=== PATIENT | male | born 1990 | race Caucasian/White ===

== ENCOUNTER → 2017-07-14 12:34 | Outpatient (CLI) | payer SELFPAY ==
[2017-07-14 16:12] LABS: Amphetamine Urine VISTA NEGATIVE (<1000 ng/mL); Barbiturate Urine VISTA NEGATIVE (< 200 ng/mL); Benzodiazepine Urine VISTA NEGATIVE (< 200 ng/mL); Cocaine Urine VISTA NEGATIVE (< 300 ng/mL); Ecstacy Urine VISTA NEGATIVE (< 500 ng/mL); Methadone Urine VISTA NEGATIVE (< 300 ng/mL); PCP Urine VISTA NEGATIVE (< 25 ng/mL); THC Urine VISTA POSITIVE (< 50 ng/mL); Vista UDS pH Range 6
== END ==
PROVIDERS: Family Provider Family Medicine; PCP Family Medicine; Visit Provider Family Medicine
DX: Z02.1 Encounter for pre-employment examination (principal)
CPT/HCPCS: 80307

== ENCOUNTER → 2017-07-25 10:55 | Outpatient (CLI) | payer SELFPAY ==
[2017-07-25 12:39] LABS: Amphetamine Urine VISTA NEGATIVE (<1000 ng/mL); Barbiturate Urine VISTA NEGATIVE (< 200 ng/mL); Benzodiazepine Urine VISTA NEGATIVE (< 200 ng/mL); Cocaine Urine VISTA NEGATIVE (< 300 ng/mL); Ecstacy Urine VISTA NEGATIVE (< 500 ng/mL); Methadone Urine VISTA NEGATIVE (< 300 ng/mL); PCP Urine VISTA NEGATIVE (< 25 ng/mL); THC Urine VISTA NEGATIVE (< 50 ng/mL); Vista UDS pH Range 6
== END ==
PROVIDERS: Family Provider Family Medicine; PCP Family Medicine; Visit Provider Family Medicine
DX: Z02.1 Encounter for pre-employment examination (principal)
CPT/HCPCS: 80307

== ENCOUNTER 2017-12-16 23:03 | Emergency (ER) | payer SELFPAY ==
[2017-12-16 23:03] VITALS: BP 129/83; PULSE 51; RESP 16; TEMP 36.3; O2SAT 99; BMI 21.4
[2017-12-16 23:26] LABS: Absolute Lymphocyte Count 2.47 X10^3/ul (0.83-4.51); Absolute Neutrophil Count 3.7 X10^3/uL (2.0-7.7); Basophil# 0.02 X10^3/uL; Basophil% 0.3 % (0-1); Eosinophil# 0.11 X10^3/uL; Eosinophils% 1.6 % (0-5); Hemoglobin 14.4 g/dl (13.0-16.5); Lymphocyte # 2.47 X10^3/ul (4.0); Lymphocyte % 35.8 % (19-41); Mean Corp Hgb Conc 35.1 g/gl (32-36); Mean Corpuscular Hgb 29.9 pg (27.0-32.0); Mean Corpuscular Volume 85.1 fL (80-94); Monocyte# 0.58 X10^3/uL; Monocyte% 8.4 % (0-10); Neutrophil # 3.71 X10^3/uL (2.7-7.7); Neutrophil % 53.8 % (47-70); POSITIVE COUNT NO; POSITIVE DIFFERENTIAL NO; POSITIVE MORPHOLOGY NO; Platelet Count 205 K/mm3 (150-450); RBC Distribution Width CV 12.2 % (11.6-14.6); RBC Distribution Width SD 37.4 fl (35.1-43.9); Red Blood Count 4.82 M/mm3 (4.6-6.2); White Blood Count 6.9 K/mm3 (4.4-11.0)
[2017-12-16 23:39] LABS: Anion Gap 7 (5-15); BUN 14 mg/dL (7-18); Calcium,Total 9.4 mg/dL (8.5-10.1); Chloride 106 mmol/L (98-107); Creatinine, Serum 1.17 mg/dL (0.70-1.30); EST Glomerular Filtration Rate 78 mL/min (>60); Est Glom Filt Rate - Afr Amer 94 mL/min (>60); Estimated Creatinine Clearance 116.55 ml/min; Glucose 93 mg/dL (74-106); Potassium 3.8 mmol/L (3.5-5.1); Sodium Level 142 mmol/L (136-145)
--- NOTE | 2017-12-16 23:40 | ED.DCSUM_ITS ---
- ER Visit Summary Date of Service: 12/16/17 Chief Complaint: Suicidal ideation History of Present Illness: The patient is a 27 M who presents with suicidal ideation by police. The patient has a 2-year-old son with his ex-girlfriend. He broke up with his ex-girlfriend, and she will not let him see his son. This has been going on for almost 2 years. He reports increasing thoughts of suicide. He has a depressed mood. He thought that he would cut his wrists. He shared this on social media, and a friend called police. Police did identify the knife that the patient plan to use. Patient denies any history of a psychiatric diagnosis or hospitalization. Denies suicide attempts in the past. Denies any medical complaints or medical problems. Physical Examination: Afebrile vital signs unremarkable except for heart rate of 51. He is nontoxic and in no acute distress. Depressed mood and flat affect. Head is atraumatic. Cranial nerves grossly intact. Heart regular. Lungs clear. Moves all extremities. Skin appears normal. Test Results: Laboratory studies, tox screen, alcohol level pending. Emergency Department Course and Treatment: Patient had suicide precautions. Medical clearance was ordered. Results are pending. Dr. Roberson will check results. He has been pink slipped by police. He will need evaluation by crisis and hospitalization. Treatment Plan: As above Disposition: Transfer for psychiatric care pending crisis evaluation Impression: 1. Suicidal ideation. This note was generated with [employer] dictation software. It may contain incorrect words, spelling, and punctuation that were not noted in review of the chart prior to signing ED Disposition - Plan for ED Patient: Chief Complaint: Suicidal Referrals: Armando Ro DO [Primary Care Provider] -
[2017-12-16 23:43] LABS: Alcohol, Blood (Medical)-Serum < 3.0 mg/dL
[2017-12-17] VITALS (13 sets, daily range): BP systolic 112–130; BP diastolic 62–79; PULSE 60–64; RESP 14–18; O2SAT 98–100
[2017-12-17 01:44] LABS: Amphetamine Urine VISTA NEGATIVE (<1000 ng/mL); Barbiturate Urine VISTA NEGATIVE (< 200 ng/mL); Benzodiazepine Urine VISTA NEGATIVE (< 200 ng/mL); Cocaine Urine VISTA NEGATIVE (< 300 ng/mL); Ecstacy Urine VISTA NEGATIVE (< 500 ng/mL); Methadone Urine VISTA NEGATIVE (< 300 ng/mL); PCP Urine VISTA NEGATIVE (< 25 ng/mL); THC Urine VISTA POSITIVE (< 50 ng/mL); Vista UDS pH Range 6
--- NOTE | 2017-12-17 05:09 | EKG12_ITS ---
Test Reason : Blood Pressure : / mmHG Vent. Rate : 050 BPM Atrial Rate : 050 BPM P-R Int : 160 ms QRS Dur : 094 ms QT Int : 444 ms P-R-T Axes : -26 088 059 degrees QTc Int : 404 ms Sinus bradycardia with sinus arrhythmia Otherwise normal ECG Confirmed by LEANN DE ANDA, LILIA ([id number]), movie editor KAVITHA JOEL ([id number]) on 12/19/2017 3:13:21 PM Referred By: BRE Confirmed By:LILIA NORIEGA MD
[2017-12-17 05:40] LABS: AST(SGOT) 22 U/L (15-37); Alanine Aminotransfer ALT/SGPT 24 U/L (16-61); Albumin, Serum 4.6 g/dL (3.2-5.0); Alkaline Phosphatase 48 U/L (45-117); Bilirubin, Direct 0.24 mg/dL (0.00-0.30); Globulin 3.5 g/dL (2.2-4.2); Protein, Total 8.1 g/dL (6.4-8.2)
--- NOTE | 2017-12-17 06:47 | ED.RN ---
PER ANDRE; NILSON; PT IS TO BE TRANSPORTED BY [facility] WHEN ACCEPTED TO [facility]
--- NOTE | 2017-12-17 11:21 | ED.RN ---
DARCY WITH CRISIS IS TOUCHING BASE WITH [facility] AND WILL CALL US BACK
--- NOTE | 2017-12-17 11:29 | ED.RN ---
PER DARCY WITH CRISIS; PT HAS BEEN ACCEPTED BY [facility], THERE IS ONE PERSON AHEAD OF HIM FOR A BED; THEY SHOULD HAVE ONE AVAILABLE FOR HIM THIS AFTERNOON
== END 2017-12-17 20:59 ==
LOC: ED 12-17 00:13
PROVIDERS: Emergency Provider Emergency Medicine
DX: R45.851 Suicidal ideations (principal); Z72.0 Tobacco use
CPT/HCPCS: 80048; 80076; 80307; 80320; 85025; 93005; 99282; G0480

== ENCOUNTER 2018-05-23 09:50 | Inpatient (IN) | payer SELFPAY ==
[2018-05-23 09:53] VITALS: BP 134/76; PULSE 16; RESP 68; TEMP 36.8; O2SAT 99; BMI 19.6
--- NOTE | 2018-05-23 10:07 | CT_ITS ---
STUDY: CT ABDOMEN AND PELVIS WITH CONTRAST REASON FOR EXAM: Male, 28 years old. Lower abdominal pain and constipation for 2 days. History of prior bowel obstruction. RADIATION DOSAGE (If Supplied By Facility): CTDIvol = ( 12.82 ) mGy, DLP = ( 670.98 ) mGycm TECHNIQUE: Transaxial images were obtained from the dome of the diaphragm to the symphysis pubis with oral contrast. 100CC ml of Isovue 300 contrast was administered. Sagittal and coronal images were reconstructed. Individualized dose optimization techniques were used for this CT. COMPARISON: Comparison is made with prior study dated November 29, 2016. FINDINGS: The visualized lung bases are unremarkable. The visualized portions of the heart are within normal limits. Normal liver. Normal gallbladder and extrahepatic biliary system. Normal spleen. Normal pancreas. Normal bilateral adrenal glands. Normal right kidney. Normal left kidney. Normal visualized stomach. There are dilated loops of the small intestine with a non-distended colon consistent with a small bowel obstruction. The transition point is in the distal ileum. There is thickening of the terminal ileum. The colon is not well distended with oral contrast. The appendix is visualized and appears normal. Normal abdominal aorta. Normal inferior vena cava. Normal retroperitoneum. Normal urinary bladder. Minimal amount of free fluid is seen in the cul-de-sac. Normal abdominal wall. Normal osseous structures. CT/Abdomen/Pelvis WITH Contrast IMPRESSION: There is evidence of small bowel obstruction with the transition point in the distal ileum. There appears to be thickening of the distal and terminal ileum. Clinical correlation is recommended. Electronically Signed: Javier Clifford MD at 12:52 EST Tel [phone], Service support ,
--- NOTE | 2018-05-23 10:09 | ED.VISSUMM ---
- ER Visit Summary Date of Service: 05/23/18 Chief Complaint: Abdominal pain History of Present Illness: The patient is a 28 M with a history of small bowel obstruction after eating a large amount of peanuts. The patient presents today with lower midline abdominal pain after eating peanuts again yesterday. He has no nausea or vomiting. No diarrhea. His last bowel movement was 2 days ago and it was normal. He says he is not passing gas. Denies any abdominal surgical history. Denies fevers. Denies urinary symptoms. Physical Examination: Afebrile and vital signs unremarkable. Alert and oriented. No acute distress. Lower abdomen is diffusely tender to palpation. No guarding or rebound. No distention. Hypoactive bowel sounds noted. Skin appears normal. Test Results: Laboratory studies, urinalysis, and CT pending. Emergency Department Course and Treatment: Patient treated with fluids, morphine, and Zofran while awaiting results. Labs are all fairly unremarkable. He required a second dose of morphine. CT showed evidence of a small bowel obstruction with a transition point at the distal ileum. Patient was discussed with the hospitalist and will be admitted. Treatment Plan: As above Disposition: Admission Impression: 1. Small bowel obstruction This note was generated with [employer] dictation software. It may contain incorrect words, spelling, and punctuation that were not noted in review of the chart prior to signing ED Disposition - Plan for ED Patient: Chief Complaint: Abd Pain Referrals: Care Physician,No Primary [Primary Care Provider] -
[2018-05-23 10:28] LABS: Absolute Lymphocyte Count 1.55 X10^3/ul (0.83-4.51); Basophil# 0.01 X10^3/uL; Basophil% 0.2 % (0-1); Eosinophil# 0.11 X10^3/uL; Eosinophils% 1.8 % (0-5); Hematocrit 45.4 % (40-54); Hemoglobin 15.3 g/dl (13.0-16.5); Lymphocyte # 1.55 X10^3/ul (4.0); Lymphocyte % 25.5 % (19-41); Mean Corp Hgb Conc 33.7 g/gl (32-36); Mean Corpuscular Hgb 29.3 pg (27.0-32.0); Mean Platelet Vol. 10.1 fl (6.2-12.0); Monocyte# 0.43 X10^3/uL; Monocyte% 7.1 % (0-10); Neutrophil # 3.98 X10^3/uL (2.7-7.7); Neutrophil % 65.2 % (47-70); Platelet Count 212 K/mm3 (150-450); RBC Distribution Width CV 12.4 % (11.6-14.6); RBC Distribution Width SD 39.8 fl (35.1-43.9); Red Blood Count 5.22 M/mm3 (4.6-6.2); White Blood Count 6.1 K/mm3 (4.4-11.0)
[2018-05-23 10:29] LABS: POSITIVE COUNT NO; POSITIVE DIFFERENTIAL NO; POSITIVE MORPHOLOGY NO
[2018-05-23] MEDS: Morphine 4 MG/ML Syringe IV ×3 (10:35→13:19)
[2018-05-23] MEDS: Ondansetron 4 MG/2 ML Vial IV (10:35)
[2018-05-23] MEDS: 0.9% Normal Saline 1,000 ML 1000 ML IV (10:35)
[2018-05-23 10:42] LABS: ALB/GLOB Ratio 1.1 RATIO (0.9-2.4); AST(SGOT) 15 U/L (15-37); Alanine Aminotransfer ALT/SGPT 22 U/L (16-61); Albumin, Serum 4.2 g/dL (3.2-5.0); Alkaline Phosphatase 50 U/L (45-117); Anion Gap 5 (5-15); BUN 20 mg/dL (7-18); BUN/Creat Ratio 17.7 RATIO (10-20); Calcium,Total 9.3 mg/dL (8.5-10.1); Chloride 107 mmol/L (98-107); Creatinine, Serum 1.13 mg/dL (0.70-1.30); EST Glomerular Filtration Rate 81 mL/min (>60); Est Glom Filt Rate - Afr Amer 98 mL/min (>60); Estimated Creatinine Clearance 109.77 ml/min; Globulin 3.8 g/dL (2.2-4.2); Glucose 104 mg/dL (74-106); Lipase 104 U/L (73-393); Potassium 4.3 mmol/L (3.5-5.1); Sodium Level 142 mmol/L (136-145)
[2018-05-23 12:24] VITALS: BP 127/84; PULSE 78; RESP 16; O2SAT 100
[2018-05-23 12:29] LABS: Bacteria 0 SEEN /hpf (None Seen); Mucous, Urine 0 SEEN /hpf (<or=2+); Red Blood Cells-Urine 0 SEEN /hpf (0-5); Squamous Epithelial Cells - UA 0 SEEN /hpf (0-5); White Blood Cells 0 SEEN /hpf (0-5)
[2018-05-23 12:31] LABS: Color, Urine Yellow (Yellow); Glucose, Dipstick Normal (Normal); Ketone-Dipstick Negative (Negative); Leukocyte Esterase-Dipstick Negative /ul (Negative); Nitrite-Dipstick Negative (Negative); Occult Blood-Urine Negative /ul (Negative); Protein-Dipstick Negative (Negative); Specific Gravity, Urine 1.005 (1.002-1.030); Urine Bilirubin Dipstick Negative (Negative); Urine Clarity Clear (Clear); Urine Urobilinogen Normal (Normal)
[2018-05-23 13:21] VITALS: BP 128/78; PULSE 61; RESP 16; O2SAT 97
--- NOTE | 2018-05-23 13:25 | NURSING ---
MED SURG SBO SEMENTI
--- NOTE | 2018-05-23 13:39 | HP.PCM_ITS ---
Problem List (1) SBO (small bowel obstruction) Status: Acute (2) Allergic angioedema Status: Suspected History of Present Illness Date of Admission: 05/23/18 Chief Complaint: abdominal pain The patient is a 28 year old M with no significant past medical history who presented to the emergency department at [facility] on 05/23/2018 complaining of severe abdominal pain that began after eating peanuts the previous day. He had a similar episode in the past after eating peanuts. He denies any rash or pruritus. He does not know of anyone in his family who has a peanut allergy. He has had no swelling of his tongue, lips or face. He denies nausea or vomiting. His last bowel movement was 2 days ago. Vital signs of presentation to the emergency room were temperature 98.2, pulse rate 16, blo od pressure 134/76, respiratory rate 16 and he was 99% saturated on room air. CBC was within normal limits and the electrolytes were within normal limits. BUN is increased to 20 with a creatinine of 1.13. LFTs are unremarkable. UA was negative. A CT scan of the abdomen and pelvis showed evidence of small bowel obstruction the transition point in the distal ileum. There appeared to be thickening of the distal and terminal ileum. He is being admitted for SBO and I suspect he may have angioedema of the bowel.....possibly due to a peanut allergy. Past Medical History Allergies Fish Containing Products Allergy (Verified 05/23/18 09:56) Itching Home Medications: Ambulatory Orders Medication Instructions Recorded No Known/Unobtainable [No Known 11/29/16 Home Medications] Surgical History: no surgical history Psychiatric History: No pertinent psych hx Lives: Alone Smoking Status: Never smoker Alcohol: None Drugs: None - *Family History Maternal History Items: Cancer - Breast cancer Review of Systems Constitutional: Denies: Chills, Fever, Weight Change HEENT: Denies: Head Aches, Sinus Congestion, Sinus Drainage Cardiovascular: Denies: Chest Pain, Palpitations Respiratory: Denies: Cough, Shortness of breath at rest, Sputum production Gastrointestinal: Reports: Abdominal Pain. Denies: Diarrhea, Nausea, Vomiting Genitourinary: Denies: Dysuria Musculoskeletal: Denies: Joint Pain, Joint Tenderness Skin: Denies: Rash, Wounds Neurological: Denies: Numbness, Tingling, Focal weakness Psychiatric: Denies: Anxiety, Depression, Homicidal Ideations, Suicidal Ideations Hematologic/ Lymphatic: Denies: Easy Bruising, Easy Bleeding VTE Information - Inpt Only VTE Present on Admission: No VTE Mechan Device Prophylaxis: None VTE Pharm Prophylaxis ordered?: No Reason prophylaxis not ordered:: Treatment Not Indicated - he is ambulatory and is at very low risk Patient Problems: Active and Suspected Problems SBO (small bowel obstruction) (Acute) Allergic angioedema (Suspected) - Physical Exam General: Alert, Oriented x3, Cooperative, Well developed, Well nourished HEENT: Atraumatic, PERRLA, EOMI Oral: Dry Mucosa Neck: Supple, No JVD, Negative Carotid Bruits, No Nodes, No Nuchal Rigidity, Trachea Midline Lungs: Clear to auscultation, Normal air movement Cardiovascular: Regular rate, Normal S1, Normal S2, No murmurs, No rub noted, No Gallop Abdomen: No Hepato-splenomegaly, Hypoactive Bowel Sounds, Distended - and tympanic, Tender - diffusely tender to palpation in the lower abd no guarding and no rebound tenderness. Extremities: No edema, Capillary Refill Less than 3 Seconds Skin: No rashes, No breakdown Musculoskeletal: No Tenderness to Palpation of Joints or Extremities Neurological: Cranial nerves II-XII grossly intact, Neuro grossly intact Psych/Mental Status: Normal Affect, Appropriate Vital Signs Temp Pulse Resp BP Pulse Ox 98.2 F 61 16 128/78 H 97 05/23/18 09:53 05/23/18 13:21 05/23/18 13:21 05/23/18 13:21 05/23/18 13:21 Oxygen Delivery Method Room Air Weight: 179 lb Body Mass Index (BMI) 19.6 Laboratory Tests Past 24 Hrs 05/23/18 05/23/18 05/23/18 10:18 10:18 12:19 WBC 6.1 RBC 5.22 Hgb 15.3 Hct 45.4 MCV 87.0 MCH 29.3 MCHC 33.7 RDW 12.4 RDW Differential 39.8 Plt Count 212 MPV 10.1 Immature Gran % (Auto) 0.200 Neut % (Auto) 65.2 Lymph % (Auto) 25.5 [place] % (Auto) 7.1 Eos % (Auto) 1.8 Baso % (Auto) 0.2 Absolute Neuts (auto) 4.0 Absolute Lymphs (auto) 1.55 Total Counted Not Reportable Sodium 142 Potassium 4.3 Chloride 107 Carbon Dioxide 30.0 Anion Gap 5 BUN 20 H Creatinine 1.13 Estim Creat Clear Calc 109.77 Est GFR (MDRD) Af Amer 98 Est GFR (MDRD) Non-Af 81 BUN/Creatinine Ratio 17.7 Glucose 104 Calcium 9.3 Total Bilirubin 0.40 AST 15 ALT 22 Alkaline Phosphatase 50 Total Protein 8.0 Albumin 4.2 Globulin 3.8 Albumin/Globulin Ratio 1.1 Lipase 104 Urine Color Yellow Urine Clarity Clear Urine pH 7.0 Ur Specific [place] 1.005 Urine Protein Negative Urine Glucose (UA) Normal Urine Ketones Negative Urine Occult Blood Negative Urine Nitrite Negative Urine Bilirubin Negative Urine Urobilinogen Normal Ur Leukocyte Esterase Negative Urine RBC 0 SEEN Urine WBC 0 SEEN Ur Squamous Epith Cells 0 SEEN Urine Bacteria 0 SEEN Urine Mucus 0 SEEN Assessment/Plan All Active Problems SBO (small bowel obstruction) (Acute) Colitis (Acute) Cellulitis (Resolved) Hip bursitis, left (Resolved) Tinea pedis of both feet (Resolved) Impressions 1. Small bowel obstruction suspected to be secondary to angioedema of the bowel possibly due to a peanut allergy 2. Mild dehydration [facility] because he has no nausea, no vomiting and CT does not show distention of the stomach Consult Dr. Ingrid Wolff for small bowel obstruction Start Benadryl, Pepcid and Solu-Medrol for suspected angioedema Send a food allergy panel C1q quantitative and functional Hydrate Encourage the patient to ambulate Code Visit Inpatient E&M: 49410 Init Hosp L2
[2018-05-23 14:32] VITALS: BP 118/69; PULSE 61; RESP 18; TEMP 37.2; O2SAT 99
[2018-05-23 14:33] VITALS: BMI 19.6
[2018-05-23 14:37] VITALS: BMI 19.6
[2018-05-23] MEDS: Lactated Ringers 1,000 ML 150 ML IV ×2 (14:46→20:41)
[2018-05-23] MEDS: Famotidine 20 MG Tablet 40 MG PO ×2 (14:47→21:39)
[2018-05-23] MEDS: DiphenhydrAMINE 50 MG/ML Syringe 25 MG IV ×2 (14:47→20:37)
[2018-05-23 14:57] VITALS: PULSE 60
[2018-05-23 15:21] LABS: Erythrocyte Sedimentation Rate < 1 mm/hr (0-15)
[2018-05-23 15:40] LABS: CRP < 2.90 mg/L (0.0-3.0)
[2018-05-23] MEDS: 0.9% NaCl Peripheral Flush Adult/Peds IV ×2 (17:30→17:33)
[2018-05-23 20:32] VITALS: BP 120/81; PULSE 52; RESP 16; TEMP 36.7; O2SAT 99
[2018-05-23] MEDS: morphine 10 MG/ML Syringe 6 MG IV (20:38)
--- NOTE | 2018-05-23 20:47 | PCM.CONS.B ---
- Consult Date of Consult: 05/23/18 - Reason for Consult Chief Complaint: abdominal pain, bowel obstruction History of Present Illness: 28 y/o WM presents with partial bowel obstruction. Had similar symptoms earlier this year, but patient states that this time, he came to the hospital earlier. Unknown family history for inflammatory bowel disease. Denies nausea/emesis. Denies fevers. Was to be scheduled for GI evaluation, but patient never obtained this. Past Medical History: denies major medical illnesses Past Surgical History: denies Past Injuries: denies head injuries, history of right foot fracture Medications: denies taking chronic medications Allergies: Has no known drug allergies Social history: TOB use denies Review of Systems: General - denies fevers, has weight loss 15-30# in past few days - patient states Cardiovascular denies chest pain, denies history of heart attack Pulmonary denies shortness of breath, denies coughing up blood Gastrointestinal as per HPI, denies blood in stools, denies diarrhea Neurological denies numbness/weakness of extremities, denies seizures Genitourinary denies burning with urination, denies blood in urine Hematological denies spontaneous/prolonged bleeding Skin denies open nonhealing wounds Musculoskeletal had right foot fracture in past, has some knee pains Endocrine denies diabetes Psychological denies suicidal ideation, denies hallucinations Physical examination: Vital signs Temp 97.7F HR 54 RR 16 BP 113/68 General WD/WN WM in no apparent distress, alert and oriented, not septic appearing HEENT Normocephalic. EOM intact with sclera clear and no icterus noted. Neck is supple with no jugular venous distention noted. Trachea is midline. Lungs normal breath sounds. No rales/rhonchi/wheezing noted. No labored breathing noted, such as retractions. No cough heard. Heart regular Abdomen soft and benign, generalized tenderness to deep palpation but no peritoneal signs, decreased bowel sounds, no distention of tympany noted Extremities no calf tenderness noted. No pitting edema noted. . Genitourinary/Rectal deferred Skin normal skin integrity. Neurological cranial nerves II-XII intact. Normal motor strength in arms and legs. No localized numbness detected. Psychological normal affect, patient is calm and appropriate Impression: terminal ileitis partial SBO Discussion/Plan: I have discussed the above with the patient. I have offered colonoscopy (with attempt to intubated ileocecal valve and evaluate terminal ileum), possible biopsies for evaluation of terminal ileitis. I have explained the procedure to the patient. I have counseled the patient as to the risks of the procedure, including but not limited to: infection, bleeding, injury to any intraabdominal organs such as liver/spleen, perforation of the GI tract, inability to complete the procedure, complications of anesthesia, etc. - he understands. He wishes to proceed. Will await resolution of bowel obstruction, suspect that this should happen in next 24 - 48 hours, and plan for colonoscopy, probably on Tuesday. I have answered all questions to the patient?s satisfaction and the patient has no further questions.
[2018-05-24] MEDS: morphine 10 MG/ML Syringe 6 MG IV (00:02)
[2018-05-24 02:30] VITALS: BP 113/69; PULSE 52; RESP 16; TEMP 36.4; O2SAT 99
[2018-05-24] MEDS: DiphenhydrAMINE 50 MG/ML Syringe 25 MG IV ×3 (02:34→13:56)
[2018-05-24] MEDS: Lactated Ringers 1,000 ML 150 ML IV ×2 (02:36→09:22)
[2018-05-24 07:51] VITALS: BP 120/69; PULSE 56; RESP 18; TEMP 36.7; O2SAT 99
[2018-05-24] MEDS: Famotidine 20 MG Tablet 40 MG PO (07:57)
--- NOTE | 2018-05-24 09:45 | CASEMGMT ---
CAMELIA NOGUERA Face to Face with patient for initial transition planning/care coordination assessment. RN CM introduced self and role at [facility]. Patient lying in bed, alert and oriented. Patient willing to participate in assessment and is able to answer all questions appropriately. Care providers, pharmacy, and demographics verified. Patient wishes to discharge home, denies needs. List of [facility] PCPs provided. Patient states he has no further needs or concerns at this time. CM to follow for discharge planning needs that may arise. Disposition Plan: Patient to discharge home with family support and follow-up plans in place. Elba ARCEO, RN, CM
--- NOTE | 2018-05-24 10:03 | CASEMGMT ---
Social Work Note Pt is listed as self-pay. Per PFS notes, pt was provided HCAP application and doesn't qualify for Medicaid. AUG[place]A met with pt. SW introduced self and role at [facility]. Pt is alert and orientated x4. Pt confirms that PFS spoke with him and he completed HCAP application. Pt states that he applied for Medicaid last year and denied filling out Medicaid application again. Pt states that he starts a new job on Tuesday and he will get insurance through his job. AUGUSTA provided pt with financial resources including [employer], [employer] [facility], [facility], and prescription assistance resources. Pt denied additional needs or concerns at this time. 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
--- NOTE | 2018-05-24 11:57 | PCM.PN.HOSP ---
Patient Problems: Active and Suspected Problems SBO (small bowel obstruction) (Acute) Allergic angioedema (Suspected) Subjective: Was seen and examined. He moved his bowels this morning. He described bowel movements as valladares in color. Denies any nausea or fever or chills or abdominal pain Vitals/I&O's: Vital Signs Temp Pulse Resp BP Pulse Ox 98.0 F 56 L 18 120/69 99 05/24/18 07:51 05/24/18 07:51 05/24/18 07:51 05/24/18 07:51 05/24/18 07:51 Oxygen Delivery Method Room Air Weight: 81 kg Body Mass Index (BMI) 19.6 Intake and Output for Last 24 Hours 05/22/18 05/23/18 05/24/18 23:59 23:59 23:59 Intake Total 462 / 462 3144 / 3144 Output Total 0 / 0 600 / 600 Balance 462 / 462 2544 / 2544 General: Alert, Oriented x3, Cooperative, No apparent distress HEENT: Atraumatic, PERRLA, EOMI, Normocephalic Oral: Moist Mucosa Neck: Supple, No JVD, Negative Carotid Bruits Lungs: Clear to auscultation, Normal air movement Cardiovascular: Regular rate, Regular Rhythm, Normal S1, Normal S2, No murmurs Abdomen: Bowel Sounds Present, Soft, Non Tender, Non-Distended, No Hepato-splenomegaly Extremities: No edema Skin: No rashes, No breakdown Musculoskeletal: No Tenderness to Palpation of Joints or Extremities Lymphatic: No Cervical, Supraclavicular, or Inguinal Adenopathy Neurological: Cranial nerves II-XII grossly intact Psych/Mental Status: Normal Affect, Appropriate Laboratory Results 05/23/18 10:18: Clam Allergen Pending, Codfish Allergen Pending, [place] Allergen Pending, Cow's Milk Allergen Pending, Egg White Allergen Pending, Peanut Allergen Pending, Scallop Allergen Pending, Sesame Seed IgE Ab Pending, Shrimp Allergen Pending, Soybean Allergen Pending, [place] Allergen Pending, Wheat Allergen Pending 05/23/18 10:18: C-React Prot Ext Range < 2.90 05/23/18 10:18: ESR < 1 05/23/18 12:19: Urine Color Yellow, Urine Clarity Clear, Urine pH 7.0, Ur Specific [place] 1.005, Urine Protein Negative, Urine Glucose (UA) Normal, Urine Ketones Negative, Urine Occult Blood Negative, Urine Nitrite Negative, Urine Bilirubin Negative, Urine Urobilinogen Normal, Ur Leukocyte Esterase Negative, Urine RBC 0 SEEN, Urine WBC 0 SEEN, Ur Squamous Epith Cells 0 SEEN, Urine Bacteria 0 SEEN, Urine Mucus 0 SEEN 05/23/18 14:55: C1 Esterase Inhibitor Pending, Func C1 Esterase Inhib Pending 05/23/18 14:55: Complement C4 Pending Current Medications Diphenhydramine HCl (Benadryl) 25 mg IV Q6H [facility] Last Admin: 05/24/18 07:53 Dose: 25 mg Famotidine (Pepcid) 40 mg PO BID [facility] Last Admin: 05/24/18 07:57 Dose: 40 mg Lactated Ringer's () 1,000 mls @ 150 mls/hr IV .Q6H40M [facility] Last Admin: 05/24/18 09:22 Dose: 150 mls/hr Methylprednisolone (Solu-Medrol) 40 mg IV Q6 [facility] Last Admin: 05/24/18 11:25 Dose: 40 mg Morphine Sulfate () 6 mg IV Q3H PRN PRN PRN Reason: SEVERE PAIN (6-10/10) Last Admin: 05/24/18 00:02 Dose: 6 mg Ondansetron HCl (Zofran) 4 mg IV Q6H PRN PRN PRN Reason: NAUSEA Sodium Chloride () 5 - 15 ml IV UD PRN PRN Reason: SALINE FLUSH Last Admin: 05/23/18 17:33 Dose: 10 ml Medical Necessity - Tobacco Use Smoking Status: Never smoker Assessment/Plan All Active Problems SBO (small bowel obstruction) (Acute) Colitis (Acute) Cellulitis (Resolved) Hip bursitis, left (Resolved) Tinea pedis of both feet (Resolved) 28 y/o male with history of colitis who presents with abdominal pain and found to have evidence of small bowel obstruction with transition point in the distal ileum with thickening of the distal and terminal ileum on CT abdomen/pelvis. 1. Abdominal pain secondary to possible small bowel obstruction, possible colitis suspected to be Crohn's Pain is resolved, patient has moved his bowels, vitals are stable, workup for possible food allergy is pending General surgery consulted, recommends colonoscopy Would start patient on a clear liquid diet 2. DVT PPx- early ambulation Code Visit Inpatient E&M: 79845 Subs Hosp L2
--- NOTE | 2018-05-24 12:08 | PN_ITS ---
Patient Problems: Active and Suspected Problems SBO (small bowel obstruction) (Acute) Allergic angioedema (Suspected) Subjective: Was seen and examined. He moved his bowels this morning. He described bowel movements as valladares in color. Denies any nausea or fever or chills or abdominal pain Vitals/I&O's: Vital Signs Temp Pulse Resp BP Pulse Ox 98.0 F 56 L 18 120/69 99 05/24/18 07:51 05/24/18 07:51 05/24/18 07:51 05/24/18 07:51 05/24/18 07:51 Oxygen Delivery Method Room Air Weight: 81 kg Body Mass Index (BMI) 19.6 Intake and Output for Last 24 Hours 05/22/18 05/23/18 05/24/18 23:59 23:59 23:59 Intake Total 462 / 462 3144 / 3144 Output Total 0 / 0 600 / 600 Balance 462 / 462 2544 / 2544 General: Alert, Oriented x3, Cooperative, No apparent distress HEENT: Atraumatic, PERRLA, EOMI, Normocephalic Oral: Moist Mucosa Neck: Supple, No JVD, Negative Carotid Bruits Lungs: Clear to auscultation, Normal air movement Cardiovascular: Regular rate, Regular Rhythm, Normal S1, Normal S2, No murmurs Abdomen: Bowel Sounds Present, Soft, Non Tender, Non-Distended, No Hepato- splenomegaly Extremities: No edema Skin: No rashes, No breakdown Musculoskeletal: No Tenderness to Palpation of Joints or Extremities Lymphatic: No Cervical, Supraclavicular, or Inguinal Adenopathy Neurological: Cranial nerves II-XII grossly intact Psych/Mental Status: Normal Affect, Appropriate Laboratory Results 05/23/18 10:18: Clam Allergen Pending, Codfish Allergen Pending, Crescent Allergen Pending, Cow's Milk Allergen Pending, Egg White Allergen Pending, Peanut Allergen Pending, Scallop Allergen Pending, Sesame Seed IgE Ab Pending, Shrimp Allergen Pending, Soybean Allergen Pending, [place] Allergen Pending, Wheat Allergen Pending 05/23/18 10:18: C-React Prot Ext Range < 2.90 05/23/18 10:18: ESR < 1 05/23/18 12:19: Urine Color Yellow, Urine Clarity Clear, Urine pH 7.0, Ur Spe cific [place] 1.005, Urine Protein Negative, Urine Glucose (UA) Normal, Urine Ketones Negative, Urine Occult Blood Negative, Urine Nitrite Negative, Urine Bilirubin Negative, Urine Urobilinogen Normal, Ur Leukocyte Esterase Negative, Urine RBC 0 SEEN, Urine WBC 0 SEEN, Ur Squamous Epith Cells 0 SEEN, Urine Bacteria 0 SEEN, Urine Mucus 0 SEEN 05/23/18 14:55: C1 Esterase Inhibitor Pending, Func C1 Esterase Inhib Pending 05/23/18 14:55: Complement C4 Pending Current Medications Diphenhydramine HCl (Benadryl) 25 mg IV Q6H [facility] Last Admin: 05/24/18 07:53 Dose: 25 mg Famotidine (Pepcid) 40 mg PO BID [facility] Last Admin: 05/24/18 07:57 Dose: 40 mg Lactated Ringer's () 1,000 mls @ 150 mls/hr IV .Q6H40M [facility] Last Admin: 05/24/18 09:22 Dose: 150 mls/hr Methylprednisolone (Solu-Medrol) 40 mg IV Q6 [facility] Last Admin: 05/24/18 11:25 Dose: 40 mg Morphine Sulfate () 6 mg IV Q3H PRN PRN PRN Reason: SEVERE PAIN (6-10/10) Last Admin: 05/24/18 00:02 Dose: 6 mg Ondansetron HCl (Zofran) 4 mg IV Q6H PRN PRN PRN Reason: NAUSEA Sodium Chloride () 5 - 15 ml IV UD PRN PRN Reason: SALINE FLUSH Last Admin: 05/23/18 17:33 Dose: 10 ml Medical Necessity - Tobacco Use Smoking Status: Never smoker Assessment/Plan All Active Problems SBO (small bowel obstruction) (Acute) Colitis (Acute) Cellulitis (Resolved) Hip bursitis, left (Resolved) Tinea pedis of both feet (Resolved) 28 y/o male with history of colitis who presents with abdominal pain and found to have evidence of small bowel obstruction with transition point in the distal ileum with thickening of the distal and terminal ileum on CT abdomen/pelvis. 1. Abdominal pain secondary to possible small bowel obstruction, possible colitis suspected to be Crohn's Pain is resolved, patient has moved his bowels, vitals are stable, workup for possible food allergy is pending General surgery consulted, recommends colonoscopy Would start patient on a clear liquid diet 2. DVT PPx- early ambulation Code Visit Inpatient E&M: 65006 Subs Hosp L2
[2018-05-24 13:50] VITALS: BP 113/66; PULSE 54; RESP 18; TEMP 36.5; O2SAT 98
--- NOTE | 2018-05-24 15:00 | PCM.DC.GS ---
Discharge Diet: - - clear liquid diet, NPO after midnight Discharge Activity: Return to Normal Activity, [address] Additional Instructions: Colonoscopy schedule at [place] [address] [facility], [place] [facility] at 8:40 am Clear liquid diet for the rest of the day Nothing to eat or drink after MDNT tonight Must have otr tanker truck driver with you Drink Golylely over 2-3 hours, can start around 6pm. Allergies/Adverse Reactions: Allergies Fish Containing Products Allergy (Verified 05/23/18 09:56) Itching Medications to take at Discharge No Known/Unobtainable [No Known Home Medications] 11/29/16 Primary Care Physician: Care Physician,No Primary [Primary Care Provider] - Test Results: Test results from this visit will be discussed in further detail at your follow-up appointment, if applicable. Please Follow Up With: Ingrid Wolff MD When: May 25, 2018 at [facility] [place]
--- NOTE | 2018-05-24 15:02 | PCM.DC ---
- Discharge Diagnoses Current Active Problems: Current Active and Chronic Problems SBO (small bowel obstruction) (Acute) Reason(s) for Visit for Discharge Instructions: Abdominal pain You will use the following diet at home:: Clear liquid Your liquids should be the consistency of: Regular/Thin Discharge Activity: Return to Normal Activity Additional Instructions: You will be discharged home with a bowel preparation to take. You should come back to the outpatient for colonoscopy with Dr. Wolff. Follow other directions per Dr. Wolff. Follow-up with your primary doctor for results of your allergy testing Allergies/Adverse Reactions: Allergies Fish Containing Products Allergy (Verified 05/23/18 09:56) Itching Medications to take at Discharge No Known/Unobtainable [No Known Home Medications] 11/29/16 Primary Care Physician: Care Physician,No Primary [Primary Care Provider] - Please follow up with your Primary Care Physician in: within 2 weeks of discharge Test Results: Test results from this visit will be discussed in further detail at your follow-up appointment, if applicable. Please Follow Up With: Ingrid Wolff MD When: tomorrow for colonoscopy Proposed Discharge Date: 05/24/18
--- NOTE | 2018-05-24 15:03 | DCINST_ITS ---
Discharge Diet: - - clear liquid diet, NPO after midnight Discharge Activity: Return to Normal Activity, [address] Additional Instructions: Colonoscopy schedule at [place] [address] [facility], [place] [facility] at 8:40 am Clear liquid diet for the rest of the day Nothing to eat or drink after MDNT tonight Must have electric train driver with you Drink Golylely over 2-3 hours, can start around 6pm. Allergies/Adverse Reactions: Allergies Fish Containing Products Allergy (Verified 05/23/18 09:56) Itching Medications to take at Discharge No Known/Unobtainable [No Known Home Medications] 11/29/16 Primary Care Physician: Care Physician,No Primary [Primary Care Provider] - Test Results: Test results from this visit will be discussed in further detail at your follow- up appointment, if applicable. Please Follow Up With: Ingrid Wolff MD When: May 25, 2018 at [facility] [place]
--- NOTE | 2018-05-24 15:03 | PCM.PN.SRG ---
Patient Problems: Active and Suspected Problems SBO (small bowel obstruction) (Acute) Allergic angioedema (Suspected) Subjective: patient feels greatly improved, passing flatus, had bowel movements - Physical Exam General: Alert, Oriented x3 Neck: Supple Abdomen: Bowel Sounds Present, Soft Vital Signs Temp Pulse Resp BP Pulse Ox 97.7 F L 54 L 18 113/66 98 05/24/18 13:50 05/24/18 13:50 05/24/18 13:50 05/24/18 13:50 05/24/18 13:50 Oxygen Delivery Method Room Air Weight: 81 kg Body Mass Index (BMI) 19.6 Intake and Output for Last 24 Hours 05/22/18 05/23/18 05/24/18 23:59 23:59 23:59 Intake Total 462 / 462 3144 / 3144 Output Total 0 / 0 600 / 600 Balance 462 / 462 2544 / 2544 Laboratory Tests Past 24 Hrs 05/23/18 05/23/18 05/23/18 10:18 10:18 14:55 ESR < 1 C-React Prot Ext Range < 2.90 C1 Esterase Inhibitor Pending Func C1 Esterase Inhib Pending Complement C4 05/23/18 14:55 ESR C-React Prot Ext Range C1 Esterase Inhibitor Func C1 Esterase Inhib Complement C4 Pending Medical Necessity - Tobacco Use Smoking Status: Never smoker Assessment/Plan All Active Problems SBO (small bowel obstruction) (Acute) Colitis (Acute) Cellulitis (Resolved) Hip bursitis, left (Resolved) Tinea pedis of both feet (Resolved) Impression: terminal ileitis?, abnormal CT scan, partial SBO - resolved Plan: discharge to home scheduled for colonoscopy tomorrow am 9:00, patient to present at 8:40
--- NOTE | 2018-05-24 15:05 | DCINST_ITS ---
- Discharge Diagnoses Current Active Problems: Current Active and Chronic Problems SBO (small bowel obstruction) (Acute) Reason(s) for Visit for Discharge Instructions: Abdominal pain You will use the following diet at home:: Clear liquid Your liquids should be the consistency of: Regular/Thin Discharge Activity: Return to Normal Activity Additional Instructions: You will be discharged home with a bowel preparation to take. You should come back to the outpatient for colonoscopy with Dr. Wolff. Follow other directions per Dr. Wolff. Follow-up with your primary doctor for results of your allergy testing Allergies/Adverse Reactions: Allergies Fish Containing Products Allergy (Verified 05/23/18 09:56) Itching Medications to take at Discharge No Known/Unobtainable [No Known Home Medications] 11/29/16 Primary Care Physician: Care Physician,No Primary [Primary Care Provider] - Please follow up with your Primary Care Physician in: within 2 weeks of discharge Test Results: Test results from this visit will be discussed in further detail at your follow- up appointment, if applicable. Please Follow Up With: Ingrid Wolff MD When: tomorrow for colonoscopy Proposed Discharge Date: 05/24/18
--- NOTE | 2018-05-24 15:05 | PCM.DC.SUM ---
Discharge Date and Diagnosis - Problem List Patient Problems: Active and Suspected Problems SBO (small bowel obstruction) (Acute) Allergic angioedema (Suspected) Date of Admission: 05/23/18 Date of Discharge: 05/24/18 - Primary Discharge Diagnosis Active and Suspected Problems SBO (small bowel obstruction) (Acute) Allergic angioedema (Suspected) Possible crohn's disease Hospital Course and Treatment Imaging Results: Clinical Impression(s) from Imaging Studies Abdomen/Pelvis CT 05/23/18 10:07 IMPRESSION: There is evidence of small bowel obstruction with the transition point in the distal ileum. There appears to be thickening of the distal and terminal ileum. Clinical correlation is recommended. Electronically Signed: Javier Clifford MD at 12:52 EST Tel [phone], Service support , General surgery - Dr. Wolff Operations: None Procedures: None Summary of Care Provided: 28 y/o male with history of colitis who was admitted with abdominal pain which he says happened after he ate a bag of peanuts. He denied any SOB. No signs of angioedema were found on exam. There was evidence of small bowel obstruction with transition point in the distal ileum with thickening of the distal and terminal ileum on CT abdomen/pelvis. He was managed conservatively on IV fluids, kept NPO. He moved his bowels and tolerated a liquid diet. He was seen by general surgery and plan is for outpatient colonoscopy. He will follow-up with his primary care doctor for results of the allergy testing. Patient Problems: Active and Suspected Problems SBO (small bowel obstruction) (Acute) Allergic angioedema (Suspected) Subjective: See progress note for day of discharge Objective: See progress note for day of discharge - Physical Exam Vital Signs Temp Pulse Resp BP Pulse Ox 97.7 F L 54 L 18 113/66 98 05/24/18 13:50 05/24/18 13:50 05/24/18 13:50 05/24/18 13:50 05/24/18 13:50 Oxygen Delivery Method Room Air Weight: 81 kg Body Mass Index (BMI) 19.6 Intake and Output for Last 24 Hours 05/22/18 05/23/18 05/24/18 23:59 23:59 23:59 Intake Total 462 / 462 3144 / 3144 Output Total 0 / 0 600 / 600 Balance 462 / 462 2544 / 2544 Laboratory Tests Past 24 Hrs 05/23/18 05/23/18 10:18 10:18 ESR < 1 C-React Prot Ext Range < 2.90 Discharge Diet: - - clear liquid diet, NPO after midnight Discharge Activity: Return to Normal Activity Home Medications: Medications to take at Discharge No Known/Unobtainable [No Known Home Medications] 11/29/16 Primary Care Physician: Care Physician,No Primary [Primary Care Provider] - Please follow up with your Primary Care Physician in: within 2 weeks of discharge Please Follow Up With: Ingrid Wolff MD When: tomorrow for colonoscopy Additional Instructions: Colonoscopy schedule at [address], [place] Be at the [facility] at 8:40 am Clear liquid diet for the rest of the day Nothing to eat or drink after MDNT tonight Must have hazmat tanker driver with you Drink Golylely over 2-3 hours, can start around 6pm. Disposition: Home Minutes spent on discharge:: 40 Medical Necessity - Tobacco Use Smoking Status: Never smoker Tobacco Use: Non-smoker Meaningful Use Info Meaningful Use Diagnoses (Choose all that apply): None applicable Code Visit OBSV E&M: 79249 Observation care discharge
--- NOTE | 2018-05-24 15:09 | DS.PCM_ITS ---
Discharge Date and Diagnosis - Problem List Patient Problems: Active and Suspected Problems SBO (small bowel obstruction) (Acute) Allergic angioedema (Suspected) Date of Admission: 05/23/18 Date of Discharge: 05/24/18 - Primary Discharge Diagnosis Active and Suspected Problems SBO (small bowel obstruction) (Acute) Allergic angioedema (Suspected) Possible crohn's disease Hospital Course and Treatment Imaging Results: Clinical Impression(s) from Imaging Studies Abdomen/Pelvis CT 05/23/18 10:07 IMPRESSION: There is evidence of small bowel obstruction with the transition point in the distal ileum. There appears to be thickening of the distal and terminal ileum. Clinical correlation is recommended. Electronically Signed: Javier Clifford MD at 12:52 EST Tel [phone], Service support , General surgery - Dr. Wolff Operations: None Procedures: None Summary of Care Provided: 28 y/o male with history of colitis who was admitted with abdominal pain which he says happened after he ate a bag of peanuts. He denied any SOB. No signs of angioedema were found on exam. There was evidence of small bowel obstruction with transition point in the distal ileum with thickening of the distal and terminal ileum on CT abdomen/pelvis. He was managed conservatively on IV fluids, kept NPO. He moved his bowels and tolerated a liquid diet. He was seen by general surgery and plan is for outpatient colonoscopy. He will follow-up with his primary care doctor for results of the allergy testing. Patient Problems: Active and Suspected Problems SBO (small bowel obstruction) (Acute) Allergic angioedema (Suspected) Subjective: See progress note for day of discharge Objective: See progress note for day of discharge - Physical Exam Vital Signs Temp Pulse Resp BP Pulse Ox 97.7 F L 54 L 18 113/66 98 05/24/18 13:50 05/24/18 13:50 05/24/18 13:50 05/24/18 13:50 05/24/18 13:50 Oxygen Delivery Method Room Air Weight: 81 kg Body Mass Index (BMI) 19.6 Intake and Output for Last 24 Hours 05/22/18 05/23/18 05/24/18 23:59 23:59 23:59 Intake Total 462 / 462 3144 / 3144 Output Total 0 / 0 600 / 600 Balance 462 / 462 2544 / 2544 Laboratory Tests Past 24 Hrs 05/23/18 05/23/18 10:18 10:18 ESR < 1 C-React Prot Ext Range < 2.90 Discharge Diet: - - clear liquid diet, NPO after midnight Discharge Activity: Return to Normal Activity Home Medications: Medications to take at Discharge No Known/Unobtainable [No Known Home Medications] 11/29/16 Primary Care Physician: Care Physician,No Primary [Primary Care Provider] - Please follow up with your Primary Care Physician in: within 2 weeks of discharge Please Follow Up With: Ingrid Wolff MD When: tomorrow for colonoscopy Additional Instructions: Colonoscopy schedule at [address], [place] Be at the [facility] at 8:40 am Clear liquid diet for the rest of the day Nothing to eat or drink after MDNT tonight Must have van cdl driver with you Drink Golylely over 2-3 hours, can start around 6pm. Disposition: Home Minutes spent on discharge:: 40 Medical Necessity - Tobacco Use Smoking Status: Never smoker Tobacco Use: Non-smoker Meaningful Use Info Meaningful Use Diagnoses (Choose all that apply): None applicable Code Visit OBSV E&M: 60350 Observation care discharge
[2018-05-24 15:30] VITALS: BP 115/68; PULSE 79; RESP 18; TEMP 36.8; O2SAT 99
[2018-05-24] MEDS: Electrolyte Solution/Peg's 4000 ML PO (15:40)
[2018-05-26 06:08] LABS: Clam <0.10 kU/L (Class 0); Codfish <0.10 kU/L (Class 0); Corn <0.10 kU/L (Class 0); Egg, White <0.10 kU/L (Class 0); Milk (Cow) <0.10 kU/L (Class 0); Peanut <0.10 kU/L (Class 0); SCALLOP <0.10 kU/L (Class 0); Shrimp <0.10 kU/L (Class 0); Soybean <0.10 kU/L (Class 0); Walnut, (Food) <0.10 kU/L (Class 0); Wheat <0.10 kU/L (Class 0)
[2018-05-26 12:35] LABS: SESAME SEED <0.10 kU/L (Class 0)
[2018-05-29 11:40] LABS: C1 EST Inhibitor, Functional 83 (.); C1 Esterase Inhibitor, Quant 22 mg/dL (21-39)
--- OUTSIDE RECORDS SUMMARY | 2018-07-09 10:25 | XMS RPT_ITS ---
:1990 Author Organization OHIP Care Team Providers Name Role Phone INGRID WOLFF Admitting Unavailable INGRID WOLFF Attending Unavailable INGRID WOLFF Referring Unavailable Primay Care Physicia, No Primary Care Unavailable Semenkeyonna, María Admitting Unavailable Ingrid Wolff Consulting Unavailable Paintsil, [place] Attending Unavailable SemenHe newbye Admitting Unavailable SemenMaría newby Attending Unavailable Primay Care Physicia, No Primary Care Unavailable Ingrid Wolff Consulting Unavailable SemenMaría newby Consulting Unavailable Armando Ro Attending Unavailable Jia, Armando Primary Care Unavailable Armando Ro Attending Unavailable Jia, Armando Primary Care Unavailable Criss Roberson Attending Unavailable Primay Care Physicia, No Primary Care Unavailable DmitriyMaría newby Admitting Unavailable Paintsil, [place] Attending Unavailable Primay Care Physicia, No Primary Care Unavailable Wolff Ingrid Consulting Unavailable Paintsil, [place] Consulting Unavailable PROBLEMS PROBLEMS DATE TYPE CONDITION / CODE ATTENDING STATUS SOURCE 05/25/2018 Active Unspecified INGRID WOLFF Active [facility] abdominal pain / [facility] R10.9(ICD-10) Repository 05/25/2018 Active Abnormal findings INGRID WOLFF Active [facility] on diagnostic [facility] imaging of other Repository specified body structures / R93.89(ICD-10) 05/24/2018 Unknown T78.3XXA - Paintsil, [place] Active [facility] edema, initial Hospital encounter / Repository T78.3XXA(ICD-10) 07/25/2017 Unknown Z02.1 - Encounter Jia, Armando Active [facility] for pre-employment Community examination / Hospital Z02.1(ICD-10) Repository PROCEDURES PROCEDURES No Procedure Records FoundRESULTS RESULTS PT ED Observed: 05/25/2018 Status: COMPLETED Source: [place] 11:54 AM [facility] REPOSITORY HNO ID: [id number] Author: Tracy Alonzo) CAMELIA Landry Service: (none) Author Type: Registered Nurse Type: Patient Education Filed: 05/25/2018 11:55 AM Note Text: POST OP LEARNING RESPONSE INSTRUCTION PROVIDED TO: Patient METHOD OF INSTRUCTION: Individual instruction Written instruction - handouts Verbal instruction PATIENT / FAMILY RESPONSE: Information received as demonstrated by interest and questions FOLLOW-UP PLAN: Follow up phone call. Contact information given. SUPPLEMENTAL MATERIAL: Procedure discharge instructions REFERRAL (RECOMMENDATION): None Electronically Signed By: Tracy Landry RN In Department: AMBULATORY SURGERY NURSING PROG Observed: 05/25/2018 Status: COMPLETED Source: [place] 11:54 AM [facility] REPOSITORY HNO ID: [id number] Author: Tracy Alonzo) CAMELIA Landry Service: (none) Author Type: Registered Nurse Type: Nursing Progress Note Filed: 05/25/2018 11:55 AM Note Text: Patient did not experience a fall prior to discharge. Patient did not experience a burn prior to discharge. Tracy Landry RN NURSING PROG Observed: 05/25/2018 Status: COMPLETED Source: [place] 10:42 AM [facility] REPOSITORY HNO ID: [id number] Author: Tracy Landry RN Service: (none) Author Type: Registered Nurse Type: Nursing Progress Note Filed: 05/25/2018 10:46 AM Note Text: Arrived in phase II via cart. Left lateral position. Sedated, but responds to verbal stimuli. Color normal; skin warm and dry. Respirations wnl and unlabored. Abdomen soft and with + bowel sounds in quads X 4. Tracy Landry RN NURSING PROG Observed: 05/25/2018 Status: COMPLETED Source: [place] 10:41 AM [facility] REPOSITORY HNO ID: [id number] Author: Michelle Gould RN Service: Nursing Author Type: Registered Nurse Type: Nursing Progress Note Filed: 05/25/2018 10:42 AM Note Text: Patient did not experience a fall within the Intraoperative area. Patient did not experience a burn within the Intraoperative area. Michelle Gould RN NURSING PROG Observed: 05/25/2018 Status: COMPLETED Source: [place] 10:10 AM [facility] REPOSITORY HNO ID: [id number] Author: Gege Kelly RN Service: (none) Author Type: Registered Nurse Type: Nursing Progress Note Filed: 05/25/2018 10:40 AM Note Text: [facility] PRE-OP NURSING HAND OFF NOTE SBAR Hand off given to Michelle Gould RN. Hand off was communicated verbally and at the patient's bedside and all questions were answered. FALLS/PLAZA Patient did not experience a fall within the Preoperative area. Patient did not experience a burn within the Preoperative area. Gege Kelly RN PT ED Observed: 05/25/2018 Status: COMPLETED Source: [place] 9:44 AM [facility] REPOSITORY HNO ID: [id number] Author: Gege Kelly RN Service: (none) Author Type: Registered Nurse Type: Patient Education Filed: 05/25/2018 9:44 AM Note Text: PRE OP LEARNING ASSESSMENT PROCEDURE/SURGERY: GI PROCEDURES: Colonoscopy READINESS TO LEARN COGNITIVE ABILITY: Alert and oriented MOTIVATION TO LEARN: Eager FAMILY SUPPORT: High - Very involved in pt care PATIENT LEARNS BEST BY: Multiple Methods FACTORS AFFECTING LEARNING: None PHYSICAL LIMITATIONS AFFECTING LEARNING: None Electronically Signed By: Gege Kelly RN In Department: AMBULATORY SURGERY CONSULTATION Observed: 05/25/2018 Status: F Source: [place] 7:[address] [facility] REPOSITORY [facility] Medical Records Department [address] [place] [address] Consultation 05/23/182046 MR#: [id number] Acct: [id number] Name: DIMAS DE LUNA Rep #: [id number] : 1990 28 From: Ingrid Wolff MD PCP: Care Physician, No Primary Status: DIS IN Y Location: MS3 [id number] - Consult Date of Consult: 05/23/18 - Reason for Consult Chief Complaint: abdominal pain, bowel obstruction History of Present Illness: 28 y/o WM presents with partial bowel obstruction. Had similar symptoms earlier this year, but patient states that this time, he came to the hospital earlier. Unknown family history for inflammatory bowel disease. Denies nausea/emesis. Denies fevers. Was to be scheduled for GI evaluation, but patient never obtained this. Past Medical History: denies major medical illnesses Past Surgical History: denies Past Injuries: denies head injuries, history of right foot fracture Medications: denies taking chronic medications Allergies: Has no known drug allergies Social history: TOB use denies Review of Systems: General - denies fevers, has weight loss 15-30# in past few days - patient states Cardiovascular denies chest pain, denies history of heart attack Pulmonary denies shortness of breath, denies coughing up blood Gastrointestinal as per HPI, denies blood in stools, denies diarrhea Neurological denies numbness/weakness of extremities, denies seizures Genitourinary denies burning with urination, denies blood in urine Hematological denies spontaneous/prolonged bleeding Skin denies open nonhealing wounds Musculoskeletal had right foot fracture in past, has some knee pains Endocrine denies diabetes Psychological denies suicidal ideation, denies hallucinations Physical examination: Vital signs Temp 97.7F HR 54 RR 16 BP 113/68 General WD/WN WM in no apparent distress, alert and oriented, not septic appearing HEENT Normocephalic. EOM intact with sclera clear and no icterus noted. Neck is supple with no jugular venous distention noted. Trachea is midline. Lungs normal breath sounds. No rales/rhonchi/wheezing noted. No labored breathing noted, such as retractions. No cough heard. Heart regular Abdomen soft and benign, generalized tenderness to deep palpation but no peritoneal signs, decreased bowel sounds, no distention of tympany noted Extremities no calf tenderness noted. No pitting edema noted. . Genitourinary/Rectal deferred Skin normal skin integrity. Neurological cranial nerves II-XII intact. Normal motor strength in arms and legs. No localized numbness detected. Psychological normal affect, patient is calm and appropriate Impression: terminal ileitis partial SBO Discussion/Plan: I have discussed the above with the patient. I have offered colonoscopy (with attempt to intubated ileocecal valve and evaluate terminal ileum), possible biopsies for evaluation of terminal ileitis. I have explained the procedure to the patient. I have counseled the patient as to the risks of the procedure, including but not limited to: infection, bleeding, injury to any intraabdominal organs such as liver/spleen, perforation of the GI tract, inability to complete the procedure, complications of anesthesia, etc. - he understands. He wishes to proceed. Will await resolution of bowel obstruction, suspect that this should happen in next 24 - 48 hours, and plan for colonoscopy, probably on Tuesday. I have answered all questions to the patient s satisfaction and the patient has no further questions. 05/25/18 0734 <Electronically signed by Ingrid Wolff MD> Date Ingrid Wolff MD Cosigner Signature (if applicable): Date CC: No Primary Care Physician; Ingrid Wolff MD Signed HISTORY PHYSICAL Observed: 05/25/2018 Status: COMPLETED Source: [place] 7:30 AM [facility] REPOSIT[facility] HNO ID: [id number] Author: Ingrid Wolff Service: (none) Author Type: Physician Type: HANDP Filed: 05/25/2018 7:34 AM Note Text: Chief Complaint: abdominal pain, bowel obstruction History of Present Illness: 28 y/o WM presents with partial bowel obstruction. Had similar symptoms earlier this year, but patient states that this time, he came to the hospital earlier. Unknown family history for inflammatory bowel disease. Denies nausea/emesis. Denies fevers. Was to be scheduled for GI evaluation, but patient never obtained this. Past Medical History: denies major medical illnesses Past Surgical History: denies Past Injuries: denies head injuries, history of right foot fracture Medications: denies taking chronic medications Allergies: Has no known drug allergies Social history: TOB use denies Review of Systems: General - denies fevers, has weight loss 15-30# in past few days - patient states Cardiovascular denies chest pain, denies history of heart attack Pulmonary denies shortness of breath, denies coughing up blood Gastrointestinal as per HPI, denies blood in stools, denies diarrhea Neurological denies numbness/weakness of extremities, denies seizures Genitourinary denies burning with urination, denies blood in urine Hematological denies spontaneous/prolonged bleeding Skin denies open nonhealing wounds Musculoskeletal had right foot fracture in past, has some knee pains Endocrine denies diabetes Psychological denies suicidal ideation, denies hallucinations Physical examination: Vital signs Temp 97.7F HR 54 RR 16 BP 113/68 General WD/WN WM in no apparent distress, alert and oriented, not septic appearing HEENT Normocephalic. EOM intact with sclera clear and no icterus noted. Neck is supple with no jugular venous distention noted. Trachea is midline. Lungs normal breath sounds. No rales/rhonchi/wheezing noted. No labored breathing noted, such as retractions. No cough heard. Heart regular Abdomen soft and benign, generalized tenderness to deep palpation but no peritoneal signs, decreased bowel sounds, no distention of tympany noted Extremities no calf tenderness noted. No pitting edema noted. . Genitourinary/Rectal deferred Skin normal skin integrity. Neurological cranial nerves II-XII intact. Normal motor strength in arms and legs. No localized numbness detected. Psychological normal affect, patient is calm and appropriate Impression: terminal ileitis partial SBO Discussion/Plan: I have discussed the above with the patient. I have offered colonoscopy for evaluation of abnormal findings of terminal ileum on CT scan. I have counseled patient as to the procedure and the potential risks, including but not restricted to: infection, bleeding, perforation of the GI tract, inability to complete the procedure, injury to any internal organ such as the liver/spleen, complications of anesthesia, etc. - he understands. He wishes to proceed. I have answered all questions to the patient?s satisfaction and the patient has no further questions. SURGICAL PATHOLOGY Observed: 05/25/2018 Status: F Source: [place] 12:00 AM [facility] REPOSITORY Specimen originated from [facility] Specimen #: [id number] Submitting Physician: INGRID WOLFF MD FINAL DIAGNOSIS Terminal ileum, biopsy - Small bowel mucosa with no diagnostic alteration. - No significant acute inflammation, granulomas or pyloric gland metaplasia. KL/lbk 05/26/2018 Deric Canales M.D. (Electronic Signature) SPECIMEN SUBMITTED A: TERMINAL ILEUM, BIOPSY CLINICAL DATA R10.9, R93.89 GROSS DESCRIPTION A. Received in formalin are four pieces of mancera, soft tissue aggregating to 1.2 x 0.2 x 0.1 cm. Totally submitted in one cassette. Gross examination performed at [facility], [address] [place] [address] 05/26/2018 1:46:51 AM Date of Report: 05/26/2018 Date of Procedure: 05/25/2018 Date of Receipt: 05/25/2018 Submitted by: INGRID WOLFF [facility] Diagnostic interpretation performed at [place] [address]. DISCHARGE SUMMARY Observed: 05/24/2018 Status: F Source: [place] 3:13 [facility] REPOSITORY [facility] Medical Records Department [address] [place] [address] Discharge Summary 05/24/18 1505 MR#: [id number] Acct: [id number] Name: DIMAS DE LUNA Rep #: [id number] : 1990 28 From: Yana Nieto MD PCP: Care Physician, No Primary Status: ADM IN Y Location: MS3 [id number] Discharge Date and Diagnosis - Problem List Patient Problems: Active and Suspected Problems SBO (small bowel obstruction) (Acute) Allergic angioedema (Suspected) Date of Admission: 05/23/18 Date of Discharge: 05/24/18 - Primary Discharge Diagnosis Active and Suspected Problems SBO (small bowel obstruction) (Acute) Allergic angioedema (Suspected) Possible crohn's disease Hospital Course and Treatment Imaging Results: Clinical Impression(s) from Imaging Studies Abdomen/Pelvis CT 05/23/18 10:07 IMPRESSION: There is evidence of small bowel obstruction with the transition point in the distal ileum. There appears to be thickening of the distal and terminal ileum. Clinical correlation is recommended. Electronically Signed: Javier Clifford MD at 12:52 EST Tel [phone], Service support , General surgery - Dr. Wolff Operations: None Procedures: None Summary of Care Provided: 28 y/o male with history of colitis who was admitted with abdominal pain which he says happened after he ate a bag of peanuts. He denied any SOB. No signs of angioedema were found on exam. There was evidence of small bowel obstruction with transition point in the distal ileum with thickening of the distal and terminal ileum on CT abdomen/pelvis. He was managed conservatively on IV fluids, kept NPO. He moved his bowels and tolerated a liquid diet. He was seen by general surgery and plan is for outpatient colonoscopy. He will follow- up with his primary care doctor for results of the allergy testing. Patient Problems: Active and Suspected Problems SBO (small bowel obstruction) (Acute) Allergic angioedema (Suspected) Subjective: See progress note for day of discharge Objective: See progress note for day of discharge - Physical Exam Vital Signs Temp Pulse Resp BP Pulse Ox 97.7 F L 54 L 18 113/66 98 05/24/18 13:50 05/24/18 13:50 05/24/18 13:50 05/24/18 13:50 05/24/18 13:50 Oxygen Delivery Method Room Air Weight: 81 kg Body Mass Index (BMI) 19.6 Intake and Output for Last 24 Hours Intake Total 462 / 462 3144 / 3144 Output Total 0 / 0 600 / 600 Balance 462 / 462 2544 / 2544 Laboratory Tests Past 24 Hrs ESR < 1 C-React Prot Ext Range < 2.90 Discharge Diet: - - clear liquid diet, NPO after midnight Discharge Activity: Return to Normal Activity Home Medications: Medications to take at Discharge No Known/Unobtainable [No Known Home Medications] 11/29/16 Primary Care Physician: Care Physician,No Primary [Primary Care Provider] - Please follow up with your Primary Care Physician in: within 2 weeks of discharge Please Follow Up With: Ingrid Wolff MD When: tomorrow for colonoscopy Additional Instructions: Colonoscopy schedule at [address], [place] [facility] at the [facility] at 8:40 am Clear liquid diet for the rest of the day Nothing to eat or drink after MDNT tonight Must have delivery route driver with you Drink Golylely over 2-3 hours, can start around 6pm. Disposition: Home Minutes spent on discharge:: 40 Medical Necessity - Tobacco Use Smoking Status: Never smoker Tobacco Use: Non-smoker Meaningful Use Info Meaningful Use Diagnoses (Choose all that apply): None applicable Code Visit OBSV E AND M: 50364 Observation care discharge 05/24/18 1513 <Electronically signed by Yana Nieto MD> Date Yana Nieto MD Cosigner Signature (if applicable): Date CC: No Primary Care Physician; Yana Nieto MD Signed DISCHARGE INSTRUCTION Observed: 05/24/2018 Status: F [facility] [place] [facility] Medical Records Department [address] [place] [address] Instructions for Home/Discharge Instructions 05/24/18 1502 MR#: [id number] Acct: [id number] Name: DIMAS DE LUNA Rep #: [id number] : 1990 28 From: Yana Nieto MD PCP: Care Physician, No Primary Status: ADM IN - Discharge Diagnoses Current Active Problems: Current Active and Chronic Problems SBO (small bowel obstruction) (Acute) Reason(s) for Visit for Discharge Instructions: Abdominal pain You will use the following diet at home:: Clear liquid Your liquids should be the consistency of: Regular/Thin Discharge Activity: Return to Normal Activity Additional Instructions: You will be discharged home with a bowel preparation to take. You should come back to the outpatient for colonoscopy with Dr. Wolff. Follow other directions per Dr. Wolff. Follow-up with your primary doctor for results of your allergy testing Allergies/Adverse Reactions: Allergies Fish Containing Products Allergy (Verified 05/23/18 09:56) Itching Medications to take at Discharge No Known/Unobtainable [No Known Home Medications] 11/29/16 Primary Care Physician: Care Physician,No Primary [Primary Care Provider] - Please follow up with your Primary Care Physician in: within 2 weeks of discharge Test Results: Test results from this visit will be discussed in further detail at your follow-up appointment, if applicable. Please Follow Up With: Ingrid Wolff MD When: tomorrow for colonoscopy Proposed Discharge Date: 05/24/18 05/24/18 1505 <Electronically signed by Yana Nieto MD> Date Yana Nieto MD CC: No Primary Care Physician; Ingrid Wolff MD DISCHARGE INSTRUCTION Observed: 05/24/2018 Status: F Source: [place] 3:[address] [facility] REPOSITORY [facility] Medical Records Department [address] [place] [address] Instructions for Home/Discharge Instructions 05/24/18 1500 MR#: [id number] Acct: [id number] Name: DIMAS DE LUNA Rep #: [id number] : 1990 28 From: Ingrid Wolff MD PCP: Care Physician, No Primary Status: ADM IN Discharge Diet: - - clear liquid diet, NPO after midnight Discharge Activity: Return to Normal Activity, May Drive Additional Instructions: Colonoscopy schedule at [address], [place] [facility] at [facility] at 8:40 am Clear liquid diet for the rest of the day Nothing to eat or drink after MDNT tonight Must have delivery route driver with you Drink Golylely over 2-3 hours, can start around 6pm. Allergies/Adverse Reactions: Allergies Fish Containing Products Allergy (Verified 05/23/18 09:56) Itching Medications to take at Discharge No Known/Unobtainable [No Known Home Medications] 11/29/16 Primary Care Physician: Care Physician,No Primary [Primary Care Provider] - Test Results: Test results from this visit will be discussed in further detail at your follow-up appointment, if applicable. Please Follow Up With: Ingrid Wolff MD When: May 25, 2018 at [facility] [place] 05/24/18 1503 <Electronically signed by Ingrid Wolff MD> Date Ingrid Wolff MD CC: No Primary Care Physician; Ingrid Wolff MD HOSP Observed: 05/24/2018 Status: COMPLETED Source: [place] 12:00 AM [facility] RE[facility] Patient:Dimas De Luna MRN: <[id number]> Height:6' 5(1.956 m) Weight:No patient weight recorded within the last 30 days. Outpatient Medications as of 05/25/18: Patient has no current outpatient medications. Admission/Clinic Administered Medications as of 05/25/18: lactated ringers infusion Problem List: Unspecified asthma(493.90) [J45.909] Attention deficit disorder with hyperactivity(314.01) [F90.9] Allergies: Poison Marj Date Verified: 05/25/18 Lab Values No results within the last 30 days for the following basenames: K,HCT Progress Notes ([facility]): Jordon Joel 05/24/2018 3:03 PM Signed Health Information For Patients and the Community How to Prepare for Your Colonoscopy Using Golytely, Nulytely, Trilyte or Colyte Preparations IMPORTANT - Please Read These Instructions at Least 2 Weeks Before Your Colonoscopy Soares Instructions: ?Your bowel must be empty so that your doctor can clearly view your colon. Follow all of the instructions in this handout EXACTLY as they are written. If you do NOT follow the directions for when to start drinking the bowel preparation (see next page), your colonoscopy WILL be cancelled. ?Do NOT eat any solid food the ENTIRE day before your colonoscopy. ?Buy your bowel preparation at least 5 days before your colonoscopy. ?Do NOT mix the solution until the day before your colonoscopy. Designated Traffic Workforce Representative on the Day of Your Exam A responsible family member or friend MUST come with you to your colonoscopy and REMAIN in the endoscopy area until you are discharged! You are NOT ALLOWED to drive, take a taxi or bus, or leave the Endoscopy Center ALONE. If you do not have a responsible delivery route driver (family member or friend) with you to take you home, your exam cannot be done with sedation and will be cancelled. Medications Some of the medicines you take may need to be stopped or adjusted before your colonoscopy. You MUST call the doctor who ordered any of the following medicines at least 2 weeks before your colonoscopy. ?Blood thinners -- such as Coumadin? (warfarin), Plavix? (clopidogrel), Ticlid? (ticlopidine hydrochloride), Agrylin? (anagrelide), Xarelto? (Rivaroxaban), Pradaxa? (Dabigatran), Eliquis? (Apixaban), and Effient? (Prasugrel). ?Insulin or diabetes pills. Please call the doctor that monitors your glucose levels. Your insulin dosage may need to be adjusted due to the diet restrictions required with this bowel preparation. (Please bring your diabetes medicines with you on the day of your procedure.) If you take aspirin, take it and ALL other medications prescribed by your doctor. On the day of your colonoscopy, take your medications with a sip of water. Revised 07/2016 1 Five (5) Days Before Your Colonoscopy ?Do NOT take medicines that stop diarrhea -- such as Imodium?, Kaopectate?, or Pepto Bismol?. ?Do NOT take fiber supplements -- such as Metamucil?, Citrucel?, or Perdiem?. ?Do NOT take products that contain iron -- such as multi-vitamins -- (the label lists what is in the products). ?Do NOT take vitamin E. Buy the prescription bowel preparation solution at your local pharmacy or drugstore pharmacy. Three (3) Days Before Your Colonoscopy Do NOT eat high-fiber foods -- such as popcorn, beans, seeds (flax, sunflower, quinoa), multigrain bread, nuts, salad/vegetables, or fresh and dried fruit. One (1) Day Before Your Colonoscopy Only drink clear liquids the ENTIRE DAY before your colonoscopy. Do NOT eat any solid foods. Drink at least 8 ounces of clear liquids every hour after waking up. The clear liquids you can drink include: ?water, apple, or white grape juice; broth; coffee or tea (without milk or creamer); clear carbonated beverages such as jeffery dakota or lemon-[place] soda; Gatorade? or other sports drinks (not red); Ned-Aid? or other flavored drinks (not red). You may eat plain jello or other gelatins (not red) or popsicles (not red). Do NOT drink alcohol on the day before or the day of the procedure. 2 Revised 07/2016 When to Mix and Drink Your Bowel Prep Follow the instructions on the label. After mixing, place the solution in the refrigerator for a couple of hours before drinking. You may add the flavor packet that came with the bowel preparation. DO NOT add ice, sugar or any flavorings to the solution. Evening Before Your Colonoscopy ?Start drinking the bowel preparation at 6 PM the evening before your colonoscopy. Drink an 8-oz glass of bowel preparation every 10 minutes. You must finish drinking the solution by 9 PM the night before your scheduled procedure. ?You may continue to drink clear liquids only until midnight. Do NOT eat or drink ANYTHING after midnight the night before your procedure or your procedure may be cancelled. This is for your safety and will reduce the risk of having any food or liquid in your stomach move into your lungs (aspiration) during a procedure. If you take aspirin, take it and ALL other prescribed medicines with a sip of water on the day of your colonoscopy. Contact Information: If you are unable to keep your appointment or have any questions about the instructions, please call the facility where the procedure is being performed. Call between the hours of 8:00 AM and 5:00 PM. If you are calling after 5:00 PM, please call Nurse data integration analyst at [phone]. [facility] [address] [place] [id number] Index # [id number] Revised 07/2016 3 Colonoscopy Procedure Overview Please Read Prior to the Procedure What is a Colonoscopy A colonoscopy is an outpatient procedure in which the inside of the large intestine (colon and rectum) is examined. A colonoscopy is commonly used to evaluate gastrointestinal symptoms, such as rectal and intestinal bleeding, abdominal pain, or changes in bowel habits. Colonoscopies are also performed in individuals without symptoms to check for colorectal polyps or cancer. A screening colonoscopy is recommended for anyone 50 years of age and older, and for anyone with parents, siblings or children with a history of colorectal cancer or polyps. What Happens Before a Colonoscopy To have a successful colonoscopy, your bowel must be empty so that your physician can clearly view the colon. To do this, it is very important to read and follow all of the instructions given to you at least 2 weeks BEFORE your exam. If your bowel is not empty, your colonoscopy will not be successful and may have to be repeated. If you feel nauseated or vomit while taking the bowel preparation, wait 30 minutes before drinking more fluid and start with small sips of solution. Some activity (such as walking) or a few soda crackers may help decrease the nausea you are feeling. If the nausea persists, please contact nurse surgical nurse practitioner at [phone]. You may experience skin irritation around the anus due to the passage of liquid stools. To prevent and treat skin irritation, you should: ?Apply Vaseline? or Desitin? ointment to the skin around the anus before drinking the bowel preparation medications. These products can be purchased at any drugstore. ?Wipe the skin after each bowel movement with disposable wet wipes instead of toilet paper. These are found in the toilet paper area of the store. ?Sit in a bathtub filled with warm water for 10 to 15 minutes after you finish passing a stool; after soaking, blot the skin dry with a soft cloth, apply Vaseline? or Desitin? ointment to the anal area, and place a cotton ball just outside your anus to absorb leaking fluid. What Happens During a Colonoscopy During a colonoscopy, an experienced physician uses a colonoscope (a long, flexible instrument about 1/2 inch in diameter) to view the lining of the colon. The colonoscope is inserted into the rectum and advanced through the large intestine. If necessary during a colonoscopy, small amounts of tissue can be removed for analysis (a biopsy) and polyps can be identified and entirely removed. In many cases, a colonoscopy allows accurate diagnosis and treatment of colorectal problems without the need for a major operation. Revised 07/2016 5 ?You are asked to wear a hospital gown and an IV will be started. ?You are given a pain reliever and a sedative intravenously (in your vein). You will feel relaxed and somewhat drowsy. ?You will lie on your left side, with your knees drawn up towards your chest. ?A small amount of air is used to expand the colon so the physician can see the colon moseley. ?You may feel mild cramping during the procedure. Cramping can be reduced by taking slow, deep breaths. ?The colonoscope is slowly withdrawn while the lining of your bowel is carefully examined. ?The procedure lasts from 30 minutes to 1 hour. What Happens After a Colonoscopy ?You will stay in a recovery room for observation until you are ready for discharge. ?You may feel some cramping or a sensation of having gas, but this quickly passes. ?If sedation has been given, a responsible family member or friend must drive you home. ?Avoid alcohol, driving, and operating machinery for 24 hours following the procedure. ?Unless otherwise instructed, you may immediately return to your normal diet. We recommend you wait until the day after your procedure to resume normal activities. ?If polyps were removed or a biopsy was taken, the physician performing your colonoscopy will tell you when it is safe to resume taking your blood thinners. ?If a biopsy was taken or a polyp was removed, you may notice a little amount of rectal bleeding for 1 to 2 days after the procedure. If you have a large amount of rectal bleeding, high or persistent fevers, or severe abdominal pain within the next 2 weeks, please go to your local emergency room and call the physician who performed your exam. 6 Revised 07/2016 ?Copyright 6090-0911 [facility]. All rights reserved. Revised 07/2016 Jordon Joel 05/24/2018 3:03 PM Signed patient scheduled 05-25-[address] New Joel EMERGENCY DEPARTMENT Observed: 05/23/2018 Status: F Source: [place] SUMMARY 3:[address] [facility] REPOSITORY [facility] Medical Records Department [address] [place] [address] Emergency Department Summary 05/23/18 1009 MR#: [id number] Acct: [id number] Name: DIMAS DE LUNA Rep #: [id number] : 1990 28 From: Mat Boggs MD PCP: Care Physician, No Primary Status: ADM IN - ER Visit Summary Date of Service: 05/23/18 Chief Complaint: Abdominal pain History of Present Illness: The patient is a 28 M with a history of small bowel obstruction after eating a large amount of peanuts. The patient presents today with lower midline abdominal pain after eating peanuts again yesterday. He has no nausea or vomiting. No diarrhea. His last bowel movement was 2 days ago and it was normal. He says he is not passing gas. Denies any abdominal surgical history. Denies fevers. Denies urinary symptoms. Physical Examination: Afebrile and vital signs unremarkable. Alert and oriented. No acute distress. Lower abdomen is diffusely tender to palpation. No guarding or rebound. No distention. Hypoactive bowel sounds noted. Skin appears normal. Test Results: Laboratory studies, urinalysis, and CT pending. Emergency Department Course and Treatment: Patient treated with fluids, morphine, and Zofran while awaiting results. Labs are all fairly unremarkable. He required a second dose of morphine. CT showed evidence of a small bowel obstruction with a transition point at the distal ileum. Patient was discussed with the hospitalist and will be admitted. Treatment Plan: As above Disposition: Admission Impression: 1. Small bowel obstruction This note was generated with Imagimod dictation software. It may contain incorrect words, spelling, and punctuation that were not noted in review of the chart prior to signing ED Disposition - Plan for ED Patient: Chief Complaint: Abd Pain Referrals: Care Physician,No Primary [Primary Care Provider] - What to do if you have Problems For any increased pain, shortness of breath, bleeding, nausea or vomiting, chest pain, or any unexpected problems, contact your Primary Care Provider. Call [employer] [facility] ([phone]) or report to the closest Emergency Room. Call 911 if necessary. 05/23/18 1536 <Electronically signed by Mat Boggs MD> Date Mat Boggs MD Cosigner Signature (If Indicated): Date CC: No Primary Care Physician HISTORY AND PHYSICAL Observed: 05/23/2018 Status: F Source: [place] EXAM 3:[address] [facility] REPOSITORY [facility] Medical Records Department [address] [place] [address] History and Physical 05/23/18 1337 MR#: [id number] Acct: [id number] Name: ENGLISHDIMAS Nomi Rep #: [id number] : 1990 28 From: Guadalupe Elliott DO PCP: Care Physician, No Primary Status: ADM IN Y Location: [facility] [id number] Problem List (1) SBO (small bowel obstruction) Status: Acute (2) Allergic angioedema Status: Suspected History of Present Illness Date of Admission: 05/23/18 Chief Complaint: abdominal pain The patient is a 28 year old M with no significant past medical history who presented to the emergency department at [facility] on 05/23/2018 complaining of severe abdominal pain that began after eating peanuts the previous day. He had a similar episode in the past after eating peanuts. He denies any rash or pruritus. He does not know of anyone in his family who has a peanut allergy. He has had no swelling of his tongue, lips or face. He denies nausea or vomiting. His last bowel movement was 2 days ago. Vital signs of presentation to the emergency room were temperature 98.2, pulse rate 16, blood pressure 134/76, respiratory rate 16 and he was 99% saturated on room air. CBC was within normal limits and the electrolytes were within normal limits. BUN is increased to 20 with a creatinine of 1.13. LFTs are unremarkable. UA was negative. A CT scan of the abdomen and pelvis showed evidence of small bowel obstruction the transition point in the distal ileum. There appeared to be thickening of the distal and terminal ileum. He is being admitted for SBO and I suspect he may have angioedema of the bowel.....possibly due to a peanut allergy. Past Medical History Allergies Fish Containing Products Allergy (Verified 05/23/18 09:56) Itching Home Medications: Ambulatory Orders Medication Instructions Recorded No Known/Unobtainable [No Known 11/29/16 Home Medications] Surgical History: no surgical history Psychiatric History: No pertinent psych hx Lives: Alone Smoking Status: Never smoker Alcohol: None Drugs: None - *Family History Maternal History Items: Cancer - Breast cancer Review of Systems Constitutional: Denies: Chills, Fever, Weight Change HEENT: Denies: Head Aches, Sinus Congestion, Sinus Drainage Cardiovascular: Denies: Chest Pain, Palpitations Respiratory: Denies: Cough, Shortness of breath at rest, Sputum production Gastrointestinal: Reports: Abdominal Pain. Denies: Diarrhea, Nausea, Vomiting Genitourinary: Denies: Dysuria Musculoskeletal: Denies: Joint Pain, Joint Tenderness Skin: Denies: Rash, Wounds Neurological: Denies: Numbness, Tingling, Focal weakness Psychiatric: Denies: Anxiety, Depression, Homicidal Ideations, Suicidal Ideations Hematologic/ Lymphatic: Denies: Easy Bruising, Easy Bleeding VTE Information - Inpt Only VTE Present on Admission: No VTE Mechan Device Prophylaxis: None VTE Pharm Prophylaxis ordered?: No Reason prophylaxis not ordered:: Treatment Not Indicated - he is ambulatory and is at very low risk Patient Problems: Active and Suspected Problems SBO (small bowel obstruction) (Acute) Allergic angioedema (Suspected) - Physical Exam General: Alert, Oriented x3, Cooperative, Well developed, Well nourished HEENT: Atraumatic, PERRLA, EOMI Oral: Dry Mucosa Neck: Supple, No JVD, Negative Carotid Bruits, No Nodes, No Nuchal Rigidity, Trachea Midline Lungs: Clear to auscultation, Normal air movement Cardiovascular: Regular rate, Normal S1, Normal S2, No murmurs, No rub noted, No Gallop Abdomen: No Hepato-splenomegaly, Hypoactive Bowel Sounds, Distended - and tympanic, Tender - diffusely tender to palpation in the lower abd no guarding and no rebound tenderness. Extremities: No edema, Capillary Refill Less than 3 Seconds Skin: No rashes, No breakdown Musculoskeletal: No Tenderness to Palpation of Joints or Extremities Neurological: Cranial nerves II-XII grossly intact, Neuro grossly intact Psych/Mental Status: Normal Affect, Appropriate Vital Signs Temp Pulse Resp BP Pulse Ox 98.2 F 61 16 128/78 H 97 05/23/18 09:53 05/23/18 13:21 05/23/18 13:21 05/23/18 13:21 05/23/18 13:21 Oxygen Delivery Method Room Air Weight: 179 lb Body Mass Index (BMI) 19.6 Laboratory Tests Past 24 Hrs Assessment/Plan All Active Problems SBO (small bowel obstruction) (Acute) Colitis (Acute) Cellulitis (Resolved) Hip bursitis, left (Resolved) Tinea pedis of both feet (Resolved) Impressions 1. Small bowel obstruction suspected to be secondary to angioedema of the bowel possibly due to a peanut allergy 2. Mild dehydration Admit to [facility] at this time because he has no nausea, no vomiting and CT does not show distention of the stomach Consult Dr. Ingrid Wolff for small bowel obstruction Start Benadryl, Pepcid and Solu-Medrol for suspected angioedema Send a food allergy panel C1q quantitative and functional Hydrate Encourage the patient to ambulate Code Visit Inpatient E AND M: [id number] Init Hosp L2 05/23/18 1509 <Electronically signed by Guadalupe Elliott DO> Date Guadalupe Elliott DO Cosigner Signature: Date (if applicable) CC: No Primary Care Physician; María Elliott Signed COMPLEMENT C4 Collected: 05/23/2018 Status: F Source: [place] 2:[address] [facility] REPOSITORY TYPE CODE TESTS RESULT OUT OF RANGE REFERENCE UNITS LAB L3100.5800 14-44 mg/dL Normal COMP C4 17 Result Comment: Performed at: [facility] [place] [id number] Hotel Front Desk Clerk: Melecio Herrera PhD, Phone: [phone] Performed By: #### L3100.5800 #### [facility] (refer to report for specific site) refer to report for address and phone number C1 ESTERASE INHIBITOR, Collected: 05/23/2018 Status: F Source: [place] QUANT 2:[address] [facility] REPOSITORY TYPE CODE TESTS RESULT OUT OF RANGE REFERENCE UNITS LAB L3400.4300 21-39 mg/dL Normal C1 EST 22 INH 4648 Result Comment: Performed at: - [facility] [id number] Hotel Front Desk Clerk: Gina Brooks MD, Phone: [phone] Performed By: #### L3400.4300, L3400.4350 #### [facility] (refer to report for specific site) refer to report for address and phone number C1 EST INHIBITOR, Collected: 05/23/2018 Status: F Source: [place] FUNCTIONAL 2:[address] [facility] REPOSITORY TYPE CODE TESTS RESULT OUT OF RANGE REFERENCE UNITS LAB L3400.4350 . Normal C1 EST [id number] Result Comment: Result Units: %mean normal Abnormal <41 Equivocal 41 - 67 Normal >67 Performed By: #### L3400.4300, L3400.4350 #### [facility] (refer to report for specific site) refer to report for address and phone number URINALYSIS, COMPLETE Collected: 05/23/2018 Status: F Source: [place] 12:[address] [facility] REPOSITORY Order Comment: Order Date: 05/23/18 How was Urine Obtained? PROBLEM MANAGER TO SPECIFY TYPE CODE TESTS RESULT OUT OF RANGE REFERENCE UNITS LAB L400.3000 Yellow COLOR Normal Yellow LAB L400.3050 Clear Normal CLARITY Clear LAB L400.3200 Normal mg/dl Normal GLUCOSE, UR Normal LAB L400.3300 Negative mg/dL Normal BILIRUBIN URINE Negative LAB L400.3400 Negative mg/dl Normal KETONE UR Negative LAB L400.3465 1.002-1.030 Normal SP.GR. DIPSTX 1.005 LAB L400.3550 5.0 - 8.0 pH UR Normal 7.0 LAB L400.3600 Negative mg/dl PROT Normal DIPSTX Negative LAB L400.3700 Normal mg/dl Normal UROBILI Normal LAB L400.3750 Negative Normal NITRITE UR Negative LAB L400.3780 Negative /ul Normal OCCULT BLOOD-UR Negative LAB L400.3800 Negative /ul LEUK Normal ESTERASE Negative LAB L400.4050 0-5 /hpf WBC 0 Normal SEEN LAB L400.4100 0-5 /hpf 0 Normal RBC-UA SEEN LAB L400.4150 0-5 /hpf SQUAM 0 Normal EPI SEEN LAB L400.4300 None Seen /hpf 0 Normal BACTERIA SEEN LAB L400.4350 <or=2+ /hpf 0 Normal MUCUS, URINE SEEN Performed By: #### L400.0001 #### [facility] [address] [place], [place], [address] CBC W/DIFF, AUTOMATED Collected: 05/23/2018 Status: F Source: [place] 10:[address] [facility] REPOSITORY TYPE CODE TESTS RESULT OUT OF RANGE REFERENCE UNITS LAB L100.1000 4.4-11.0 K/mm3 Normal WBC 6.1 LAB L100.1200 4.6-6.2 M/mm3 Normal RBC 5.22 LAB L100.1300 13.0-16.5 g/dl Normal HGB 15.3 LAB L100.1400 40-54 % Normal HCT 45.4 LAB L100.1500 80-94 fL Normal MCV 87.0 LAB L100.1600 27.0-32.0 pg Normal MCH 29.3 LAB L100.1700 32-36 g/gl Normal MCHC 33.7 LAB L100.1810 11.6-14.6 % Normal RDW CV 12.4 LAB L100.1820 35.1-43.9 fl Normal RDW SD 39.8 LAB L100.1900 150-450 K/mm3 Normal PLT 212 LAB L100.2000 6.2-12.0 fl Normal MPV 10.1 LAB L100.2100 47-70 % Normal NEUT% 65.2 LAB L100.2200 19-41 % Normal LY% 25.5 LAB L100.2300 0-10 % Normal MONO% 7.1 LAB L100.2400 0-5 % Normal EO% 1.8 LAB L100.2500 0-1 % Normal BASO% 0.2 LAB L100.2550 0.0-0.9 % Normal IM GRAN % 0.200 Result Comment: IG% - Immature Granulocytes (promyelocytes, myelocytes and metamyelocytes) > 1% indicates that a LEFT SHIFT is Present. LAB L100.2620 2.0-7.7 X10 3/uL Normal Absolute Neut 4.0 LAB L100.2720 0.83-4.51 X10 3/ul Normal Absolute Lymph 1.55 Performed By: #### L100.0100 #### [facility] [place], [address] COMPREHENSIVE METABOLIC Collected: 05/23/2018 Status: F Source: [facility] 10:[address] [facility] REPOSITORY TYPE CODE TESTS RESULT OUT OF RANGE REFERENCE UNITS LAB L501.0100 74-106 mg/dL Normal GLU 104 Result Comment: Fasting Glucose result from 100 to 125 mg/dL suggests IMPAIRED HOMEOSTASIS per A.D.A. criteria. Please note revised GLUCOSE reference range effective 2017. LAB L501.1000 7-18 mg/dL High BUN 20 LAB L501.1100 0.70-1.30 mg/dL Normal CREAT,SERUM 1.13 Result Comment: The validity of the calculated GFR AND GFRAA in patients over 70 years has not been determined. Clinical correlation is essential. LAB L501.1110 >60 mL/min Normal EST GFR 81 Result Comment: Non- GFR Calc LAB L501.1115 >60 mL/min Normal EST GFR - AA 98 Result Comment: GFR Calc LAB L501.1255 ml/min Normal Estimated CRCL 109.77 LAB L501.1300 10-20 RATIO BUN/CRE Normal 17.7 LAB L501.1500 6.4-8. g/dL 2 T PROT Normal 8.0 LAB L501.1800 3.2-5. g/dL 0 ALB Normal 4.2 LAB L501.1950 2.2-4. g/dL 2 GLOB Normal 3.8 LAB L501.2000 0.9-2. RATIO 4 A/G Normal 1.1 LAB L501.2200 8.5-10 mg/dL .1 CA Normal 9.3 LAB L501.4100 15-37 U/L AST Normal 15 LAB L501.4305 45-117 U/L ALK P Normal 50 LAB L501.4405 16-61 U/L ALT Normal 22 LAB L501.4600 0.20-1 mg/dL .00 T BILI Normal 0.40 LAB L501.5300 136-14 mmol/L 5 NA Normal 142 LAB L501.5600 3.5-5. mmol/L 1 K Normal 4.3 LAB L501.5900 98-107 mmol/L CL Normal 107 LAB L501.6100 21.0-3 mmol/L 2.0 CO2 Normal 30.0 LAB L501.6200 5-15 GAP Normal 5 Performed By: #### L500.4050, L501.2450 #### [facility] [address] [place], [address] LIPASE Collected: 05/23/2018 Status: F Source: [place] 10:[address] [facility] REPOSITORY TYPE CODE TESTS RESULT OUT OF RANGE REFERENCE UNITS LAB L501.2450 73-393 U/L Normal LIPASE 104 Performed By: #### L500.4050, L501.2450 #### [facility] [address] [place], [address] ERYTHROCYTE SED RATE Collected: 05/23/2018 Status: F Source: [place] 10:[address] [facility] REPOSITORY TYPE CODE TESTS RESULT OUT OF RANGE REFERENCE UNITS LAB L102.0000 0-15 mm/hr Normal SED RATE < 1 Performed By: #### L101.9900 #### [facility] [address] [place], [place], [address] CRP Collected: 05/23/2018 Status: F Source: [place] 10:[address] [facility] REPOSITORY TYPE CODE TESTS RESULT OUT OF RANGE REFERENCE UNITS LAB L501.6710 0.0-3.0 mg/L Normal < 2.90 C-REACTIVE PROT Result Comment: C-Reactive Protein (CRP) provides useful information for the diagnosis, therapy and monitoring of inflammatory processes and associated diseases. For the evaluation of Relative Risk for Cardiovascular Disease, a High Sensitivity CRP (HSCRP) should be ordered. Performed By: #### L501.6710 #### [facility] [address] [place], [place], [address] ALLERGEN, FOOD PROFILE Collected: 05/23/2018 Status: F Source: [place] 10:[address] [facility] REPOSITORY Order Comment: Has pt arrived? Y TYPE CODE TESTS RESULT OUT OF RANGE REFERENCE UNITS LAB L5500.3002 Class 0 kU/L Normal MILK (COW) <0.10 LAB L5500.3004 Class 0 kU/L Normal WHEAT <0.10 LAB L5500.3008 Class 0 kU/L Normal CORN <0.10 LAB L5500.3013 Class 0 kU/L Normal PEANUT <0.10 LAB L5500.3014 Class 0 kU/L Normal SOYBEAN <0.10 LAB L5500.8100 . Normal RAST COMMENT Comment Result Comment: Levels of Specific IgE Class Description of Class ----- < 0.10 0 Negative 0.10 - 0.31 0/I Equivocal/Low 0.32 - 0.55 I Low 0.56 - 1.40 II Moderate 1.41 - 3.90 III High 3.91 - 19.00 IV Very High 19.01 - 100.00 V Very High >100.00 Very High LAB L5530.0430 Class 0 kU/L Normal CLAM <0.10 LAB L5530.0460 Class 0 kU/L Normal CODFISH <0.10 LAB L5530.0570 Class 0 kU/L Normal EGG,WHITE <0.10 LAB L5530.1430 Class 0 kU/L Normal Scallop <0.10 LAB L5530.1440 Class 0 kU/L Normal Sesame Seed <0.10 Result Comment: Performed at: - [facility] [id number] Hotel Front Desk Clerk: Gina Brooks MD, Phone: [phone] LAB L5530.1450 Class 0 kU/L Normal SHRIMP <0.10 LAB L5530.1650 Class 0 kU/L Normal WALNUT <0.10 Performed By: #### L5500.0410 #### [facility] (refer to report for specific site) refer to report for address and phone number ABDOMEN/PELVIS WITH Observed: 05/23/2018 Status: F Source: [place] CONTRAST 10:[address] [facility] REPOSITORY [facility] Imaging Services [address] [place] [address] Abdomen/Pelvis WITH Contrast MR#: [id number] Acct: [id number] Name: DIMAS DE LUNA Rep #: [id number] : 1990 M 28 From: Javier Clifford MD PCP: Care Physician, No Primary Status: REG ER Study: Abdomen/Pelvis WITH Contrast Date of Exam: 05/23/18 Exam# [id number] Ordering Dr: Mat Boggs MD STUDY: CT ABDOMEN AND PELVIS WITH CONTRAST REASON FOR EXAM: Male, 28 years old. Lower abdominal pain and constipation for 2 days. History of prior bowel obstruction. RADIATION DOSAGE (If Supplied By Facility): CTDIvol = ( 12.82 ) mGy, DLP = ( 670.98 ) mGycm TECHNIQUE: Transaxial images were obtained from the dome of the diaphragm to the symphysis pubis with oral contrast. 100CC ml of Isovue 300 contrast was administered. Sagittal and coronal images were reconstructed. Individualized dose optimization techniques were used for this CT. COMPARISON: Comparison is made with prior study dated November 29, 2016. FINDINGS: The visualized lung bases are unremarkable. The visualized portions of the heart are within normal limits. Normal liver. Normal gallbladder and extrahepatic biliary system. Normal spleen. Normal pancreas. Normal bilateral adrenal glands. Normal right kidney. Normal left kidney. Normal visualized stomach. There are dilated loops of the small intestine with a non-distended colon consistent with a small bowel obstruction. The transition point is in the distal ileum. There is thickening of the terminal ileum. The colon is not well distended with oral contrast. The appendix is visualized and appears normal. Normal abdominal aorta. Normal inferior vena cava. Normal retroperitoneum. Normal urinary bladder. Minimal amount of free fluid is seen in the cul-de-sac. Normal abdominal wall. Normal osseous structures. CT/Abdomen/Pelvis WITH Contrast IMPRESSION: There is evidence of small bowel obstruction with the transition point in the distal ileum. There appears to be thickening of the distal and terminal ileum. Clinical correlation is recommended. Electronically Signed: Javier Clifford MD at 12:52 EST Tel [phone], Service support , CC: No Primary Care Physician; Mat Boggs MD Superintendent Generating Plant: Signed 12 LEAD ELECTROCARDIOGRAM Observed: 12/19/2017 Status: F Source: [place] 3:[address] [facility] REPOSITORY [facility] Cardiovascular Services [address] [place] [address] 12 Lead EKG 12/17/17 0515 MR#: [id number] Acct: [id number] Name: DIMAS DE LUNA Rep #: [id number] : 1990 27 From: Clay Kunz MD Attending Dr: Status: DEP ER Ordering Dr: Criss Roberson MD Date: 12/17/17 Location: ED Sex: M C Admitted: Test Reason : Blood Pressure : / mmHG Vent. Rate : 050 BPM Atrial Rate : 050 BPM P-R Int : 160 ms QRS Dur : 094 ms QT Int : 444 ms P-R-T Axes : -26 088 059 degrees QTc Int : 404 ms Sinus bradycardia with sinus arrhythmia Otherwise normal ECG Confirmed by CLAY KUNZ MD ([id number]), marketing editor KAVITHA JOEL ([id number]) on 12/19/2017 3:13:21 PM Referred By: BRE Confirmed By:CLAY KUNZ MD 12/19/17 1513 Date Clay Kunz MD CC: No Primary Care Physician; Criss Roberson MD Signed URINE DRUG SCREEN Collected: 12/17/2017 Status: F Source: [place] (VISTA) 1:[address] [facility] REPOSITORY TYPE CODE TESTS RESULT OUT OF RANGE REFERENCE UNITS LAB L505.0075 TO BE Normal CONFIRMED Result Comment: CONFIRMATORY TESTING FOR ALL POSITIVE URINE DRUG SCREEN RESULTS WILL ONLY BE SENT OUT UPON PHYSICIAN ORDER. VISTA Urine Drug Screen methods provide only preliminary analytical test results. A more specific alternate chemical method must be used in order to obtain a confirmed analytical result. Gas chromatography/mass spectrometery (GC/MS) is the preferred confirmatory method. Clinical consideration and professional judgement should be applied to any drug of abuse test result, particularly when preliminary positive results are used. URINE TCA TESTING MUST BE ORDERED SEPARATELY. USE TEST MNEMONIC: [facility] LAB L505.5005 VISTA UDS PH 6 Normal LAB L505.5015 <1000 ng/mL AMPHETAMINES Normal NEGATIVE LAB L505.5025 < 200 ng/mL BARBITIURATES Normal NEGATIVE LAB L505.5035 < 200 ng/mL BENZODIAZIPINE Normal NEGATIVE LAB L505.5045 < 300 ng/mL COCAINE Normal NEGATIVE LAB L505.5055 < 500 ng/mL ECSTACY Normal NEGATIVE LAB L505.5065 < 300 ng/mL METHADONE Normal NEGATIVE LAB L505.5075 < 300 ng/mL OPIATES Normal NEGATIVE LAB L505.5085 < 25 ng/mL PCP Normal NEGATIVE LAB L505.5095 < 50 High ng/mL THC POSITIVE Performed By: #### L505.5000 #### [facility] [address] [facility] [place], [address] EMERGENCY DEPARTMENT Observed: 12/16/2017 Status: F Source: [place] SUMMARY 11:[address] [facility] REPOSITORY [facility] Medical Records Department [address] [place] [id number] Emergency Department Summary 12/16/17 2335 MR#: [id number] Acct: [id number] Name: DIMAS DE LUNA Rep #: [id number] : 1990 27 From: Mat Boggs MD PCP: Armando Ro DO Status: PRE ER - ER Visit Summary Date of Service: 12/16/17 Chief Complaint: Suicidal ideation History of Present Illness: The patient is a 27 M who presents with suicidal ideation by police. The patient has a 2-year-old son with his ex-girlfriend. He broke up with his ex-girlfriend, and she will not let him see his son. This has been going on for almost 2 years. He reports increasing thoughts of suicide. He has a depressed mood. He thought that he would cut his wrists. He shared this on social media, and a friend called police. Police did identify the knife that the patient plan to use. Patient denies any history of a psychiatric diagnosis or hospitalization. Denies suicide attempts in the past. Denies any medical complaints or medical problems. Physical Examination: Afebrile vital signs unremarkable except for heart rate of 51. He is nontoxic and in no acute distress. Depressed mood and flat affect. Head is atraumatic. Cranial nerves grossly intact. Heart regular. Lungs clear. Moves all extremities. Skin appears normal. Test Results: Laboratory studies, tox screen, alcohol level pending. Emergency Department Course and Treatment: Patient had suicide precautions. Medical clearance was ordered. Results are pending. Dr. Roberson will check results. He has been pink slipped by police. He will need evaluation by crisis and hospitalization. Treatment Plan: As above Disposition: Transfer for psychiatric care pending crisis evaluation Impression: 1. Suicidal ideation. This note was generated with [employer] software. It may contain incorrect words, spelling, and punctuation that were not noted in review of the chart prior to signing ED Disposition - Plan for ED Patient: Chief Complaint: Suicidal Referrals: Armando Ro, DO [Primary Care Provider] - What to do if you have Problems For any increased pain, shortness of breath, bleeding, nausea or vomiting, chest pain, or any unexpected problems, contact your Primary Care Provider. Call [facility] ([phone]) or report to the closest Emergency Room. Call 911 if necessary. 12/16/17 8356 <Electronically signed by Mat Boggs MD> Date Mat Boggs MD Cosigner Signature (If Indicated): Date CC: Armando Ro DO CBC W/DIFF, AUTOMATED Collected: 12/16/2017 Status: F Source: [place] 11:[address] [facility] REPOSITORY TYPE CODE TESTS RESULT OUT OF RANGE REFERENCE UNITS LAB L100.1000 4.4-11.0 K/mm3 Normal WBC 6.9 LAB L100.1200 4.6-6.2 M/mm3 Normal RBC 4.82 LAB L100.1300 13.0-16.5 g/dl Normal HGB 14.4 LAB L100.1400 40-54 % Normal HCT 41.0 LAB L100.1500 80-94 fL Normal MCV 85.1 LAB L100.1600 27.0-32.0 pg Normal MCH 29.9 LAB L100.1700 32-36 g/gl Normal MCHC 35.1 LAB L100.1810 11.6-14.6 % Normal RDW CV 12.2 LAB L100.1820 35.1-43.9 fl Normal RDW SD 37.4 LAB L100.1900 150-450 K/mm3 Normal PLT 205 LAB L100.2000 6.2-12.0 fl Normal MPV 11.0 LAB L100.2100 47-70 % Normal NEUT% 53.8 LAB L100.2200 19-41 % Normal LY% 35.8 LAB L100.2300 0-10 % Normal MONO% 8.4 LAB L100.2400 0-5 % Normal EO% 1.6 LAB L100.2500 0-1 % Normal BASO% 0.3 LAB L100.2550 0.0-0.9 % Normal IM GRAN % 0.100 Result Comment: IG% - Immature Granulocytes (promyelocytes, myelocytes and metamyelocytes) > 1% indicates that a LEFT SHIFT is Present. LAB L100.2620 2.0-7.7 X10 3/uL Normal Absolute Neut 3.7 LAB L100.2720 0.83-4.51 X10 3/ul Normal Absolute Lymph 2.47 Performed By: #### L100.0100 #### [facility] [address] [place], [address] ALCOHOL, BLOOD Collected: 12/16/2017 Status: F Source: [place] ([facility])-SERUM 11:[address] [facility] REPOSITORY TYPE CODE TESTS RESULT OUT OF RANGE REFERENCE UNITS LAB L501.9100 mg/dL Normal SERUM < 3.0 ETOH Result Comment: The serum:whole blood ethanol ratio is approximately 1.14 and varies slightly with hematocrit. Medical Alcohol reference interval and critical value in non-tolerant individuals; 50 - 100 Impairment 100 Intoxication 100 - 250 Severe Poisoning 250 - 400 Deep/possible fatal coma Performed By: #### L501.9100 #### [facility] [address] [place], [address] LIVER PROFILE Collected: 12/16/2017 Status: F Source: [place] 11:[address] [facility] REPOSITORY TYPE CODE TESTS RESULT OUT OF RANGE REFERENCE UNITS LAB L501.1500 6.4-8.2 g/dL Normal T PROT 8.1 LAB L501.1800 3.2-5.0 g/dL Normal ALB 4.6 LAB L501.1950 2.2-4.2 g/dL Normal GLOB 3.5 LAB L501.4100 15-37 U/L Normal AST 22 LAB L501.4305 45-117 U/L Normal ALK P 48 LAB L501.4405 16-61 U/L Normal ALT 24 LAB L501.4600 0.20-1.00 mg/dL Normal T BILI 0.70 LAB L501.4700 0.00-0.30 mg/dL Normal D BILI 0.24 Performed By: #### L500.3400 #### [facility] [address] [place], [address] BASIC METABOLIC Collected: 12/16/2017 Status: F Source: [place] PROFILE ([facility]) 11:[address] [facility] REPOSITORY TYPE CODE TESTS RESULT OUT OF RANGE REFERENCE UNITS LAB L501.0100 74-106 mg/dL Normal GLU 93 Result Comment: Please note revised GLUCOSE reference range effective 2017. LAB L501.1000 7-18 mg/dL Normal BUN 14 LAB L501.1100 0.70-1.30 mg/dL Normal CREAT,SERUM 1.17 Result Comment: The validity of the calculated GFR AND GFRAA in patients over 70 years has not been determined. Clinical correlation is essential. LAB L501.1110 >60 mL/min Normal EST GFR 78 Result Comment: Non- GFR Calc LAB L501.1115 >60 mL/min Normal EST GFR - AA 94 Result Comment: GFR Calc LAB L501.1255 ml/min Normal Estimated CRCL 116.55 LAB L501.1300 10-20 RATIO BUN/CRE Normal 12.0 LAB L501.2200 8.5-10 mg/dL .1 CA Normal 9.4 LAB L501.5300 136-14 mmol/L 5 NA Normal 142 LAB L501.5600 3.5-5. mmol/L 1 K Normal 3.8 LAB L501.5900 98-107 mmol/L CL Normal 106 LAB L501.6100 21.0-3 mmol/L 2.0 CO2 Normal 29.0 LAB L501.6200 5-15 GAP Normal 7 Performed By: #### L500.2500 #### [facility] [address] [place], [place], [address] URINE DRUG SCREEN Collected: 07/25/2017 Status: F Source: [place] ([facility] [employer]) 10:[address] [facility] REPOSITORY Order Comment: List of Drugs Taken or Suspected? UNKNOWN TYPE CODE TESTS RESULT OUT OF RANGE REFERENCE UNITS LAB L505.0075 TO BE Normal CONFIRMED Result Comment: CONFIRMATORY TESTING FOR ALL POSITIVE URINE DRUG SCREEN RESULTS WILL ONLY BE SENT OUT UPON PHYSICIAN ORDER. VISTA Urine Drug Screen methods provide only preliminary analytical test results. A more specific alternate chemical method must be used in order to obtain a confirmed analytical result. Gas chromatography/mass spectrometery (GC/MS) is the preferred confirmatory method. Clinical consideration and professional judgement should be applied to any drug of abuse test result, particularly when preliminary positive results are used. URINE TCA TESTING MUST BE ORDERED SEPARATELY. USE TEST MNEMONIC: [facility] LAB L505.5005 VISTA UDS PH 6 Normal LAB L505.5015 <1000 ng/mL AMPHETAMINES Normal NEGATIVE LAB L505.5025 < 200 ng/mL BARBITIURATES Normal NEGATIVE LAB L505.5035 < 200 ng/mL BENZODIAZIPINE Normal NEGATIVE LAB L505.5045 < 300 ng/mL COCAINE Normal NEGATIVE LAB L505.5055 < 500 ng/mL ECSTACY Normal NEGATIVE LAB L505.5065 < 300 ng/mL METHADONE Normal NEGATIVE LAB L505.5075 < 300 ng/mL OPIATES Normal NEGATIVE LAB L505.5085 < 25 ng/mL PCP Normal NEGATIVE LAB L505.5095 < 50 ng/mL THC Normal NEGATIVE Performed By: #### L505.5000 #### [facility] [address] [place], [place], [address] URINE DRUG SCREEN Collected: 07/14/2017 Status: F Source: [place] ([facility]) 12:[address] [facility] REPOSITORY Order Comment: Comments: PRE-EMPLOYMENT UDS List of Drugs Taken or Suspected? UNKNOWN TYPE CODE TESTS RESULT OUT OF RANGE REFERENCE UNITS LAB L505.0075 TO BE Normal CONFIRMED Result Comment: CONFIRMATORY TESTING FOR ALL POSITIVE URINE DRUG SCREEN RESULTS WILL ONLY BE SENT OUT UPON PHYSICIAN ORDER. VISTA Urine Drug Screen methods provide only preliminary analytical test results. A more specific alternate chemical method must be used in order to obtain a confirmed analytical result. Gas chromatography/mass spectrometery (GC/MS) is the preferred confirmatory method. Clinical consideration and professional judgement should be applied to any drug of abuse test result, particularly when preliminary positive results are used. URINE TCA TESTING MUST BE ORDERED SEPARATELY. USE TEST MNEMONIC: [facility] LAB L505.5005 VISTA UDS PH 6 Normal LAB L505.5015 <1000 ng/mL AMPHETAMINES Normal NEGATIVE LAB L505.5025 < 200 ng/mL BARBITIURATES Normal NEGATIVE LAB L505.5035 < 200 ng/mL BENZODIAZIPINE Normal NEGATIVE LAB L505.5045 < 300 ng/mL COCAINE Normal NEGATIVE LAB L505.5055 < 500 ng/mL ECSTACY Normal NEGATIVE LAB L505.5065 < 300 ng/mL METHADONE Normal NEGATIVE LAB L505.5075 < 300 ng/mL OPIATES Normal NEGATIVE LAB L505.5085 < 25 ng/mL PCP Normal NEGATIVE LAB L505.5095 < 50 High ng/mL THC POSITIVE Performed By: #### L505.5000 #### [facility] [place], [address] ALLERGIES ALLERGIES DATE TYPE / CODE NAME / CODE REACTION SEVERITY SOURCE 05/23/2018 Drug Fish Containing Itching Unknown [place] Allergy/416 Products/[id number] [facility] [id number]([place] [address](RXNORM) [facility] ED CT) Repository 12/22/2006 Environ/420 POISON MARJ [facility] [id number]([facility] ED CT) Repository ENCOUNTERS ENCOUNTERS ADMIT/DISCHARGE ACCOUNT ADMITTING ENCOUNTER LOCATION SOURCE NUMBER CLASS 05/25/2018/05/25/20 [id number] INGRID WOLFF [address] Repository 05/23/2018/05/24/20 [id number] Sementi, Inpatient [place] Jolie Daniel Encounter [facility] ing:NO8Ktcj: Repository [id number]: 1 05/23/2018 [id number] [place]i, Ambulatory BMS[facility]:Luis Daniel [facility] Repository 05/23/2018 [id number] [place], Ambulatory BMSBuilding:Luis Daniel [facility] Repository 12/16/2017/12/18/19 [id number] Emergency [address] ing:ED Repository 07/25/2017 [id number] Ambulatory [facility] ing:LAB.FUTUR Repository E 07/14/2017 [id number] Ambulatory [facility] ing:BFHLAB Repository PAYERS PAYERS ENCOUNTER GUARANTOR PAYER SUBSCRIBER SOURCE 05/23/2018 DIMAS Mosher Primary NOT GIVENUNK [place] [id number] Insurance:SELF PAY [address], [place] Number: Effective Repository [id number]: (330) Date:2018-05-23 [phone] (HP) 05/23/2018 DIMAS Mosher Primary NOT GIVENUNK [place] [id number] Insurance:SELF PAY [address] Number: Effective Repository [phone]: ([phone]) Date:2018-05-23 [phone] (HP) 05/23/2018 DIMAS Mosher Primary NOT GIVENUNK [place] [id number] Insurance:SELF PAY [address], [place] Number: Effective Repository [id number]: (330) Date:2018-05-23 [phone] (HP) 12/16/2017 DIMAS Mosher Primary NOT GIVENUNK [place] [id number] Insurance:SELF PAY [address], [place] Number: Effective Repository [phone]: (330) Date:2017-12-16 [phone] (HP) 07/25/2017 DIMAS Mosher Primary NOT GIVENUNK [place] [id number] Insurance:SELF PAY [address], [place] Number: Effective Repository [phone]: (330) Date:2017-07-15 [phone] (HP) 07/14/2017 DIMAS Mosher Primary NOT GIVENCELINA DE [id number] Insurance:SELF PAY [address] Number: Effective Repository [id number]: (330) Date:2017-07-14 [phone] ()
== END 2018-05-24 16:02 | disposition home or self-care (01) | DRG 389 ==
LOC: ED 10:08 → MS3 13:53
PROVIDERS: Admitting Provider Internal Medicine; Emergency Provider Emergency Medicine; Visit Provider Internal Medicine
DX: K56.609 Unspecified intestinal obstruction, unspecified as to partial versus complete obstruction (principal); Z68.1 Body mass index [BMI] 19.9 or less, adult; K50.90 Crohn's disease, unspecified, without complications; E86.0 Dehydration; T78.3XXA Angioneurotic edema, initial encounter; Z23 Encounter for immunization; R63.4 Abnormal weight loss
CPT/HCPCS: 36415; 74177; 80053; 81001; 83690; 85025; 85652; 86003; 86140; 86160; 86161; 97802; 99282; J7030; J7120; Q9967; 90686; A4216; J2405

== ENCOUNTER 2019-04-16 19:10 | Emergency (ER) | payer SELFPAY ==
[2019-04-16 19:13] VITALS: BP 134/72; PULSE 84; RESP 16; TEMP 36.4; O2SAT 97; BMI 21.1
--- NOTE | 2019-04-16 20:20 | RAD_ITS ---
HISTORY: Left knee popped while running yesterday. Medial pain. 4 images of the left knee. Findings: Bony alignment is normal. Joint spaces are preserved. Cortices are intact. A tiny knee effusion is present. There is trace lateral tilting to the patella. RAD/Knee 4 or More Views IMPRESSION: Knee effusion with lateral tilting of the patella. at 2055 Reported and signed by: Gerald Zimmerman MD Electronically Signed: Gerald Zimmerman MD at 20:54 EST Tel , Service support ,
--- NOTE | 2019-04-16 22:31 | ED.VISSUMM ---
- ER Visit Summary Date of Service: 04/16/19 Chief Complaint: Left knee pain History of Present Illness: The patient is a 29 M who presents with left knee pain that began yesterday. Patient states he felt a pop while he was running. Patient states the pain is over the medial and posterior aspects of the left knee. Patient states the pain is aching and throbbing. Patient states the pain is worse with bending and walking. Patient does admit to some tingling in the area. Patient denies any weakness. Physical Examination: Vital signs are stable. Patient is afebrile. Patient is in no acute distress. Musculoskeletal exam reveals tenderness over the medial aspect of the left knee. There is no effusion noted. There is no bony crepitance or step-off. Range of motion was limited and flexion and extension secondary to pain. Extensor mechanism is intact. Strength is 5/5 bilaterally. There are no sensory deficits noted. Pedal pulses are equal bilaterally. Test Results: X-rays of the left knee were obtained. There is no acute fracture. Emergency Department Course and Treatment: Patient was advised that this is most likely an injury to the soft tissues such as the cartilage. Patient was instructed to follow-up with his primary care physician in 5 to 7 days. Patient was instructed to take Tylenol or ibuprofen as needed for pain. Patient understood and was agreeable with the plan. All questions were answered. Disposition: Discharge home Impression: Left knee sprain This note was generated with [employer] dictation software. It may contain incorrect words, spelling, and punctuation that were not noted in review of the chart prior to signing ED Disposition - Plan for ED Patient: Disposition: Home or Assisted Living Diagnosis: Left knee sprain Instructions: Knee Sprain Referrals: Care Physician,No Primary [Primary Care Provider] - Beltran Sheehan MD [STAFF PHYSICIAN] - 5-7 Days
[2019-04-16 22:52] VITALS: BP 93/58; PULSE 71; RESP 15; O2SAT 97
== END 2019-04-16 22:53 | disposition home or self-care (01) ==
PROVIDERS: Emergency Provider Emergency Medicine
DX: S83.92XA Sprain of unspecified site of left knee, initial encounter (principal); X58.XXXA Exposure to other specified factors, initial encounter; Y93.02 Activity, running; Y92.89 Other specified places as the place of occurrence of the external cause; Y99.8 Other external cause status
CPT/HCPCS: 73564; 99282

== ENCOUNTER 2019-04-28 21:22 | Emergency (ER) | payer SELFPAY ==
[2019-04-28 21:22] VITALS: BP 113/60; PULSE 82; RESP 18; TEMP 36.7; O2SAT 96; BMI 20.3
--- NOTE | 2019-04-28 22:09 | RAD_ITS ---
HISTORY: INJURY, FELT A POP, MEDIAL PAIN, UNABLE TO BEAR WEIGHT OR STRAIGHTEN EXAM: Left Knee COMPARISON: None FINDINGS: # of images incl. paperwork: 4 The joint spaces are well-maintained. No fracture or subluxation. The patellofemoral joint has a normal appearance. No joint effusion is seen. RAD/Knee 4 or More Views IMPRESSION: Normal left knee. at 2304 Reported and signed by: Gerald Zimmerman MD Electronically Signed: Gerald Zimmerman MD at 23:03 EST Tel , Service support ,
[2019-04-28] MEDS: oxyCODONE 5 MG Tablet PO (22:24)
--- NOTE | 2019-04-28 22:32 | ED.VIS.LOWEX ---
History of Present Illness Chief Complaint: Lower Extremity Injury Informant: Patient Occurred: Today Mechanism/Context: Injury - thinks twisted again Onset: Today Context: Sudden Onset Timing: Continuous Quality of Pain: Aching Location: medial left knee Current Severity: Moderate Maximum Severity: Severe Worsened by: moving at all Relieved by: remaining still Associated Symptoms: Loss of Funtion. Negative for: Parasthesia, Weakness Narrative: Patient states he sprained his knee about 2 weeks ago and was seen here with negative x-rays, he has been having issues but able to walk on it ever since, tonight he stepped and thinks he might of twisted it again, felt a pop, and severe pain not able to put any weight on it since. Most of the pain is at the medial aspect of the knee. He is unable to extend it. 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 Denies: Neck pain, Back pain Skin: Denies: Abrasions, Wounds Neurological: Denies: Headache, Weakness, Numbness Physical Exam Vital Signs/Narrative: Vital Signs Temp Pulse Resp BP Pulse Ox 04/28/19 21:22 98.1 F 82 18 113/60 96 Inital Vital Signs reviewed: Yes - Extremity Exam Left Knee: Limited ROM - very; in flexion w/ foot on bed, not able to move at all due to severe pain, - - tender throughout left knee medial joint line and distal femur; no patella, tibial tuberosity, or lateral knee tenderness. +effusion.. Negative for: Deformity General: Well nourished, Well developed Head: Normocephalic, Atraumatic Skin: Normal color, No rash, No Trauma Neurological: Alert, Oriented x3, Cranial nerves II-XII grossly intact, Normal Strength, Normal Sensation Psychological: Normal affect, Normal Mood Diagnostic/Tx/Re-eval - Medical Decision Making On my interpretation, 4 view x-ray series of the left knee shows no acute fracture or dislocation. Patient is unable to straighten the knee out, therefore I am unable to assess the integrity of the MCL/LCL. His pain suggests as a worse case scenario, he could have an MCL injury and/or medial meniscus. His ACL and PCL seem to be very tight and without significant pain on stressing, although it is a little uncomfortable stressing his ACL. Therefore given this injury I will place him in a knee immobilizer, give him a prescription for analgesics, which were started here, he is stable and will follow up with orthopedics as an outpatient. ED Disposition - Plan for ED Patient: Disposition: Home or Assisted Living Diagnosis: MCL sprain of left knee Instructions: Knee Sprain, Knee Immobilizer Prescriptions: Hydrocodone Bitart/Apap 5-325 [[place] 5MG-325MG] 1 tablet PO Q4H PRN PRN 2 Days #10 tablet PRN Reason: Pain Transmission Status: Received by YOLANDE CONTE-[address] [facility] Referrals: Emeterio Keyes MD [STAFF PHYSICIAN] - 3-5 Days
[2019-04-28 22:52] VITALS: BP 113/60; PULSE 82; RESP 16; O2SAT 96
== END 2019-04-28 23:41 | disposition home or self-care (01) ==
PROVIDERS: Emergency Provider Emergency Medicine
DX: S83.412A Sprain of medial collateral ligament of left knee, initial encounter (principal); X50.1XXA Overexertion from prolonged static or awkward postures, initial encounter; Y93.01 Activity, walking, marching and hiking; Y92.89 Other specified places as the place of occurrence of the external cause; Y99.8 Other external cause status
CPT/HCPCS: 73564; 99283

== ENCOUNTER 2019-07-09 10:08 | Emergency (ER) | payer MEDICAID, SELFPAY ==
[2019-07-09 10:09] VITALS: BP 127/60; PULSE 79; RESP 17; TEMP 36.6; O2SAT 100; BMI 17.8
--- NOTE | 2019-07-09 10:28 | CT_ITS ---
STUDY: CT ABDOMEN AND PELVIS WITH CONTRAST REASON FOR EXAM: Male, 29 years old. ABD PAIN, CROHN''S, ULCERATIVE COLITIS, INCREASED PAIN X 3DAYS RADIATION DOSAGE (If Supplied By Facility): CTDIvol = ( 8.64 ) mGy, DLP = ( 371.55 ) mGycm TECHNIQUE: Transaxial images were obtained from the dome of the diaphragm to the symphysis pubis with oral contrast. Oral and amp;amp; IV Gastrografin and amp;amp; 100mL Isovue-300 was administered. Sagittal and coronal images were reconstructed. Individualized dose optimization techniques were used for this CT. COMPARISON: Comparison is made with prior study dated May 23, 2018. FINDINGS: The visualized lung bases are unremarkable. The visualized portions of the heart are within normal limits. Normal liver. Normal gallbladder and extrahepatic biliary system. Normal spleen. Normal pancreas. Normal bilateral adrenal glands. Normal right kidney. Normal left kidney. Normal visualized stomach. Normal small intestine. Normal colon. The appendix is visualized and appears normal. Normal abdominal aorta. Normal inferior vena cava. Normal retroperitoneum. Diffuse bladder wall thickening. Normal abdominal wall. Normal osseous structures. CT/Abdomen/Pelvis WITH Contrast IMPRESSION: Diffuse bladder wall thickening. Electronically Signed: Javier Clifford, at 12:29 EST , Service support ,
--- NOTE | 2019-07-09 10:29 | ED.VIS.GEN ---
History of Present Illness Chief Complaint: Abd Pain Informant: Patient Narrative: Patient states for the past 3 days he has had a constant knot-like sensation in his abdomen. He has not been able to have a bowel movement. He had vomiting this morning. 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 He states he had a colonoscopy. He also had an admission for small bowel obstruction due to swelling at the terminal ileum. He has not followed with gastroenterology and does not take any medications. No fevers. He denies passing gas. He does feel bloated. This morning's emesis consisted of clear to yellow water but no undigested food has been able to eat fairly normal. Patient denies any urinary symptoms. Past Medical History - Allergies and Home Meds Allergies/Adverse Reactions: Allergies Fish Containing Products Allergy (Verified 07/09/19 10:09) Itching peanut Allergy (Verified 07/09/19 10:09) Anaphylaxis Primary Care Physician: Care Physician,No Primary [Primary Care Provider] - Surgical History: no surgical history Smoking Status: Never smoker - Family History Maternal Family History: Reports: Cancer - Breast cancer Review of Systems General: Denies: Chills, Fever, Sweats Eyes: Denies: Visual changes - bilaterally, Diplopia ENT: Denies: Rhinorrhea, Sore throat Cardiovascular: Denies: Chest pain, Palpitations Respiratory: Denies: Dyspnea, Cough, Dyspnea on exertion Gastrointestinal: Reports: Abdominal pain, Nausea, Vomiting, Constipation. Denies: Diarrhea, Melena, Hematochezia Genitourinary: Denies: Dysuria, Hematuria, Frequency Musculoskeletal: Denies: Back pain, Extremity Pain Skin: Denies: Rash, Wounds Neurological: Denies: Headache, Weakness, Numbness Physical Exam Vital Signs/Narrative: Vital Signs Temp Pulse Resp BP Pulse Ox 07/09/19 10:09 97.8 F 79 17 127/60 H 100 Inital Vital Signs reviewed: Yes General: Well nourished, Well developed, No Acute Distress Head: Normocephalic, Atraumatic Eyes: Perrl, EOMI ENT: Moist mucous membranes, No rhinorrhea Neck: Supple, Nontender Cardiovascular: Regular rate, Regular rhythm, No murmurs Respiratory: No distress, CTA bilaterally, Chest nontender Abdomen: Nondistended, Normal bowel sounds, Tender Back: Nontender, Normal Inspection Extremities: Nontender, No edema Skin: Normal color, No rash Neurological: Alert, Oriented x3, Cranial nerves II-XII grossly intact, Normal Strength, Normal Sensation Psychological: Normal affect, Normal Mood Diagnostic/Tx/Re-eval - Medical Decision Making BC, CMP, lipase, and lactic acid were normal. CT of the abdomen pelvis is negative for bowel obstruction or colitis. We will treat the constipation with magnesium citrate return if worsening or concerns ED Disposition - Plan for ED Patient: Disposition: Home or Assisted Living Diagnosis: Abdominal pain, Constipation Instructions: Treating Constipation Prescriptions: Magnesium Citrate [Citrate Of Magnesia] 300 ml PO X1 PRN #3 bottle PRN Reason: Constipation Transmission Status: Pending to [facility] Referrals: Melecio Cifuentes MD [NON-STAFF] - (call to arrange follow up with a pasteuriser operator)
[2019-07-09 10:47] LABS: Absolute Lymphocyte Count 1.78 X10^3/uL (0.83-4.51); Absolute Neutrophil Count 2.2 X10^3/uL (2.0-7.7); Basophil# 0.02 X10^3/uL; Basophil% 0.5 % (0-1); Eosinophils% 2.3 % (0-5); Hematocrit 42.3 % (40-54); Hemoglobin 14.2 g/dL (13.0-16.5); Lymphocyte # 1.78 X10^3/ul (4.0); Lymphocyte % 40.7 % (19-41); Mean Corp Hgb Conc 33.6 g/dL (32-36); Mean Corpuscular Hgb 29.2 pg (27.0-32.0); Mean Platelet Vol. 9.9 fl (6.2-12.0); Monocyte# 0.26 X10^3/uL; Monocyte% 5.9 % (0-10); NRBC Flagged by Analyzer 0 % (0-5); Neutrophil % 50.4 % (47-70); Platelet Count 186 K/mm3 (150-450); RBC Distribution Width SD 38.4 fl (35.1-43.9); Red Blood Count 4.86 M/mm3 (4.6-6.2); White Blood Count 4.4 K/mm3 (4.4-11.0)
[2019-07-09] MEDS: Morphine 4 MG/ML Syringe IV (10:58)
[2019-07-09] MEDS: Ondansetron 4 MG/2 ML Vial IV (10:58)
[2019-07-09] MEDS: 0.9% Normal Saline 1,000 ML 1000 ML IV (10:58)
[2019-07-09 11:03] LABS: ALB/GLOB Ratio 1.2 RATIO (0.9-2.4); AST(SGOT) 17 U/L (15-37); Alanine Aminotransfer ALT/SGPT 25 U/L (16-61); Alkaline Phosphatase 43 U/L (45-117); Anion Gap 2 (5-15); BUN 11 mg/dL (7-18); BUN/Creat Ratio 10.6 RATIO (10-20); Calcium,Total 9.3 mg/dL (8.5-10.1); Chloride 107 mmol/L (98-107); Creatinine, Serum 1.04 mg/dL (0.70-1.30); EST Glomerular Filtration Rate 88 mL/min (>60); Est Glom Filt Rate - Afr Amer 107 mL/min (>60); Estimated Creatinine Clearance 106.99 ml/min; Globulin 3.4 g/dL (2.2-4.2); Glucose 92 mg/dL (74-106); Lipase 89 U/L (73-393); Potassium 4.4 mmol/L (3.5-5.1); Protein, Total 7.4 g/dL (6.4-8.2); Sodium Level 140 mmol/L (136-145)
[2019-07-09 11:15] LABS: Lactic Acid 0.8 mmol/L (0.4-1.9)
[2019-07-09 12:16] VITALS: BP 124/62; PULSE 80; RESP 16; O2SAT 98
--- NOTE | 2019-07-09 13:31 | ED.RN ---
pt aware unable to drive after narcotic medication. hro aware pt waiting in wr
== END 2019-07-09 13:31 | disposition home or self-care (01) ==
PROVIDERS: Emergency Provider Emergency Medicine
DX: K59.00 Constipation, unspecified (principal); R10.9 Unspecified abdominal pain
CPT/HCPCS: 74177; 80053; 83605; 83690; 85025; 96361; 96374; 96375; 99283; J7030; Q9967; J2405

== ENCOUNTER 2019-08-09 23:26 | Emergency (ER) | payer OTHER, MEDICAID, SELFPAY ==
[2019-08-09 23:27] VITALS: BP 124/71; PULSE 58; RESP 16; TEMP 36.7; O2SAT 98; BMI 20.3
--- NOTE | 2019-08-09 23:45 | ED.VISSUMM ---
- ER Visit Summary Date of Service: 08/09/19 Chief Complaint: Rash History of Present Illness: The patient is a 29 M with a rash after exposure to a chemical at work. This is a cross-linked polyethylene. He has a red itchy rash to his left arm, left flank, and bilateral feet. No fever or systemic symptoms. No respiratory, GI, or nervous system symptoms. Physical Examination: Vitals normal. Afebrile. Alert and oriented. Patient has an erythematous and excoriated rash to his left arm near the axilla, left flank at the level of his axilla and bilateral feet. Otherwise skin normal. Mucous membranes normal. Eyes normal. Test Results: None indicated Emergency Department Course and Treatment: Patient has a contact dermatitis. Wash the area. No other decontamination or antidotes required. He was treated with prednisone and Benadryl. Follow-up with corporate care. Treatment Plan: As above Disposition: Discharge Impression: Contact dermatitis This note was generated with [employer] dictation software. It may contain incorrect words, spelling, and punctuation that were not noted in review of the chart prior to signing ED Disposition - Plan for ED Patient: Referrals: Care Physician,No Primary [Primary Care Provider] -
--- NOTE | 2019-08-09 23:47 | ED.DEP ---
ED Disposition - Plan for ED Patient: Instructions: Contact Dermatitis Prescriptions: DiphenhydrAMINE [Benadryl] 25 mg PO TID #15 cap Prescription Printed predniSONE tablet 60 mg PO DAILY #15 tab Prescription Printed Referrals: Corporate,[facility] [GROUP OF PHYSICIANS] -
[2019-08-09] MEDS: DiphenhydrAMINE 25 MG Capsule PO (23:49)
[2019-08-09] MEDS: predniSONE 20 MG Tablet 60 MG PO (23:49)
--- NOTE | 2019-08-09 23:52 | ED.RN ---
PER PT HE IS THROUGH AN TEMP SERVICE AND HE DOES NOT BELIEVE DRUG SCREEN IS REQUIRED.
[2019-08-09 23:58] VITALS: BP 124/71; PULSE 58; RESP 16; O2SAT 98
== END 2019-08-09 23:59 | disposition home or self-care (01) ==
LOC: ED 23:50
PROVIDERS: Emergency Provider Emergency Medicine
DX: T49.3X1A Poisoning by emollients, demulcents and protectants, accidental (unintentional), initial encounter (principal); L25.3 Unspecified contact dermatitis due to other chemical products
CPT/HCPCS: 99283

== ENCOUNTER 2019-12-11 10:57 | Emergency (ER) | payer SELFPAY ==
[2019-08-22 10:27] VITALS: BMI 20.3
[2019-12-11 10:58] VITALS: BP 108/62; PULSE 65; RESP 16; TEMP 36.3; O2SAT 97; BMI 19.5
--- NOTE | 2019-12-11 11:21 | CT_ITS ---
STUDY: CT BRAIN WITHOUT CONTRAST REASON FOR EXAM: Male, 29 years old. HEADACHE/ DIZZY RADIATION DOSAGE (If Supplied By Facility): CTDIvol = ( 44.99 ) mGy, DLP = ( 779.24 ) mGycm TECHNIQUE: Transaxial CT imaging of the brain was performed without administration of intravenous contrast material. Individualized dose optimization techniques were used for this CT. COMPARISON: No relevant priors. FINDINGS: Normal soft tissue structures. Normal calvarium. Normal size ventricles and extra-axial spaces for the patient''s age. Normal white matter tracts of the cerebral hemispheres. Normal basal ganglia and thalami. Normal brainstem. Normal cerebellum. There is no intracranial hemorrhage. There are no findings of an acute ischemic infarction. Normal visualized paranasal sinuses. CT/Brain/Head without Contrast IMPRESSION: Normal unenhanced CT scan of the brain. Electronically Signed: Job Hunt MD at 11:47 EDT , Service support ,
[2019-12-11] MEDS: DiphenhydrAMINE 50 MG/ML Syringe 25 MG IV (11:30)
[2019-12-11] MEDS: Ketorolac 30 MG/ML Syringe IV (11:30)
[2019-12-11] MEDS: 0.9% Normal Saline 1,000 ML 999 ML IV (11:31)
[2019-12-11] MEDS: proCHLORPERazine 10 MG/2 ML Vial IV (11:32)
--- NOTE | 2019-12-11 12:07 | ED.DCSUM_ITS ---
- ER Visit Summary Date of Service: 12/11/19 Chief Complaint: Headache History of Present Illness: The patient is a 29 M who presents with a headache that started this morning when he was getting ready for work. Associated with nausea and vomiting. He never had this before. Denies trauma, blood thinners, fever, recent illness. Denies any vision changes, speech changes, facial droop, weakness, numbness. Physical Examination: Afebrile and vital signs unremarkable. Head and neck are atraumatic. HEENT exam unremarkable. Cranial nerves grossly intact. Normal strength and sensation. Normal cerebellar testing. Skin appears normal. Heart regular. Lungs clear. Test Results: CT brain unremarkable. Emergency Department Course and Treatment: This was a new onset severe headache. CT was ordered and unremarkable. I have no further concerns for subarachnoid hemorrhage based on the timing. He does not appear to have meningitis. He was treated with fluids, Benadryl, Compazine, Toradol. On reevaluation, his pain had resolved. He was requesting discharge. Return for any new or worsening issues. Treatment Plan: As above Disposition: Discharge Impression: Headache This note was generated with [employer] dictation software. It may contain incorrect words, spelling, and punctuation that were not noted in review of the chart prior to signing ED Disposition - Plan for ED Patient: Referrals: Care Physician,No Primary [Primary Care Provider] -
--- NOTE | 2019-12-11 12:09 | ED.DEP ---
ED Disposition - Plan for ED Patient: Instructions: ED Headache Unspecified Referrals: Care Physician,No Primary [Primary Care Provider] -
[2019-12-11 12:40] VITALS: BP 111/71; PULSE 71; RESP 16; O2SAT 98
== END 2019-12-11 12:40 | disposition home or self-care (01) ==
PROVIDERS: Emergency Provider Emergency Medicine
DX: R51 Headache (principal)
CPT/HCPCS: 70450; 96361; 96374; 96375; 99283; J7030; A4216

== ENCOUNTER 2020-02-26 15:03 | Emergency (ER) | payer SELFPAY ==
[2020-02-26 15:04] VITALS: BP 133/84; PULSE 92; RESP 18; TEMP 36.4; O2SAT 98; BMI 20.3
--- NOTE | 2020-02-26 15:07 | ED.RN ---
PT DRUG TEST PER BRYAN KANG--- [phone]
--- NOTE | 2020-02-26 15:28 | NURSING ---
1513 CALLED NOW CLINIC, TOLD TO PAGE MELY. MELY WILL BE IN
--- NOTE | 2020-02-26 15:39 | RAD_ITS ---
STUDY: X-RAY - LEFT FOOT CLINICAL: Male, 29 years old. LEFT FOOT INJURY TODAY, SAID FOOT WAS and quot; PINCHED IN A DOOR and quot;. PAIN IS FROM BASE OF METATARSALS TO THE TOES. TECHNIQUE: 3 view(s) of the foot. COMPARISON: None. FINDINGS: Normal talus, calcaneus, and tarsal bones. Normal visualized subtalar, talonavicular, calcaneocuboid, tarsal and tarsometatarsal articulations. Normal metatarsi. Normal metatarsophalangeal joint of the great toe. Normal tibial and fibular sesamoid bones. Normal interphalangeal joint of the great toe. Normal phalanges of the great toe. Normal second through fifth metatarsophalangeal joints. Normal interphalangeal joints and phalanges of the lesser toes. The soft tissue structures are unremarkable. RAD/Foot min 3 Views IMPRESSION: Normal x-ray examination of the foot. Electronically Signed: Job Hunt MD at 16:46 EDT , Service support ,
--- NOTE | 2020-02-26 15:51 | ED.VIS.GEN ---
History of Present Illness Chief Complaint: Lower Extremity Injury Informant: Patient Onset: Today Narrative: Patient was at work and they were moving metal storage containers. Mom was on a forklift when it shifted and began to swing towards him. Metal container head area that has some bolts on it. This hit his foot pushed his foot away given the weight of the object. This resulted in a crush-like injury to the left foot. He was wearing tennis shoes - Past Medical History (1) SBO (small bowel obstruction) Status: Chronic (2) Colitis Status: Chronic (3) Allergic angioedema Status: Suspected Past Medical History - Allergies and Home Meds Allergies/Adverse Reactions: Allergies Fish Containing Products Allergy (Verified 02/26/20 15:08) Itching peanut Allergy (Verified 02/26/20 15:08) Anaphylaxis Primary Care Physician: Clinic,NOW [NON-STAFF] - As soon as possible Prior records reviewed: Yes Surgical History: no surgical history Smoking Status: Never smoker - Family History Maternal Family History: Reports: Cancer - Breast cancer Review of Systems General: Denies: Chills, Fever, Sweats Eyes: Denies: Visual changes - bilaterally, Diplopia ENT: Denies: Rhinorrhea, Sore throat Cardiovascular: Denies: Chest pain, Palpitations Respiratory: Denies: Dyspnea, Cough, Dyspnea on exertion Gastrointestinal: Denies: Abdominal pain, Nausea, Vomiting, Diarrhea, Melena, Hematochezia Genitourinary: Denies: Dysuria, Hematuria, Frequency Musculoskeletal: Reports: Extremity Pain. Denies: Back pain Skin: Denies: Rash, Wounds Neurological: Denies: Headache, Weakness, Numbness Physical Exam Vital Signs/Narrative: Vital Signs Temp Pulse Resp BP Pulse Ox 02/26/20 15:04 97.6 F L 92 18 133/84 H 98 Inital Vital Signs reviewed: Yes General: Well nourished, Well developed, No Acute Distress Head: Normocephalic, Atraumatic Eyes: Perrl, EOMI ENT: Moist mucous membranes, No rhinorrhea Neck: Supple, Nontender Cardiovascular: Regular rate, Regular rhythm, No murmurs Respiratory: No distress, CTA bilaterally, Chest nontender Abdomen: Soft, Nontender, Nondistended, Normal bowel sounds Back: Nontender, Normal Inspection Extremities: Nontender, No edema Skin: Normal color, No rash, Trauma - There is an area on the lateral aspect of the midfoot that shows superficial abrasion there is an area on the medial aspect of the midfoot that shows more of a crush injury of about a half a centimeter with concussed skin. There are no obvious deformities. There is no bleeding. No significant swelling. Neurological: Alert, Oriented x3, Cranial nerves II-XII grossly intact, Normal Strength, Normal Sensation Psychological: Normal affect, Normal Mood Diagnostic/Tx/Re-eval - Medical Decision Making X-rays do not reveal an obvious fracture. This appears to be concussed and crushed skin. This should heal up with local wound care. Patient believes he needs crutches in order to get around for the next day or 2. We will follow-up with Workmen's Comp. ED Disposition - Plan for ED Patient: Disposition: Home or Assisted Living Diagnosis: Crush injury of left foot, Abrasion, left foot, initial encounter Instructions: Crush Injury, Foot/Toe, No Fracture Referrals: Clinic,NOW [NON-STAFF] - As soon as possible
--- NOTE | 2020-02-26 15:59 | ED.RN ---
Pt offered workers comp but refused
--- NOTE | 2020-02-26 16:02 | ED.RN ---
Pt has an abrasion to the inside of L foot
== END 2020-02-26 16:29 | disposition home or self-care (01) ==
PROVIDERS: Emergency Provider Emergency Medicine
DX: S90.812A Abrasion, left foot, initial encounter (principal); W23.1XXA Caught, crushed, jammed, or pinched between stationary objects, initial encounter; Y93.89 Activity, other specified; Y92.89 Other specified places as the place of occurrence of the external cause; Y99.8 Other external cause status
CPT/HCPCS: 73630; 99283

== ENCOUNTER 2020-11-19 20:32 | Emergency (ER) | payer OTHER, SELFPAY ==
[2020-11-19 20:33] VITALS: BP 124/68; PULSE 69; RESP 18; TEMP 37.1; O2SAT 93; BMI 21.4
--- NOTE | 2020-11-19 20:40 | EDS_ITS ---
HPI History of Present Illness Chief Complaint: Lower Extremity Injury Informant: patient Occured/Mechanism Mechanism/Context: Yes other see comment below Comment: Patient states he injured his knee approxi-1 year ago and had a m eniscus and MCL injury. Onset/Context/Timing Context: Sudden Onset Timing: Continuous and Intermittent (Patient reports when he walks he feels a popping sensation.) Quality of Pain: Dull and Aching Current Severity: Mild Maximum Severity: Moderate Worsened by: Movement and walking Relieved by: Better with rest Associated Symptoms Associated Symptoms: Negative for Parasthesia, Weakness and Loss of Funtion Narrative Narrative: Is a 30-year-old male who presents with left knee pain. He states he injured it 1 year ago and had a meniscus and MCL injury. He did not follow-up with orthopedics. He states he reinjured working on his car. Not certain of the mechanism. Pain is worse with movement and especially walking. He also complains of a popping sensation as if something is moving in and out. There is been no recent injury. There is no history of gout or pseudogout. Prior similar symptoms: Yes Recent Illness/Hospitalization: No PFSH PFS Medical History Asthma Home Medications naproxen 500 mg PO BID #14 tab 11/19/20 [Rx Last Taken Unknown] Allergy/AdvReac Type Severity Reaction Status Date / Time Fish Containing Products Allergy Itching Verified 11/19/20 20:34 peanut Allergy Anaphylaxis Verified 11/19/20 20:34 no surgical history Social History (Updated 11/19/20 @ 20:[address] Timi Persaud MD) Smoking Status: Never smoker alcohol intake: never substance use type: marijuana ROS ROS ED Constitutional Constitutional ED: Denies chills, fever(s), subjective, sweats or weight loss Genitourinary Genitourinary ED: Denies dysuria, hematuria or urinary frequency Musculoskeletal Musculoskeletal: Reports other Details: Left knee pain ; Denies arthralgias, back pain, myalgias or neck pain Integumentary Denies Abrasions or rash Neurologic Neurologic: Denies paresthesias or weakness Hematologic/Lymphatic Hematologic/Lymphatic: Denies easy bleeding or easy bruising EXAM Physical Exam Const Vital Signs: 11/19/20 20:33 Temperature 98.7 F Temperature Source Temporal Pulse Rate 69 Respiratory Rate 18 Blood Pressure 124/68 H Blood Pressure Mean 86 Pulse Ox 93 Oxygen Delivery Method Room Air Positive well nourished and well developed General Appearance ED: well developed HEENT normocephalic and atraumatic Eyes PERRL Eyes Narrative: Extract muscle intact. Sclerae anicteric. Neck full ROM Resp normal respiratory effort Cardio regular rate and regular rhythm Extremity full ROM; Negative for normal to inspection Extremity Narrative: Left knee is swollen compared to the right. The patella is not ballotable. There is no obvious effusion. Patient reports medial joint line tenderness. He is able to extend 270 degrees and flex to 60 degrees. There is no laxity with varus valgus stress testing. Anjelica's test was negative. He reported pain. Modified Bernie's test was negative. There is no palpable mass or tenderness in the popliteal fossa. PT and DP pulse are palpable. General Extremety ED: Yes weight-bearing difficulty; Negative for cyanosis or edema General Extremity: weight-bearing difficulty; Negative for cyanosis or edema Neuro oriented x3 and CN's II-XII intact bilaterally Sensorium / Orientation: alert Motor Exam: strength 5/5 throughout Psych mental status grossly normal Skin no wounds Lesions: no lesions Rashes: no rashes MDM MDM MDM Narrative Medical decision making narrative: Patient was medicated with NSAID and opiate analgesia and x-ray was obtained. Suspect this is exacerbation of prior injury. May also represent osteoarthritis due to noncompliance with follow-up. Radiography X-Ray: - (4 view x-ray of the left knee is negative. There is no degenerative changes, fracture, effusion etc. X-ray interpreted by me at 07/14/2004.) Discharge Plan Triage Chief Complaint: Lower Extremity Injury ED Provider: Timi Persaud Dx/Rx/DC Orders Clinical Impression: Acute pain of left knee Instructions: ED Knee Pain of Uncertain Cause Prescriptions: New naproxen 500 MG tablet 500 mg PO BID Qty: 14 RF: 0 Primary Care Provider: Care Physician,No Primary Referrals: Coco Villafuerte [NON-STAFF] - 1 Week if not improving Care Physician,No Primary [Primary Care Provider] - Disposition Disposition: Home, self care
[2020-11-19] MEDS: HYDROcodone Bitartrate/Apap 5/325 Tablet PO (20:42)
[2020-11-19] MEDS: Naproxen 500 MG Tablet PO (20:42)
--- NOTE | 2020-11-19 20:51 | RAD_ITS ---
HISTORY: Trauma, injury/Pain EXAMINATION/TECHNIQUE: XR Knee Complete 4 Views or More: COMPARISON: 04/28/19 FINDINGS: BONES/JOINTS: No acute fracture or dislocation. Preservation of the joint spaces. No sclerotic or destructive changes observed. SOFT TISSUES: No soft tissue swelling or gas. No radiopaque foreign body. RAD/Knee 4 or More Views IMPRESSION: No acute bony abnormality. at 2135 Reported and signed by: Caleb Raygoza MD Electronically Signed: Caleb Raygoza MD at 21:34 EDT Tel , Service support ,
== END 2020-11-19 21:32 | disposition home or self-care (01) ==
PROVIDERS: Emergency Provider Emergency Medicine
DX: M25.562 Pain in left knee (principal); J45.909 Unspecified asthma, uncomplicated
CPT/HCPCS: 73564; 99283

== ENCOUNTER 2020-12-06 12:58 | Emergency (ER) | payer OTHER, SELFPAY ==
[2020-12-06 12:58] VITALS: BP 115/79; PULSE 77; RESP 16; TEMP 36.2; O2SAT 96; BMI 19.5
--- NOTE | 2020-12-06 13:11 | RAD_ITS ---
HISTORY: Chest pain. TECHNIQUE: XR Chest 1 View. # of images incl. paperwork: 1. COMPARISON: None. FINDINGS: CARDIOMEDIASTINAL STRUCTURES: Cardiac silhouette not enlarged. Mediastinal contour unremarkable. LUNGS: Radiographically clear. PLEURA: No pleural effusion or pneumothorax. OSSEOUS STRUCTURES: Unremarkable. RAD/Chest 1 View (Portable) IMPRESSION: No radiographic evidence of acute cardiopulmonary disease. at 1336 Reported and signed by: María Macdonald MD Electronically Signed: María Macdonald MD at 13:35 EDT Tel , Service support ,
[2020-12-06 13:14] VITALS: BP 117/65; PULSE 60; RESP 14; O2SAT 97
--- NOTE | 2020-12-06 13:15 | EKG12_ITS ---
Test Reason : REPEAT Blood Pressure : / mmHG Vent. Rate : 046 BPM Atrial Rate : 046 BPM P-R Int : 158 ms QRS Dur : 098 ms QT Int : 436 ms P-R-T Axes : -09 087 062 degrees QTc Int : 381 ms Sinus bradycardia Early repolarization Otherwise normal ECG Confirmed by LEANN DE ANDA, LILIA ([id number]), editor at large ANGELINA WOO ([id number]) on 12/09/2020 8:52:36 AM Referred By: LAMONT Confirmed By:LILIA NORIEGA MD
[2020-12-06 13:21] VITALS: O2SAT 97
--- NOTE | 2020-12-06 13:24 | EKG12_ITS ---
Test Reason : BACK PAIN Blood Pressure : / mmHG Vent. Rate : 063 BPM Atrial Rate : 063 BPM P-R Int : 156 ms QRS Dur : 092 ms QT Int : 380 ms P-R-T Axes : 034 090 056 degrees QTc Int : 388 ms Normal sinus rhythm with sinus arrhythmia Rightward axis Borderline ECG Confirmed by LEANN DE ANDA, LILIA ([id number]), makeup editor ANGELINA WOO ([id number]) on 12/09/2020 8:56:04 AM Referred By: GIACOMO Confirmed By:LILIA NORIEGA MD
--- NOTE | 2020-12-06 13:24 | CT_ITS ---
EXAM: CT CHEST WITH INTRAVENOUS CONTRAST CLINICAL INDICATION: Back pain radiating chest, sudden onset at rest TECHNIQUE: Helically acquired images were obtained of the chest with intravenous contrast. This CT exam was performed using one or more of the following dose reduction techniques: automated exposure control, adjustment of the mA and/or kV according to patient size, and/or use of iterative reconstruction technique. This report was created using [employer] report generation technology. Coronal and sagittal reformatted images were created and reviewed. CONTRAST: IV 100mL Isovue-300 COMPARISON: None. FINDINGS: LUNGS AND PLEURAL SPACES: Unremarkable. No mass. No consolidation or edema. No pleural effusion or thickening. No pneumothorax. HEART: Unremarkable. Heart size is normal. No pericardial effusion. MEDIASTINUM: Unremarkable. No mediastinal or hilar adenopathy. Esophagus is unremarkable. No hiatal hernia. THYROID: Unremarkable. No thyroid lesions. BONES/JOINTS: Unremarkable. No suspicious lytic or blastic abnormality. VASCULATURE: Unremarkable. Thoracic aorta is non-dilated. No thoracic aortic dissection. No obvious central pulmonary embolism although this study was not performed with the pulmonary embolism protocol. CT/Chest WITH Contrast IMPRESSION: Negative CT chest with intravenous contrast. Electronically Signed: Moshe Rand MD (Brooks) at 14:17 EDT , Service support ,
[2020-12-06 13:26] LABS: Absolute Lymphocyte Count 1.95 X10^3/uL (0.83-4.51); Absolute Neutrophil Count 2.6 X10^3/uL (2.0-7.7); Basophil# 0.02 X10^3/uL; Basophil% 0.4 % (0-1); Eosinophil# 0.11 X10^3/uL; Eosinophils% 2.2 % (0-5); Hemoglobin 13.5 g/dL (13.0-16.5); Lymphocyte # 1.95 X10^3/ul (0.83-4.51); Lymphocyte % 38.8 % (19-41); Mean Corp Hgb Conc 33.8 g/dL (32-36); Mean Corpuscular Hgb 29.1 pg (27.0-32.0); Mean Corpuscular Volume 86.2 fL (80-94); Monocyte# 0.32 X10^3/uL; Monocyte% 6.4 % (0-10); NRBC Flagged by Analyzer 0 % (0-5); Neutrophil # 2.62 X10^3/uL (2.7-7.7); Platelet Count 213 K/mm3 (150-450); RBC Distribution Width CV 12.1 % (11.6-14.6); Red Blood Count 4.64 M/mm3 (4.6-6.2)
[2020-12-06] MEDS: Morphine 4 MG/ML Syringe IV (13:26)
[2020-12-06] MEDS: Ondansetron 4 MG/2 ML Vial IV (13:26)
--- NOTE | 2020-12-06 13:35 | EX.ED.DYSGE1 ---
HPI History of Present Illness Chief Complaint: Back Informant: patient Narrative Narrative: Patient is a 30-year-old male who presents to the emergency department for sudden onset subscapular back pain that radiates to the left side of his chest. He has never had this before. He describes the pain as severe. Movement does seem to make it worse as well as breathing. He is not take anything for this. This occurred upon awaking this morning. He denies any injury. He denies any significant shortness of breath. No history of heart attack, DVT/PE. No leg swelling or calf pain. He denies any abdominal pain or nausea/vomiting. He denies any recent illness including any cough, cold, congestion. No fevers or chills. [facility] Medical History Asthma Home Medications NK 12/06/20 [History Last Taken Unknown] Allergy/AdvReac Type Severity Reaction Status Date / Time Fish Containing Products Allergy Itching Verified 11/19/20 20:34 peanut Allergy Anaphylaxis Verified 11/19/20 20:34 Social History Smoking Status: Never smoker alcohol intake: never substance use type: marijuana ROS ROS ED Constitutional Constitutional ED: Denies chills or fever(s) Eyes Eyes: Denies change in vision ENT ENT ED: Denies epistaxis or rhinorrhea Cardiovascular Cardiovascular: Reports chest pain; Denies palpitations Respiratory/Chest Respiratory/Chest: Denies cough, dyspnea or dyspnea on exertion Gastrointestinal Gastrointestinal: Denies abdominal pain, diarrhea, nausea or vomiting Musculoskeletal Musculoskeletal: Reports back pain; Denies neck pain Integumentary Denies rash Neurologic Neurologic: Denies dizziness, headache(s) or weakness EXAM Physical Exam Const Vital Signs: 12/06/20 12:58 12/06/20 13:14 12/06/20 13:21 Temperature 97.1 F L Temperature Source Temporal Pulse Rate 77 60 Respiratory Rate 16 14 Blood Pressure 115/79 117/65 Blood Pressure Mean 91 82 Pulse Ox 96 97 97 Oxygen Delivery Method Room Air Room Air Room Air 12/06/20 14:14 12/06/20 16:00 12/06/20 18:17 Temperature Temperature Source Pulse Rate 49 L 41 L 46 L Respiratory Rate 14 13 18 Blood Pressure 98/61 115/81 H 103/71 Blood Pressure Mean 73 92 Pulse Ox 98 100 98 Oxygen Delivery Method Room Air Positive well nourished and well developed Constitutional Narrative: Patient does appear in distress. Having a hard time breathing due to pain. General Appearance ED: well developed HEENT Reports normocephalic, head/scalp atraumatic and moist mucous membranes Eyes PERRL and EOMs intact bilaterally Neck supple Chest Wall inspection of chest normal Resp Resp Narrative: Patient has painful inspiration. Does appear to have clear lung sounds bilaterally. No wheezing heard. Cardio regular rate, regular rhythm and no murmurs GI normal to inspection, nondistended, normoactive bowel sounds and non-tender Palpation: soft; Negative for guarding or rebound tenderness present Back/Spine no CVA tenderness Extremity normal to inspection General Extremety ED: Negative for edema or tenderness General Extremity: Negative for edema Neuro oriented x3, CN's II-XII intact bilaterally and no sensory deficits noted Sensorium / Orientation: alert Motor Exam: strength 5/5 throughout Psych mental status grossly normal Skin no rashes or lesions noted MDM MDM MDM Narrative Medical decision making narrative: Patient presents to the [facility] department for sudden onset left-sided chest and back pain. Upon arrival to the emergency department satting 96% on room air. He does appear in distress he is having a hard time breathing due to pain. X-ray was performed immediately which did not show any obvious pneumothorax. Patient be taken over to CT scan to evaluate for PE/dissection. EKG does not show any signs of ischemia or arrhythmia. Basic lab work obtained. Is given a dose of morphine and Zofran. Patient's imaging did not reveal any acute findings. No evidence of PE, aortic dissection, pneumonia. His initial troponin is within normal limits and repeat is not significantly elevated. Low concern for ACS. He has a low heart score. He is feeling much better throughout course of ED stay. He is up ambulating around the room without any issues. He is requesting to be discharged at this time. Patient did have some low heart rates but his blood pressure never dropped with this. He is given referral for PCP as he does not currently have one. If he develops any worsening or returning symptoms he needs to come back to the [facility] department to be reevaluated. He understands and is agreeable this plan. Discharged home in stable condition. All questions were answered. Lab Data Labs: Laboratory Results - last 24 hr 12/06/20 12/06/20 12/06/20 13:15 13:15 17:44 WBC 5.0 RBC 4.64 Hgb 13.5 Hct 40.0 MCV 86.2 MCH 29.1 MCHC 33.8 RDW Std Deviation 38.0 RDW Coeff of Roni 12.1 Plt Count 213 MPV 10.0 Immature Gran % (Auto) 0.200 Neut % (Auto) 52.0 Lymph % (Auto) 38.8 Eaton % (Auto) 6.4 Eos % (Auto) 2.2 Baso % (Auto) 0.4 Absolute Neuts (auto) 2.6 Absolute Lymphs (auto) 1.95 Nucleated RBC % 0 Sodium 142 Potassium 3.9 Chloride 106 Carbon Dioxide 33.0 H Anion Gap 3 L BUN 16 Creatinine 1.05 Estim Creat Clear Calc 115.00 Est GFR (MDRD) Af Amer 105 Est GFR (MDRD) Non-Af 87 BUN/Creatinine Ratio 15.2 Glucose 99 Calcium 9.0 Troponin I High Sens 6.8 8.1 Radiography Diagnostic Testing: Radiology Impression Chest X-Ray 12/06/20 13:11 IMPRESSION: No radiographic evidence of acute cardiopulmonary disease. at 1336 Reported and signed by: María Macdonald MD Electronically Signed: María Macdonald MD at 13:35 EDT Tel , Service support , Chest CT 12/06/20 13:24 IMPRESSION: Negative CT chest with intravenous contrast. Electronically Signed: Moshe Rand MD ([place]) at 14:17 EDT , Service support , EKG Initial EKG: Attestation: I personally reviewed and interpreted this EKG as follows: (Rate of 63 bpm and normal sinus rhythm. Normal intervals. Normal axis. Nonspecific repolarization seen diffusely. No significant ST elevations or depressions.) Discharge Plan Triage Chief Complaint: Back ED Provider: Vernon Cooley Dx/Rx/DC Orders Clinical Impression: Back pain Instructions: ED Chest Pain, Uncertain Cause Prescriptions: No Action NK RF: 0 Primary Care Provider: Care Physician,No Primary Referrals: Douglas Timmons III, MD [STAFF PHYSICIAN] - 2 Days Care Physician,No Primary [Primary Care Provider] - Disposition Disposition: Home, Self Care Discharge Date/Time: 12/06/20 18:17
[2020-12-06 13:41] LABS: Anion Gap 3 (5-15); BUN 16 mg/dL (7-18); BUN/Creat Ratio 15.2 RATIO (10-20); Chloride 106 mmol/L (98-107); Creatinine, Serum 1.05 mg/dL (0.70-1.30); EST Glomerular Filtration Rate 87 mL/min (>60); Est Glom Filt Rate - Afr Amer 105 mL/min (>60); Glucose 99 mg/dL (74-106); Potassium 3.9 mmol/L (3.5-5.1); Sodium Level 142 mmol/L (136-145); Troponin-I HS 6.8 pg/mL (3.0-78.5)
[2020-12-06 14:14] VITALS: BP 98/61; PULSE 49; RESP 14; O2SAT 98
[2020-12-06 16:00] VITALS: BP 115/81; PULSE 41; RESP 13; O2SAT 100
[2020-12-06 18:06] LABS: Troponin-I HS 8.1 pg/mL (3.0-78.5)
[2020-12-06 18:17] VITALS: BP 103/71; PULSE 46; RESP 18; O2SAT 98
== END 2020-12-06 18:17 | disposition home or self-care (01) ==
PROVIDERS: Emergency Provider Emergency Medicine
DX: R07.9 Chest pain, unspecified (principal); M54.9 Dorsalgia, unspecified; J45.909 Unspecified asthma, uncomplicated
CPT/HCPCS: 71045; 71260; 80048; 84484; 85025; 93005; 96374; 96375; 99285; Q9967; A4216; J2405

== ENCOUNTER 2021-02-09 08:45 | Emergency (ER) | payer OTHER, SELFPAY ==
[2021-02-09 08:46] VITALS: BP 107/71; PULSE 64; RESP 18; TEMP 37.2; O2SAT 98; BMI 18.3
[2021-02-09 08:50] VITALS: O2SAT 98
--- NOTE | 2021-02-09 09:14 | EDS_ITS ---
HPI History of Present Illness Chief Complaint: General Illness Informant: patient Narrative Narrative: Patient is a 30-year-old male who presents to the emergency department for loss of taste, smell, cough. His symptoms started upon waking this morning. No known sick contacts. He has not been vaccinated for Covid. He does have a history of asthma and has been feeling mildly short of breath. No chest pain. He denies any vomiting/diarrhea. He has had a mild headache. No sore throat. Patient denies a smoking history. He has not taken anything for this. [facility] Medical History Asthma Home Medications NK 12/06/20 [History Last Taken Unknown] Allergy/AdvReac Type Severity Reaction Status Date / Time Fish Containing Products Allergy Itching Verified 02/09/21 08:46 peanut Allergy Anaphylaxis Verified 02/09/21 08:46 Social History Smoking Status: Never smoker alcohol intake: never substance use type: marijuana ROS ROS ED Constitutional Constitutional ED: Denies chills or fever(s) Eyes Eyes: Denies change in vision ENT ENT ED: Denies epistaxis or rhinorrhea Cardiovascular Cardiovascular: Denies chest pain or palpitations Respiratory/Chest Respiratory/Chest: Reports cough; Denies dyspnea or dyspnea on exertion Gastrointestinal Gastrointestinal: Denies abdominal pain, diarrhea, nausea or vomiting Genitourinary Genitourinary ED: Denies dysuria, hematuria or urinary frequency Musculoskeletal Musculoskeletal: Denies back pain or neck pain Integumentary Denies rash Neurologic Neurologic: Reports headache(s); Denies dizziness or weakness EXAM Physical Exam Const Vital Signs: 02/09/21 08:46 02/09/21 08:50 Temperature 98.9 F Temperature Source Temporal Pulse Rate 64 Respiratory Rate 18 Respiratory Effort Normal Non-Labored Respiratory Depth Normal Respiratory Pattern Normal Blood Pressure 107/71 Blood Pressure Mean 83 Pulse Ox 98 Oxygen Delivery Method Room Air Room Air Positive well nourished and well developed General Appearance ED: well developed and NAD HEENT Reports normocephalic and head/scalp atraumatic Eyes PERRL and EOMs intact bilaterally Neck supple Chest Wall inspection of chest normal Resp normal respiratory effort and clear to auscultation bilaterally Auscultation: Negative for rales, rhonchi or wheezes Cardio regular rate, regular rhythm and no murmurs GI normal to inspection, nondistended, normoactive bowel sounds and non-tender Palpation: soft; Negative for guarding or rebound tenderness present Back/Spine no CVA tenderness Extremity normal to inspection General Extremety ED: Negative for edema or tenderness General Extremity: Negative for edema Neuro oriented x3, CN's II-XII intact bilaterally and no sensory deficits noted Sensorium / Orientation: alert Motor Exam: strength 5/5 throughout Psych mental status grossly normal Skin no rashes or lesions noted MDM MDM MDM Narrative Medical decision making narrative: Patient presents the ED for concern for Covid. He has loss of taste, smell, cough. On arrival to the ED satting 90% on room air. The rest of vitals are within normal limits. He has a benign physical exam. Will check Covid swab. No other lab work or imaging indicated at this time. Patient's Covid swab did come back positive. Recommend symptomatic treatment. He is advised to get a home pulse oximeter. Return precautions are reviewed with them. Quarantine precautions were reviewed with him. He otherwise is to follow-up with his PCP. All questions were answered. Discharge Plan Triage Chief Complaint: General Illness ED Provider: Vernon Cooley Dx/Rx/DC Orders Clinical Impression: COVID-19 Instructions: Coronavirus Disease 2019 (COVID-19): Caring for Yourself or Others Prescriptions: No Action NK RF: 0 Primary Care Provider: Care Physician,No Primary Referrals: Care Physician,No Primary [Primary Care Provider] - 1 Week Disposition Disposition: Home, Self Care Discharge Date/Time: 02/09/21 09:50
== END 2021-02-09 09:50 | disposition home or self-care (01) ==
PROVIDERS: Emergency Provider Emergency Medicine
DX: U07.1 COVID-19 (principal); J45.909 Unspecified asthma, uncomplicated
CPT/HCPCS: 87426; 99282

== ENCOUNTER 2021-02-19 08:36 | Emergency (ER) | payer OTHER, SELFPAY ==
[2021-02-19 08:38] VITALS: BP 132/74; PULSE 71; RESP 16; TEMP 36.6; O2SAT 99; BMI 20.3
--- NOTE | 2021-02-19 09:20 | EDS_ITS ---
HPI History of Present Illness Chief Complaint: General Illness Informant: patient Onset/Context/Timing Onset: Days Current Severity: Gone Maximum Severity: Mild Narrative Narrative: 30-year-old male recently tested Covid +11 days ago. He has had no symptoms for last 2 days. Basically he has lost taste and smell which is already returned and had mild viral symptoms. States he feels well and needs a Covid test to go back to work. He denies any complaints. Prior similar symptoms: No Recent Illness/Hospitalization: No PFSH PFSH Medical History Asthma Home Medications NK 12/06/20 [History Last Taken Unknown] Allergy/AdvReac Type Severity Reaction Status Date / Time Fish Containing Products Allergy Itching Verified 02/19/21 08:41 peanut Allergy Anaphylaxis Verified 02/19/21 08:41 Social History Smoking Status: Never smoker alcohol intake: never substance use type: marijuana ROS ROS ED Review of Systems ROS Unobtainable: Denies due to encephalopathy Constitutional Constitutional ED: Denies chills or fever(s) Eyes Eyes: Denies change in vision ENT ENT ED: Denies ear pain or sore throat Cardiovascular Cardiovascular: Denies chest pain Respiratory/Chest Respiratory/Chest: Denies cough or dyspnea Gastrointestinal Gastrointestinal: Denies abdominal pain, diarrhea, nausea or vomiting Genitourinary Genitourinary ED: Denies dysuria Musculoskeletal Musculoskeletal: Denies myalgias Integumentary Denies rash Neurologic Neurologic: Denies headache(s) Psychiatric Psychiatric: Denies depression Endocrine Endocrinology: Denies polyuria Allergic/Immunologic Allergic/Immunologic ED: Denies urticaria EXAM Physical Exam Narrative Exam Narrative: 30-year-old male normal exam. Const Vital Signs: 02/19/21 08:38 02/19/21 09:02 Temperature 97.9 F Temperature Source Temporal Pulse Rate 71 Respiratory Rate 16 Respiratory Effort Normal Non-Labored Respiratory Pattern Normal Blood Pressure 132/74 H Blood Pressure Mean 93 Pulse Ox 99 Oxygen Delivery Method Room Air Positive well nourished and well developed General Appearance ED: well developed and NAD HEENT Reports moist mucous membranes Negative for trauma Eyes PERRL and EOMs intact bilaterally Neck no lymphadenopathy, supple and no JVD General: Negative for tenderness Chest Wall inspection of chest normal and palpation of chest normal Resp normal respiratory effort and clear to auscultation bilaterally Effort and Inspection: Negative for pain with movement Auscultation: Negative for rales or rhonchi Cardio regular rate, regular rhythm, S1 normal heart sound, S2 normal heart sound and no murmurs GI normal to inspection, nondistended, normoactive bowel sounds, non-tender, non- distended and no masses Auscultation: normoactive bowel sounds Palpation: soft; Negative for tender Back/Spine no CVA tenderness Extremity normal to inspection General Extremety ED: Negative for edema or tenderness General Extremity: Negative for edema Neuro oriented x3 and CN's II-XII intact bilaterally Sensorium / Orientation: alert Motor Exam: strength 5/5 throughout Psych mental status grossly normal Skin no rashes or lesions noted and no wounds MDM MDM MDM Narrative Medical decision making narrative: Covid test has been sent. Patient states he will be discharged and he will wait for the results to be texted to him. Discharge Plan Triage Chief Complaint: General Illness ED Provider: Ronald Gutierrez Dx/Rx/DC Orders Clinical Impression: COVID-19 Instructions: Human Coronaviruses Prescriptions: No Action NK RF: 0 Primary Care Provider: Care Physician,No Primary Referrals: Care Physician,No Primary [Primary Care Provider] - As Needed Activity Restrictions/Additional Instructions: Covid results will be texted to your cell phone. Disposition Disposition: Home, Self Care
[2021-02-19 09:46] VITALS: PULSE 89; RESP 16; O2SAT 99
--- NOTE | 2021-02-19 09:46 | ED.RN ---
THIS NURSE REVIEWED D/C INSTRUCTIONS WITH PT. PT VERBALIZED UNDERSTANDING OF INSTRUCTIONS. PT DENIES FURTHER NEEDS OR QUESTIONS AT THIS TIME
== END 2021-02-19 09:47 | disposition home or self-care (01) ==
PROVIDERS: Emergency Provider Emergency Medicine
DX: U07.1 COVID-19 (principal); J45.909 Unspecified asthma, uncomplicated
CPT/HCPCS: 87426; 99282

== ENCOUNTER 2021-04-03 12:19 | Emergency (ER) | payer OTHER, SELFPAY ==
[2021-04-03 12:19] VITALS: BP 114/67; PULSE 72; RESP 16; TEMP 36; O2SAT 97; BMI 18.3
--- NOTE | 2021-04-03 12:29 | EDS_ITS ---
HPI History of Present Illness Chief Complaint: Back Informant: patient Onset/Context/Timing Onset: Today Context: - (awoke w/ sx today) Chronic pain exacerbated by: unk Timing: Continuous Quality: Aching Location: Lumbar Current Severity: Severe Maximum Severity: Severe Worsened by: improves with Movement (especially straightening back/being upright) Relieved by: Remaining Still Associated Symptoms Associated Symptoms: Negative for Numbness, Tingling, Radiation to Right Leg, Radiation to Left Leg, Fever, Abdominal Pain, Dysuria, Unable to Ambulate, Unable to Transfer, Urinary Retention, Urinary Incontinence, Constipation and Fecal Incontinence Narrative Narrative: Patient states he has had discomfort in his back for 2 years or so, has never had any imaging or seen anybody for it because it is never been severe like it is today upon waking up this morning. States he feels it on both sides of his lower back, on the left it shoots toward his left buttock but does not go into his leg. No bowel or bladder dysfunction. No saddle anesthesia. No recent injuries. He is not an IV drug user, not a smoker, denies any recent illness or heavy lifting. Prior similar symptoms: Yes and With Prior Back Pain (For years) [facility] Medical History Asthma Home Medications cyclobenzaprine 10 mg PO TID PRN #20 tablet 04/03/21 [Rx Last Taken Unknown] hydrocodone-acetaminophen 1 tab PO Q4H PRN PRN 2 Days #10 tablet 04/03/21 [Rx Last Taken Unknown] Allergy/AdvReac Type Severity Reaction Status Date / Time Fish Containing Products Allergy Itching Verified 04/03/21 12:29 peanut Allergy Anaphylaxis Verified 04/03/21 12:29 Social History Smoking Status: Never smoker alcohol intake: never substance use type: marijuana ROS ROS ED Constitutional Constitutional ED: Denies chills or fever(s) Gastrointestinal Gastrointestinal: Denies abdominal pain, constipation, fecal incontinence, nausea or vomiting Genitourinary Genitourinary ED: Reports other Details: no urinary retention ; Denies abdominal discomfort or urinary incontinence Musculoskeletal Musculoskeletal: Reports as per HPI and back pain; Denies neck pain Integumentary Denies rash or wounds Neurologic Neurologic: Denies headache(s), paresthesias or weakness EXAM Physical Exam Const Vital Signs: 04/03/21 12:19 Temperature 96.8 F L Temperature Source Temporal Pulse Rate 72 Respiratory Rate 16 Blood Pressure 114/67 Blood Pressure Mean 82 Pulse Ox 97 Oxygen Delivery Method Room Air Positive well nourished and well developed General Appearance ED: well developed and NAD HEENT Negative for trauma or tenderness Eyes PERRL and EOMs intact bilaterally Neck full ROM and supple GI normal to inspection, nondistended, normoactive bowel sounds, soft to palpation and non-tender Back/Spine normal to inspection Thoracic Spine / Upper Back: paraspinal muscle tenderness Lumbar Spine / Lower Back: ROM limited and straight leg raise negative bilaterally Extremity normal to inspection, full ROM and no pedal edema Neuro oriented x3 and no sensory deficits noted Sensorium / Orientation: alert Motor Exam: strength 5/5 throughout and clonus absent Deep Tendon Reflexes: Rt Patellar (L4): 2+, Lt Patellar (L4): 2+, Rt Ankle (S1): 2+ and Lt Ankle (S1): 2+ Deep Tendon Reflexes Back: Rt Patellar (L4): 2+, Lt Patellar (L4): 2+, Rt Ankle (S1): 2+ and Lt Ankle (S1): 2+ Plantar Reflex: Downgoing: bilateral Psych mental status grossly normal and thought process normal Skin no rashes or lesions noted and no wounds MDM MDM MDM Narrative Medical decision making narrative: I obtain lumbar x-rays since he has had pain for so long and has never had any imaging. He did not show any acute problems. He was treated symptomatically for musculoskeletal back pain, and advised to follow-up as if he has persistent symptoms, he needs further evaluation as an outpatient. Radiography Diagnostic Testing: Clinical Impression(s) from Imaging Studies Lumbar Spine X-Ray 04/03/21 12:50 IMPRESSION: There is straightening of the normal lumbar lordosis. Electronically Signed: Javier Clifford MD at 13:00 EDT , Service support , Discharge Plan Triage Chief Complaint: Back ED Provider: Harish Flores Dx/Rx/DC Orders Clinical Impression: Acute exacerbation of chronic low back pain Instructions: ED Back Pain (Acute or Chronic) Prescriptions: New hydrocodone-acetaminophen [hydrocodone-acetaminophen] 1 TABLET tablet 1 tab PO Q4H PRN PRN (Reason: Pain) 2 Days Qty: 10 RF: 0 cyclobenzaprine [cyclobenzaprine] 10 MG tablet 10 mg PO TID PRN (Reason: Muscle Spasm) Qty: 20 RF: 0 Primary Care Provider: Care Physician,No Primary Referrals: Rosalee Houston MD [STAFF PHYSICIAN] - 1 Week if not improving Care Physician,No Primary [Primary Care Provider] - Disposition Disposition: Home, Self Care
[2021-04-03] MEDS: Ketorolac 60 MG/2 ML Vial IM (12:34)
[2021-04-03] MEDS: Orphenadrine 60 MG/2 ML Ampul IM (12:34)
--- NOTE | 2021-04-03 12:50 | RAD_ITS ---
STUDY: X-RAY - LUMBAR SPINE REASON FOR EXAM: Male, 31 years old. Pain TECHNIQUE: 3 view(s) of the lumbar spine were obtained. COMPARISON: None FINDINGS: There is straightening of the normal lumbar lordosis. There is no substantial scoliosis. There is a normal alignment of the vertebrae. Normal vertebral bodies and endplates. Normal disc space heights. The soft tissue structures are unremarkable. RAD/Lumbar Spine 2 or 3 Views IMPRESSION: There is straightening of the normal lumbar lordosis. Electronically Signed: Javier Clifford MD at 13:00 EDT , Service support ,
[2021-04-03 14:00] VITALS: BP 116/72
[2021-04-03] MEDS: HYDROcodone Bitartrate/Apap 5/325 Tablet PO (14:02)
== END 2021-04-03 14:03 | disposition home or self-care (01) ==
PROVIDERS: Emergency Provider Emergency Medicine
DX: G89.29 Other chronic pain (principal); M54.50 Low back pain, unspecified; J45.909 Unspecified asthma, uncomplicated
CPT/HCPCS: 72100; 96372; 99283

== ENCOUNTER 2021-12-06 10:17 | Emergency (ER) | payer SELFPAY ==
[2021-12-06 10:17] VITALS: BP 123/81; PULSE 58; RESP 16; TEMP 36.3; O2SAT 100; BMI 19.8
--- NOTE | 2021-12-06 10:32 | ED.VIS.DENTA ---
HPI History of Present Illness Chief Complaint: Dental Informant: patient Narrative Narrative: Patient's had some problems with his teeth for months. Several months ago he was treated with amoxicillin and he had improvement slightly. He never got swelling of the jaw. He saw a dental resource center again on Tuesday. He was placed on amoxicillin again for pain in the left lower jaw with some slight swelling. He took the amoxicillin Tuesday and Tuesday. Tuesday evening he started to get swelling that he noticed a little bit on his face so he stopped the amoxicillin right away. The swelling is still going on but really has not progressed much since Tuesday morning. He has no trouble swallowing or eating. No fevers or chills. No headaches. He denies any allergy to antibiotics. He does have a dental resource sheet that they gave him for final management of this. [facility] Medical History Asthma Medical History no medical history Home Medications cyclobenzaprine 10 mg tablet 10 mg PO TID PRN Muscle Spasm #20 TABLETS 04/03/21 [Rx Last Taken Unknown] hydrocodone-acetaminophen 5-325mg 5mg-325mg 1 tab PO Q4H PRN PRN Pain 2 days #10 TABLETS 04/03/21 [Rx Last Taken Unknown] clindamycin HCl 300 mg capsule (Cleocin HCl) 300 mg PO Q6H #40 caps 12/06/21 [Rx Last Taken Unknown] Allergy/AdvReac Type Severity Reaction Status Date / Time Fish Containing Products Allergy Itching Verified 04/03/21 12:29 peanut Allergy Anaphylaxis Verified 04/03/21 12:29 Social History Smoking Status: Never smoker alcohol intake: never substance use type: marijuana ROS ROS ED Constitutional Constitutional ED: Denies chills, fever(s) or subjective Eyes Eyes: Denies change in vision ENT ENT ED: Reports other Details: See history of present illness. ; Denies ear pain, rhinorrhea or sore throat Cardiovascular Cardiovascular: Denies chest pain Respiratory/Chest Respiratory/Chest: Denies cough or dyspnea Gastrointestinal Gastrointestinal: Denies nausea or vomiting Musculoskeletal Musculoskeletal: Denies neck pain Neurologic Neurologic: Denies headache(s) Allergic/Immunologic Allergic/Immunologic ED: Reports other Details: No rash, pruritus or hives. ; Denies urticaria EXAM Physical Exam Const Vital Signs: 12/06/21 10:17 Temperature 97.4 F L Temperature Source Temporal Pulse Rate 58 L Respiratory Rate 16 Blood Pressure 123/81 H Blood Pressure Mean 95 Pulse Ox 100 Oxygen Delivery Method Room Air Positive well nourished and well developed Constitutional Narrative: Patient sitting quietly in the bed. Calm carries on a normal conversation. Is easy and understand. General Appearance ED: well developed and NAD HEENT HEENT Narrative: Patient does have a little bit of swelling over the distal lateral mandible seen externally. No erythema. Is not fluctuant. It is really a localized area couple centimeters around but does not extend up over the face or down below the angle of the mandible. He has multiple teeth in his mouth that have significant dental caries and are worn off down toward the gums. He has some erythema and gum swelling behind this area of facial swelling but there is no soft or fluctuant area. No drainable abscess. Floor the mouth is soft. Tongue moves normally. Voice is normal. No sign of Ludewig's angina. Eyes EOMs intact bilaterally Eyes Narrative: No sinus tenderness. Neck no lymphadenopathy Lymph Lymphatic: no lymphadenopathy noted Resp normal respiratory effort Extremity normal to inspection Psych mental status grossly normal Skin no rashes or lesions noted Skin Narrative: No hives or rashes. MDM MDM MDM Narrative Medical decision making narrative: Patient was on antibiotics for 3 days when he started to get the swelling. It is possible this may have just improved if he stayed on the antibiotics. However, since he was on 3 days I will switch him to a different class. There is no indication for imaging at this time. He is very nontoxic. He is a small amount of external facial swelling. We did discuss reasons to return. I will also give him a dental resource sheet that we have so he has more options for long-term and permanent management. Discharge Plan Triage Chief Complaint: Dental ED Provider: Guicho Rae Dx/Rx/DC Orders Clinical Impression: Dental abscess Instructions: Dental Abscess Prescriptions: New clindamycin HCl [Cleocin HCl] 300 mg capsule 300 mg PO Q6H Qty: 40 0RF No Action hydrocodone-acetaminophen [hydrocodone-acetaminophen] 1 TABLET tablet 1 tab PO Q4H PRN PRN (Reason: Pain) 2 Days Qty: 10 0RF cyclobenzaprine [cyclobenzaprine] 10 MG tablet 10 mg PO TID PRN (Reason: Muscle Spasm) Qty: 20 0RF Primary Care Provider: Care Physician,No Primary Referrals: Care Physician,No Primary [Primary Care Provider] - Activity Restrictions/Additional Instructions: Follow-up with dentist as soon as possible. Disposition Disposition: Home, Self Care
[2021-12-06] MEDS: Clindamycin HCl 150 MG Capsule 300 MG PO (10:50)
== END 2021-12-06 10:57 | disposition home or self-care (01) ==
LOC: ED 10:44
PROVIDERS: Emergency Provider Emergency Medicine; Visit Provider Emergency Medicine
DX: K04.7 Periapical abscess without sinus (principal); F12.90 Cannabis use, unspecified, uncomplicated
CPT/HCPCS: 99283

== ENCOUNTER 2022-08-02 19:48 | Emergency (ER) | payer SELFPAY ==
[2022-08-02 19:49] VITALS: BP 127/75; PULSE 69; RESP 20; TEMP 36.3; O2SAT 90; O2SAT 91; BMI 21.3
--- NOTE | 2022-08-02 19:59 | ED.VIS.DYS ---
HPI History of Present Illness Chief Complaint: Shortness of Breath Detail of Chief Complaint: Shortness of breath Informant: patient Narrative Narrative: Patient presents to the emergency department via EMS with complaint of feeling short of breath today. Patient states that he started off with nasal congestion about 2 days ago. Patient denies fever. He has had a mild cough that is nonproductive. Patient states that he gradually started feeling more short of breath today to the point where he felt like he could not catch his breath. EMS was called and they gave him a breathing treatment. Patient states that he has a history of asthma but does not have an inhaler. He denies sick contacts. He denies chest pain. [facility] Medical History Asthma Medical History no medical history Home Medications cyclobenzaprine 10 mg tablet 10 mg PO TID PRN Muscle Spasm #20 TABLETS 04/03/21 [Rx Last Taken Unknown] hydrocodone-acetaminophen 5-325mg 5mg-325mg 1 tab PO Q4H PRN PRN Pain 2 days #10 TABLETS 04/03/21 [Rx Last Taken Unknown] clindamycin HCl 300 mg capsule (Cleocin HCl) 300 mg PO Q6H #40 caps 12/06/21 [Rx Last Taken Unknown] prednisone 20 mg tablet 20 mg PO BID #10 tabs 08/02/22 [Rx Last Taken Unknown] Allergy/AdvReac Type Severity Reaction Status Date / Time Fish Containing Products Allergy Itching Verified 04/03/21 12:29 peanut Allergy Anaphylaxis Verified 04/03/21 12:29 Social History Smoking Status: Never smoker alcohol intake: never substance use type: marijuana ROS ROS ED Review of Systems ROS Unobtainable: other Constitutional Constitutional ED: Reports lethargy; Denies chills, fever(s), sweats or weight loss Eyes Eyes: Denies blurry vision, change in vision or diplopia ENT ENT ED: Denies rhinorrhea or sore throat Cardiovascular Cardiovascular: Denies chest pain, orthopnea or racing heartbeat Respiratory/Chest Respiratory/Chest: Reports cough, dyspnea and dyspnea on exertion; Denies orthopnea or sputum Gastrointestinal Gastrointestinal: Denies abdominal pain, diarrhea, nausea or vomiting Genitourinary Genitourinary ED: Denies dysuria, hematuria or urinary frequency Musculoskeletal Musculoskeletal: Denies arthralgias, back pain, myalgias or neck pain Integumentary Denies abscess, Abrasions or rash Neurologic Neurologic: Denies headache(s) or weakness Psychiatric Psychiatric: Denies anxiety, depression or suicidal thoughts Endocrine Endocrinology: Denies polydipsia, polyphagia or polyuria Hematologic/Lymphatic Hematologic/Lymphatic: Denies easy bleeding, easy bruising or lymphadenopathy Allergic/Immunologic Allergic/Immunologic ED: Denies mouth swelling, tongue swelling or urticaria EXAM Physical Exam Const Vital Signs: 08/02/22 19:49 08/02/22 19:49 08/02/22 20:01 Temperature 97.4 F L Temperature Source Temporal Pulse Rate 69 92 Respiratory Rate 20 H 16 Respiratory Effort Short of Breath Respiratory Depth Shallow Respiratory Pattern Tachypnea Normal Blood Pressure 127/75 H Blood Pressure Mean 92 Pulse Ox 91 Oxygen Delivery Method Room Air Room Air 08/02/22 20:01 Temperature Temperature Source Pulse Rate Respiratory Rate 18 Respiratory Effort Normal Non-Labored Respiratory Depth Normal Respiratory Pattern Normal Blood Pressure Blood Pressure Mean Pulse Ox 97 Oxygen Delivery Method Room Air Positive well nourished and well developed General Appearance ED: well developed and NAD HEENT Reports TM's clear and moist mucous membranes normocephalic and atraumatic; Negative for trauma or tenderness Tympanic Membrane ED: Yes TM's clear Eyes PERRL and EOMs intact bilaterally General Eye ED: Negative for pale conjunctiva or scleral icterus Neck no lymphadenopathy, supple and no JVD General: Negative for tenderness Chest Wall inspection of chest normal and palpation of chest normal Chest: Negative for tenderness Resp normal respiratory effort and clear to auscultation bilaterally Resp Narrative: No conversational dyspnea. Mild tachypnea. No accessory muscle use or retractions. Patient is some faint expiratory wheezes bilaterally. Effort and Inspection: Negative for respiratory distress or pain with movement Auscultation: wheezes; Negative for rhonchi or diminished lung sounds Cardio regular rate, regular rhythm, S1 normal heart sound, S2 normal heart sound and no murmurs Peripheral Pulses: pulses 2+ throughout GI normal to inspection, nondistended, normoactive bowel sounds, soft to palpation, non-tender, non-distended and no masses Back/Spine no CVA tenderness and no thoracic nor lumbar tenderness Extremity normal to inspection General Extremety ED: Negative for edema General Extremity: Negative for edema Neuro oriented x3, CN's II-XII intact bilaterally, no sensory deficits noted and gait normal Sensorium / Orientation: awake, alert, oriented to person, oriented to place and oriented to time Motor Exam: strength 5/5 throughout and strength abnormal Psych mental status grossly normal Skin no rashes or lesions noted and no wounds MDM MDM MDM Narrative Medical decision making narrative: On arrival patient feeling significantly improved. Still has some wheezing therefore he will be given a DuoNeb aerosol and will be given prednisone 60 mg p.o. We will obtain a chest x-ray and testing for COVID and influenza. Clinically he looks well at this time. Patient had a rapid COVID and rapid flu test both were negative. Chest x-ray obtained was unremarkable. Patient was given a DuoNeb aerosol and currently he feels back to baseline. He has no wheezing on exam and he is not tachypneic or in any extremis. Suspect patient likely has a viral asthmatic bronchitis. Will treat with an albuterol MDI for home and write a prescription for prednisone. Patient referred to primary care physician engineering manager electronics for no doc to follow-up with within next 3 to 5 days. He is advised to return if increased difficulty breathing or condition should worsen anyway. Lab Data Attestation: I reviewed the patient's lab results. Radiography Diagnostic Testing: Clinical Impression(s) from Imaging Studies Chest X-Ray 08/02/22 20:10 IMPRESSION: No radiographic evidence of acute cardiopulmonary disease. Electronically Signed: Susanne Hoover MD at 20:41 EST Reading Location ID and State: [id number] / Tel , Service support , 1 view chest x-ray obtained interpreted by myself no acute evidence of infiltrate or pneumothorax. No acute disease process. Radiology in agreement. Discharge Plan Triage Chief Complaint: Shortness of Breath ED Provider: Camilo Crockett Dx/Rx/DC Orders Clinical Impression: Asthmatic bronchitis Instructions: ED Bronchitis with Wheezing (Adult) Prescriptions: New prednisone 20 mg tablet 20 mg PO BID Qty: 10 0RF No Action hydrocodone-acetaminophen [hydrocodone-acetaminophen] 1 TABLET tablet 1 tab PO Q4H PRN PRN (Reason: Pain) 2 Days Qty: 10 0RF cyclobenzaprine [cyclobenzaprine] 10 MG tablet 10 mg PO TID PRN (Reason: Muscle Spasm) Qty: 20 0RF clindamycin HCl [Cleocin HCl] 300 mg capsule 300 mg PO Q6H Qty: 40 0RF Primary Care Provider: Care Physician,No Primary Referrals: Bautista Parr MD [Med Staff - Active Staff] - 3-5 Days Care Physician,No Primary [Primary Care Provider] - Disposition Disposition: Home, Self Care
[2022-08-02 20:01] VITALS: PULSE 92; RESP 16; RESP 18; O2SAT 97
[2022-08-02] MEDS: Ipratropium/Albuterol Sulfate 3 ML AMPUL.NEB INHALATION (20:01)
--- NOTE | 2022-08-02 20:10 | RAD_ITS ---
INDICATION: Dyspnea EXAMINATION/TECHNIQUE: X-RAY - XR Chest 1 View COMPARISON: 12/06/2020. FINDINGS: LINES/DEVICES: None. LUNGS: No consolidation, edema or effusion. No pneumothorax. MEDIASTINUM AND CARDIOVASCULAR STRUCTURES: Cardiac silhouette not enlarged. Central airways and mediastinal contour are unremarkable. BONES AND SOFT TISSUES: Unremarkable. RAD/Chest 1 View (Portable) IMPRESSION: No radiographic evidence of acute cardiopulmonary disease. Electronically Signed: Susanne Hoover MD at 20:41 EST Reading Location ID and State: [id number] / Tel , Service support ,
[2022-08-02] MEDS: predniSONE 20 MG Tablet 60 MG PO (20:24)
[2022-08-02] MEDS: Albuterol Sulfate 8 gm Inhaler (60 puffs) 2 PUFF INHALATION (21:24)
[2022-08-02 22:03] VITALS: BP 97/84; PULSE 72; RESP 15; TEMP 36.8; O2SAT 98
== END 2022-08-02 22:08 | disposition home or self-care (01) ==
PROVIDERS: Emergency Provider Emergency Medicine; Visit Provider Emergency Medicine
DX: J45.909 Unspecified asthma, uncomplicated (principal); Z20.822 Contact with and (suspected) exposure to COVID-19; Z79.52 Long term (current) use of systemic steroids
CPT/HCPCS: 71045; 87428; 94640; 99252; 99285; A4216; G0463

== ENCOUNTER 2022-08-23 11:45 | Emergency (ER) | payer MEDICAID, SELFPAY ==
[2022-08-23 11:45] VITALS: BP 123/91; PULSE 95; RESP 18; TEMP 36.6; O2SAT 97; BMI 19.1
--- NOTE | 2022-08-23 11:53 | RAD_ITS ---
STUDY: X-RAY CHEST REASON FOR EXAM: Male, 32 years old. SOB TECHNIQUE: Single AP portable view of the chest. COMPARISON: 08/02/2022 FINDINGS: The lungs are clear and expanded. There is no demonstrated pleural abnormality. Normal size heart. Normal mediastinum and betsy. Normal visualized pulmonary arteries. Normal visualized aortic arch and descending thoracic aorta. Normal visualized thoracic spine. Normal visualized ribs, clavicles, and shoulders. There is no demonstrated abnormality of the visualized soft tissue structures of the upper abdomen. RAD/Chest 1 View (Portable) IMPRESSION: Normal x-ray examination of the chest. Electronically Signed: Job Hunt MD at 12:08 EDT ,
--- NOTE | 2022-08-23 13:11 | EDS_ITS ---
HPI HPI - URI History of Present Illness Chief Complaint: Shortness of Breath Narrative Narrative: 32-year-old male presenting with generalized fatigue, chills, body aches, cough, shortness of breath for 24 hours. Patient does not know if he had a fever or not because he has not checked. Denies nausea or vomiting. Denies chest pain. Patient states he has a history of asthma. ROS ROS ED Constitutional Constitutional ED: Denies chills or fever(s) Eyes Eyes: Denies blurry vision or change in vision ENT ENT ED: Denies rhinorrhea or sore throat Cardiovascular Cardiovascular: Denies chest pain or palpitations Respiratory/Chest Respiratory/Chest: Reports cough and dyspnea Gastrointestinal Gastrointestinal: Denies abdominal pain, nausea or vomiting Genitourinary Genitourinary ED: Denies dysuria or hematuria Musculoskeletal Musculoskeletal: Denies arthralgias Integumentary Denies abscess Neurologic Neurologic: Denies headache(s) or paresthesias Psychiatric Psychiatric: Denies anxiety or depression [facility] Medical History Asthma Home Medications cyclobenzaprine 10 mg tablet 10 mg PO TID PRN Muscle Spasm #20 TABLETS 04/03/21 [Rx Last Taken Unknown] hydrocodone-acetaminophen 5-325mg 5mg-325mg 1 tab PO Q4H PRN PRN Pain 2 days #10 TABLETS 04/03/21 [Rx Last Taken Unknown] clindamycin HCl 300 mg capsule (Cleocin HCl) 300 mg PO Q6H #40 caps 12/06/21 [Rx Last Taken Unknown] prednisone 20 mg tablet 20 mg PO BID #10 tabs 08/02/22 [Rx Last Taken Unknown] albuterol sulfate 90 mcg/actuation aerosol inhaler (Ventolin HFA) 1 - 2 puff inhalation Q4H PRN PRN Wheezing #8.5 grams 08/23/22 [Rx Last Taken Unknown] prednisone 50 mg tablet 50 mg PO DAILY 5 days #5 tabs 08/23/22 [Rx Last Taken Unknown] Allergy/AdvReac Type Severity Reaction Status Date / Time Fish Containing Products Allergy Itching Verified 08/23/22 11:48 peanut Allergy Anaphylaxis Verified 08/23/22 11:48 Social History Smoking Status: Never smoker alcohol intake: never substance use type: marijuana EXAM Physical Exam Const Vital Signs: 08/23/22 11:45 08/23/22 13:25 08/23/22 13:35 Temperature 98 F Temperature Source Temporal Pulse Rate 95 95 Respiratory Rate 18 18 Respiratory Effort Respiratory Pattern Normal Blood Pressure 123/91 H Blood Pressure Mean 101 Pulse Ox 97 Oxygen Delivery Method Room Air Room Air 08/23/22 13:35 08/23/22 13:35 08/23/22 14:43 Temperature Temperature Source Pulse Rate 59 L Respiratory Rate 16 Respiratory Effort Short of Breath Respiratory Pattern Blood Pressure 122/76 H Blood Pressure Mean Pulse Ox 95 96 Oxygen Delivery Method Room Air Positive well nourished General Appearance ED: NAD; Negative for pallor HEENT Reports moist mucous membranes normocephalic and atraumatic Throat: posterior oropharynx normal Eyes Negative for PERRL or EOMs intact bilaterally Neck no lymphadenopathy, supple and no meningeal signs Resp normal respiratory effort Auscultation: wheezes inspiratory wheezes Cardio Rate: regular rate GI Negative for non-tender, non-distended or no masses Neuro oriented x3 and CN's II-XII intact bilaterally Sensorium / Orientation: alert Psych mental status grossly normal Skin General Skin Exam: Negative for jaundice or pallor MDM MDM MDM Narrative Medical decision making narrative: Patient presenting with viral symptoms. He tested positive for influenza a today. Chest x-ray was obtained and on my interpretation shows no acute process. Patient is wheezing on examination so this given breathing treatments and prednisone. On reevaluation he is feeling improved. He will be given a burst of prednisone for home. He is also given an albuterol inhaler. Discussed return precautions. Impression: 1. Acute asthma exacerbation 2. Influenza A Radiography Diagnostic Testing: Clinical Impression(s) from Imaging Studies Chest X-Ray 08/23/22 11:53 IMPRESSION: Normal x-ray examination of the chest. Electronically Signed: Job Hunt MD at 12:08 EDT , Discharge Plan Triage Chief Complaint: Shortness of Breath ED Provider: eDep Shin Dx/Rx/DC Orders Instructions: ED Asthma, Acute (Adult), ED Influenza (Adult) Prescriptions: New prednisone 50 mg tablet 50 mg PO DAILY 5 Days Qty: 5 0RF albuterol sulfate [Ventolin HFA] 90 mcg/actuation HFA aerosol inhaler 1 - 2 puff inhalation Q4H PRN PRN (Reason: Wheezing) Qty: 8.5 0RF No Action hydrocodone-acetaminophen [hydrocodone-acetaminophen] 1 TABLET tablet 1 tab PO Q4H PRN PRN (Reason: Pain) 2 Days Qty: 10 0RF cyclobenzaprine [cyclobenzaprine] 10 MG tablet 10 mg PO TID PRN (Reason: Muscle Spasm) Qty: 20 0RF clindamycin HCl [Cleocin HCl] 300 mg capsule 300 mg PO Q6H Qty: 40 0RF prednisone 20 mg tablet 20 mg PO BID Qty: 10 0RF Primary Care Provider: Care Physician,No Primary Referrals: Care Physician,No Primary [Primary Care Provider] - Disposition Disposition: Home, Self Care Discharge Date/Time: 08/23/22 14:45
[2022-08-23] MEDS: Ipratropium/Albuterol Sulfate 3 ML AMPUL.NEB INHALATION (13:23)
[2022-08-23] MEDS: Albuterol 2.5 MG/3 ML VIAL.NEB. INHALATION (13:24)
[2022-08-23 13:25] VITALS: PULSE 95; RESP 18
[2022-08-23 13:35] VITALS: O2SAT 95
[2022-08-23] MEDS: predniSONE 20 MG Tablet 60 MG PO (13:38)
--- NOTE | 2022-08-23 13:56 | CM.ED ---
Social Work Note Referral Source: CAMELIA Richmond Referral Reason: insurance coverage CAMELIA Richmond was informed by respiratory staff patient does not have insurance coverage for an inhaler. SW to follow up. SW met with patient and introduced role as [facility] Bed Manager. Patient agreeable to speak to SW. Patient reports he does have insurance but it is not accepted everywhere. Patient declined Medicaid application and showed SW [employer] insurance card. SW inquired if patient needs a list of PCPs accepting new patient's in network with his insurance, patient requesting list. SW then review information regarding [facility] as well as [facility] as resources. SW also informed patient there are coupons on [employer] to assist with prescription costs. SW returned and provided patient with list of in network PCPs accepting new patients in [facility]. SW also provide patient with a list of pharmacies in network with his insurance. Patient was receptive towards lists provided and reports no other needs at this time. SW remains available if needs arise. Mitra Daly POWER BRAKE REBUILDER, JJ
[2022-08-23 14:43] VITALS: BP 122/76; PULSE 59; RESP 16; O2SAT 96
== END 2022-08-23 14:45 | disposition home or self-care (01) ==
PROVIDERS: Emergency Provider Student in an Organized Health Care Education/Training Program; Visit Provider Student in an Organized Health Care Education/Training Program
DX: J45.901 Unspecified asthma with (acute) exacerbation (principal); J10.1 Influenza due to other identified influenza virus with other respiratory manifestations; Z79.899 Other long term (current) drug therapy
CPT/HCPCS: 71045; 87428; 94640; 94760; 99283

== ENCOUNTER 2022-09-29 01:59 | Emergency (ER) | payer MEDICAID, SELFPAY ==
[2022-09-29 02:00] VITALS: BP 131/78; PULSE 60; RESP 24; TEMP 36.4; O2SAT 93
[2022-09-29 02:03] VITALS: O2SAT 93; BMI 20.8
--- NOTE | 2022-09-29 02:11 | RAD_ITS ---
EXAM: XR CHEST, 2 VIEWS CLINICAL INDICATION: SOB SOB TECHNIQUE: Frontal and lateral views of the chest. This report was created using [employer] report generation technology. COMPARISON: 08/23/2022. FINDINGS: LUNGS AND PLEURAL SPACES: Unremarkable. No consolidation or edema. No pneumothorax. No effusion. HEART: Unremarkable. Cardiac silhouette not enlarged. MEDIASTINUM: Central airways and mediastinal contour are unremarkable. BONES/JOINTS: Unremarkable. SOFT TISSUES: Unremarkable. RAD/Chest PA and Lateral IMPRESSION: No radiographic evidence of acute cardiopulmonary disease. Electronically Signed: Jefry Ingram MD at 3:03 EDT Reading Location ID and State: [facility] / [place] , Service support ,
--- NOTE | 2022-09-29 02:11 | EKG12_ITS ---
Test Reason : SOB Blood Pressure : / mmHG Vent. Rate : 059 BPM Atrial Rate : 059 BPM P-R Int : 150 ms QRS Dur : 090 ms QT Int : 390 ms P-R-T Axes : -17 090 050 degrees QTc Int : 386 ms Sinus bradycardia Rightward axis Borderline ECG Confirmed by LEANN DE ANDA, LILIA ([id number]), assignment desk editor ANGELINA WOO ([id number]) on 10/04/2022 10:47:19 AM Referred By: MANISHA Confirmed By:LILIA NORIEGA MD
[2022-09-29 02:13] VITALS: PULSE 70; RESP 14
[2022-09-29] MEDS: Ipratropium/Albuterol Sulfate 3 ML AMPUL.NEB INHALATION (02:13)
[2022-09-29] MEDS: MethylPREDNISolone 125 MG/2 ML Vial IV (02:29)
[2022-09-29 02:30] VITALS: BP 116/79; PULSE 62; RESP 18; O2SAT 95
[2022-09-29 03:00] VITALS: BP 119/74; PULSE 64; RESP 14; O2SAT 98
[2022-09-29 03:10] LABS: Anion Gap 1 (5-15); BUN 16 mg/dL (7-18); BUN/Creat Ratio 13.8 RATIO (10-20); Calcium,Total 9.7 mg/dL (8.5-10.1); Chloride 106 mmol/L (98-107); Creatinine, Serum 1.16 mg/dL (0.70-1.30); EST Glomerular Filtration Rate 76 mL/min (>60); Est Glom Filt Rate - Afr Amer 92 mL/min (>60); Glucose 91 mg/dL (74-106); Potassium 3.9 mmol/L (3.5-5.1); Sodium Level 139 mmol/L (136-145)
[2022-09-29 03:15] VITALS: BP 113/79; PULSE 67; RESP 14; O2SAT 98
--- NOTE | 2022-09-29 03:15 | EX.ED.DYSGE1 ---
HPI History of Present Illness Chief Complaint: Asthma Narrative Narrative: Patient is a 32-year-old male with past medical history of asthma. He states his symptoms are typically well controlled and he uses a rescue inhaler intermittently. He reports he has had mild congestion and cough for the last few days and then awoke this morning with difficulty breathing. He states he tried his MDI and it seemed to be empty. Secondary to the persistent short of breath and no improvement at home with his medication he presents for evaluation [facility] Medical History Asthma Home Medications cyclobenzaprine 10 mg tablet 10 mg PO TID PRN Muscle Spasm #20 TABLETS 04/03/21 [Rx Last Taken Unknown] hydrocodone-acetaminophen 5-325mg 5mg-325mg 1 tab PO Q4H PRN PRN Pain 2 days #10 TABLETS 04/03/21 [Rx Last Taken Unknown] clindamycin HCl 300 mg capsule (Cleocin HCl) 300 mg PO Q6H #40 caps 12/06/21 [Rx Last Taken Unknown] prednisone 20 mg tablet 20 mg PO BID #10 tabs 08/02/22 [Rx Last Taken Unknown] albuterol sulfate 90 mcg/actuation aerosol inhaler (Ventolin HFA) 1 - 2 puff inhalation Q4H PRN PRN Wheezing #8.5 grams 08/23/22 [Rx Last Taken Unknown] prednisone 50 mg tablet 50 mg PO DAILY 5 days #5 tabs 08/23/22 [Rx Last Taken Unknown] albuterol sulfate 90 mcg/actuation aerosol inhaler (Ventolin HFA) 1 - 2 puff inhalation Q4H PRN PRN wheezing #1 device 09/29/22 [Rx Last Taken Unknown] prednisone 20 mg tablet 40 mg PO DAILY 7 days #14 tabs 09/29/22 [Rx Last Taken Unknown] Allergy/AdvReac Type Severity Reaction Status Date / Time Fish Containing Products Allergy Itching Verified 08/23/22 11:48 peanut Allergy Anaphylaxis Verified 08/23/22 11:48 Social History Smoking Status: Never smoker alcohol intake: never substance use type: marijuana ROS ROS ED Constitutional Constitutional ED: Denies chills or fever(s) ENT ENT ED: Reports rhinorrhea; Denies sore throat Cardiovascular Cardiovascular: Denies chest pain Respiratory/Chest Respiratory/Chest: Reports cough and dyspnea Gastrointestinal Gastrointestinal: Denies abdominal pain, diarrhea, nausea or vomiting Genitourinary Genitourinary ED: Denies dysuria Musculoskeletal Musculoskeletal: Denies myalgias Integumentary Denies rash Neurologic Neurologic: Denies headache(s) Hematologic/Lymphatic Hematologic/Lymphatic: Denies easy bleeding or easy bruising EXAM Physical Exam Const Vital Signs: 09/29/22 02:00 09/29/22 02:03 09/29/22 02:13 Temperature 97.6 F L Temperature Source Oral Pulse Rate 60 70 Respiratory Rate 24 H 14 Respiratory Effort Normal Respiratory Depth Shallow Respiratory Pattern Tachypnea Normal Blood Pressure 131/78 H Blood Pressure Mean 95 Pulse Ox 93 Oxygen Delivery Method Room Air Room Air 09/29/22 02:30 09/29/22 03:00 Temperature Temperature Source Pulse Rate 62 64 Respiratory Rate 18 14 Respiratory Effort Respiratory Depth Respiratory Pattern Blood Pressure 116/79 119/74 Blood Pressure Mean 91 89 Pulse Ox 95 98 Oxygen Delivery Method Room Air Room Air Positive well nourished and well developed General Appearance ED: well developed HEENT Reports moist mucous membranes HEENT Narrative: No tongue or lip swelling no oral lesions no airway edema or compromise. There is cobblestoning the posterior pharynx consistent with sinus drainage Eyes PERRL and EOMs intact bilaterally General Eye ED: Negative for pale conjunctiva Neck supple and no JVD Chest Wall palpation of chest normal Chest Narrative: No bony deformity or crepitance Resp Resp Narrative: Breath sounds are diminished throughout with diffuse expiratory wheeze otherwise no nasal flaring or retractions noted there is slight tachypnea present Cardio regular rate and regular rhythm GI normal to inspection, nondistended, normoactive bowel sounds, non-tender, non-distended and no masses Auscultation: normoactive bowel sounds Palpation: soft Extremity normal to inspection Extremity Narrative: No asymmetric edema no pitting edema negative Homans' sign bilaterally Neuro oriented x3 and CN's II-XII intact bilaterally Sensorium / Orientation: alert Psych mental status grossly normal Skin no rashes or lesions noted MDM MDM MDM Narrative Medical decision making narrative: Patient presented to the ER satting in the low to mid 90s on room air but he was tachypneic with diffuse wheeze consistent with a bronchospasm. As differential includes pneumonia versus pneumothorax versus pleural effusion or asthma exacerbation a basic chest x-ray was ordered as well as breathing medication. Chest x-ray revealed no acute findings and after he was medicated with steroids and breathing treatments he had resolution of symptoms. Breath sounds improved as well as work of breathing. Therefore at this time with resolution of his dyspnea and no need for emergent admission as he is not hypoxic requiring supplemental oxygen or needing a chest tube he is otherwise safe for discharge History & Record Review Discussion w/independent historian: Patient Lab Data Attestation: I reviewed the patient's lab results. Labs: Laboratory Results - last 24 hr 09/29/22 02:10 Sodium 139 Potassium 3.9 Chloride 106 Carbon Dioxide 32.0 Anion Gap 1 L BUN 16 Creatinine 1.16 Estim Creat Clear Calc 109.40 Est GFR (MDRD) Af Amer 92 Est GFR (MDRD) Non-Af 76 BUN/Creatinine Ratio 13.8 Glucose 91 Calcium 9.7 Magnesium 2.0 Radiography Diagnostic Testing: Clinical Impression(s) from Imaging Studies Chest X-Ray 09/29/22 02:11 IMPRESSION: No radiographic evidence of acute cardiopulmonary disease. Electronically Signed: Jefry Ingram MD at 3:03 EDT Reading Location ID and State: [facility] / [place] , Service support , Chest x-ray as interpreted by the emergency medicine physician reveals no acute infiltrate pneumothorax or pleural effusion Discharge Plan Triage Chief Complaint: Asthma ED Provider: Earl Zambrano Dx/Rx/DC Orders Clinical Impression: Acute asthmatic bronchitis, Acute bronchospasm Instructions: ED Asthma, Acute (Adult), ED Bronchospasm (Adult) Prescriptions: New prednisone 20 mg tablet 40 mg PO DAILY 7 Days Qty: 14 0RF albuterol sulfate [Ventolin HFA] 90 mcg/actuation HFA aerosol inhaler 1 - 2 puff inhalation Q4H PRN PRN (Reason: wheezing) Qty: 1 2RF No Action hydrocodone-acetaminophen [hydrocodone-acetaminophen] 1 TABLET tablet 1 tab PO Q4H PRN PRN (Reason: Pain) 2 Days Qty: 10 0RF cyclobenzaprine [cyclobenzaprine] 10 MG tablet 10 mg PO TID PRN (Reason: Muscle Spasm) Qty: 20 0RF clindamycin HCl [Cleocin HCl] 300 mg capsule 300 mg PO Q6H Qty: 40 0RF prednisone 20 mg tablet 20 mg PO BID Qty: 10 0RF prednisone 50 mg tablet 50 mg PO DAILY 5 Days Qty: 5 0RF albuterol sulfate [Ventolin HFA] 90 mcg/actuation HFA aerosol inhaler 1 - 2 puff inhalation Q4H PRN PRN (Reason: Wheezing) Qty: 8.5 0RF Stand Alone Forms: ED Work / School Excuse Primary Care Provider: Care Physician,No Primary Referrals: Care Physician,No Primary [Primary Care Provider] - Activity Restrictions/Additional Instructions: Please take the steroid as directed to control any further bouts of inflammation and use the inhaler to help prevent further bronchospasm. If you are taking your medications and you have return of symptoms or any further concerns please return for repeat evaluation Disposition Disposition: Home, Self Care Discharge Date/Time: 09/29/22 03:43
== END 2022-09-29 03:43 | disposition home or self-care (01) ==
PROVIDERS: Emergency Provider Emergency Medicine; Visit Provider Emergency Medicine
DX: J45.909 Unspecified asthma, uncomplicated (principal); Z79.52 Long term (current) use of systemic steroids; J20.9 Acute bronchitis, unspecified
CPT/HCPCS: 71046; 80048; 83735; 93005; 94640; 96374; 99282; A4216

== ENCOUNTER 2023-09-28 14:40 | Emergency (ER) | payer MEDICAID, SELFPAY ==
[2023-09-28 14:41] VITALS: BP 118/70; PULSE 66; RESP 18; TEMP 36.3; O2SAT 98; BMI 20.4
--- NOTE | 2023-09-28 15:05 | EDS_ITS ---
HPI History of Present Illness Chief Complaint: Laceration Detail of Chief Complaint: Laceration left thumb Informant: patient Narrative Narrative: Patient presents with laceration to left thumb that occurred prior arrival in the emergency department. Patient states that he was working on his thermostat of his car when he pulled his arm out he lacerated his thumb on body panel. Patient [id number]. Unsure of his last tetanus. [facility] Medical History Asthma Home Medications cyclobenzaprine 10 mg tablet 10 mg PO TID PRN Muscle Spasm #20 TABLETS 04/03/21 [Rx Last Taken Unknown] hydrocodone-acetaminophen 5-325mg 5mg-325mg 1 tab PO Q4H PRN PRN Pain 2 days #10 TABLETS 04/03/21 [Rx Last Taken Unknown] clindamycin HCl 300 mg capsule (Cleocin HCl) 300 mg PO Q6H #40 caps 12/06/21 [Rx Last Taken Unknown] prednisone 20 mg tablet 20 mg PO BID #10 tabs 08/02/22 [Rx Last Taken Unknown] albuterol sulfate 90 mcg/actuation aerosol inhaler (Ventolin HFA) 1 - 2 puff inhalation Q4H PRN PRN Wheezing #8.5 grams 08/23/22 [Rx Last Taken Unknown] prednisone 50 mg tablet 50 mg PO DAILY 5 days #5 tabs 08/23/22 [Rx Last Taken Unknown] albuterol sulfate 90 mcg/actuation aerosol inhaler (Ventolin HFA) 1 - 2 puff inhalation Q4H PRN PRN wheezing #1 device 09/29/22 [Rx Last Taken Unknown] prednisone 20 mg tablet 40 mg (2 x 20 mg) PO DAILY 7 days #14 tabs 09/29/22 [Rx Last Taken Unknown] cephalexin 500 mg capsule 500 mg PO Q6 #28 CAPSULES 09/28/23 [Rx Last Taken Unknown] Allergy/AdvReac Type Severity Reaction Status Date / Time Fish Containing Products Allergy Itching Verified 09/28/23 14:41 peanut Allergy Anaphylaxis Verified 09/28/23 14:41 Social History Smoking Status: Never smoker alcohol intake: never substance use type: marijuana ROS ROS ED Review of Systems ROS Unobtainable: other Constitutional Constitutional ED: Reports lethargy; Denies chills, fever(s), sweats or weight loss Eyes Eyes: Denies blurry vision, change in vision or diplopia ENT ENT ED: Denies rhinorrhea or sore throat Cardiovascular Cardiovascular: Denies chest pain, orthopnea or racing heartbeat Respiratory/Chest Respiratory/Chest: Denies cough, dyspnea, dyspnea on exertion, orthopnea or sputum Gastrointestinal Gastrointestinal: Denies abdominal pain, diarrhea, nausea or vomiting Genitourinary Genitourinary ED: Denies dysuria, hematuria or urinary frequency Musculoskeletal Musculoskeletal: Reports other Details: Laceration left thumb ; Denies arthralgias, back pain, myalgias or neck pain Integumentary Denies abscess, Abrasions or rash Neurologic Neurologic: Denies headache(s) or weakness Psychiatric Psychiatric: Denies anxiety, depression or suicidal thoughts Endocrine Endocrinology: Denies polydipsia, polyphagia or polyuria Hematologic/Lymphatic Hematologic/Lymphatic: Denies easy bleeding, easy bruising or lymphadenopathy Allergic/Immunologic Allergic/Immunologic ED: Denies mouth swelling, tongue swelling or urticaria EXAM Physical Exam Const Vital Signs: 09/28/23 14:41 Temperature 97.4 F L Temperature Source Temporal Pulse Rate 66 Respiratory Rate 18 Blood Pressure 118/70 Blood Pressure Mean 86 Pulse Ox 98 Oxygen Delivery Method Room Air Positive well nourished and well developed General Appearance ED: well developed and NAD HEENT Reports TM's clear and moist mucous membranes normocephalic and atraumatic; Negative for trauma or tenderness Tympanic Membrane ED: Yes TM's clear Eyes PERRL and EOMs intact bilaterally General Eye ED: Negative for pale conjunctiva or scleral icterus Neck no lymphadenopathy, supple and no JVD General: Negative for tenderness Chest Wall inspection of chest normal and palpation of chest normal Chest: Negative for tenderness Resp normal respiratory effort and clear to auscultation bilaterally Effort and Inspection: Negative for respiratory distress or pain with movement Auscultation: Negative for rhonchi, wheezes or diminished lung sounds Cardio regular rate, regular rhythm, S1 normal heart sound, S2 normal heart sound and no murmurs Peripheral Pulses: pulses 2+ throughout GI normal to inspection, nondistended, normoactive bowel sounds, soft to palpation, non-tender, non-distended and no masses Back/Spine no CVA tenderness and no thoracic nor lumbar tenderness Extremity normal to inspection General Extremety ED: Negative for edema General Extremity: Negative for edema Neuro oriented x3, CN's II-XII intact bilaterally, no sensory deficits noted and gait normal Sensorium / Orientation: awake, alert, oriented to person, oriented to place and oriented to time Motor Exam: strength 5/5 throughout and strength abnormal Psych mental status grossly normal Skin Skin Narrative: Patient has a 2.5 cm laceration over the lateral aspect of the thumb over the MCP joint. Small amount of venous oozing. Neurovascular intact. Normal range of motion flexion extension of the digit. MDM MDM MDM Narrative Medical decision making narrative: Patient presents to the emergency department with a laceration to the left thumb. Recommended suture repair. Patient agreement. Please see procedure note. 3 single erupted sutures placed with good wound edge approximation and good hemostasis. Patient medically dressing applied. Given that this is a dirty wound will go ahead and start on Keflex. Gave first dose in the emergency department. Advised to follow-up with primary care physician on-call for no doc within next 10 days for suture removal. To return if increasing pain, redness, swelling, purulent drainage, or condition should worsen anyway. Procedures Lacerations Left thumb laceration: Length: 0.98 in Depth: Sub Q Shape: Linear Prep: Sterile Conditions Laceration repair: Irrigated, Lidocaine and Local Irrigated (ml): 50 Number of Sutures/[place]: 3 Suture Information: Ethilon, Simple and 5-0 Discharge Plan Triage Chief Complaint: Laceration ED Provider: Camilo Crockett Dx/Rx/DC Orders Clinical Impression: Laceration of left thumb Instructions: ED Laceration, Hand: All Closures Prescriptions: New cephalexin [cephalexin] 500 mg capsule 500 mg PO Q6 Qty: 28 0RF No Action hydrocodone-acetaminophen [hydrocodone-acetaminophen] 1 TABLET tablet 1 tab PO Q4H PRN PRN (Reason: Pain) 2 Days Qty: 10 0RF cyclobenzaprine [cyclobenzaprine] 10 MG tablet 10 mg PO TID PRN (Reason: Muscle Spasm) Qty: 20 0RF clindamycin HCl [Cleocin HCl] 300 mg capsule 300 mg PO Q6H Qty: 40 0RF prednisone 20 mg tablet 20 mg PO BID Qty: 10 0RF prednisone 50 mg tablet 50 mg PO DAILY 5 Days Qty: 5 0RF albuterol sulfate [Ventolin HFA] 90 mcg/actuation HFA aerosol inhaler 1 - 2 puff inhalation Q4H PRN PRN (Reason: Wheezing) Qty: 8.5 0RF prednisone 20 mg tablet 40 mg PO DAILY 7 Days Qty: 14 0RF albuterol sulfate [Ventolin HFA] 90 mcg/actuation HFA aerosol inhaler 1 - 2 puff inhalation Q4H PRN PRN (Reason: wheezing) Qty: 1 2RF Primary Care Provider: Care Physician,No Primary Referrals: Federico Duckworth MD [Med Staff - Station Chief] - 10 Day for suture removal Care Physician,No Primary [Primary Care Provider] - Disposition Disposition: Home, Self Care
[2023-09-28] MEDS: Cephalexin 250 MG Capsule 500 MG PO (15:41)
[2023-09-28 15:48] VITALS: BP 114/66; PULSE 66; RESP 18; TEMP 36.6; O2SAT 98
== END 2023-09-28 15:49 | disposition home or self-care (01) ==
LOC: ED 15:28
PROVIDERS: Emergency Provider Emergency Medicine; Visit Provider Emergency Medicine
DX: S61.012A Laceration without foreign body of left thumb without damage to nail, initial encounter (principal); W26.8XXA Contact with other sharp object(s), not elsewhere classified, initial encounter
CPT/HCPCS: 12001; 99283

== ENCOUNTER 2024-03-10 07:44 | Emergency (ER) | payer MEDICAID, SELFPAY ==
[2024-03-10 07:45] VITALS: BP 122/70; PULSE 67; RESP 18; TEMP 35.9; O2SAT 98; BMI 18.7
--- NOTE | 2024-03-10 07:57 | EX.ED.DYSGE1 ---
HPI History of Present Illness Chief Complaint: Nausea/Vomiting/Diarrhea Informant: patient Narrative Narrative: 34-year-old male presenting to the emergency room stating that he feels dehydrated. He states that he works as a heavy truck driver/electronic game developer and did not eat or drink anything yesterday. He states that even after he got home from work he did not eat anything as he states that he just went to bed. Around 0400 hrs. this morning he states he began to throw up stomach acid. He notes a small amount of diarrhea. He states that his abdomen is cramping he is having muscle cramps in his extremities having to walk bent over. No reported fevers. He denies any medical issues that he is treated for. He does not have a primary care doctor. He denies any prior abdominal surgeries. [facility] Medical History Asthma Home Medications ?Medication ?Instructions ?Recorded ?Last Taken ?Type cyclobenzaprine 10 mg tablet 10 mg PO TID PRN Muscle Spasm #20 04/03/21 Unknown Rx TABLETS hydrocodone-acetaminophen 5-325mg 1 tab PO Q4H PRN PRN Pain 2 days 04/03/21 Unknown Rx 5mg-325mg #10 TABLETS clindamycin HCl 300 mg capsule 300 mg PO Q6H #40 caps 12/06/21 Unknown Rx (Cleocin HCl) prednisone 20 mg tablet 20 mg PO BID #10 tabs 08/02/22 Unknown Rx albuterol sulfate 90 mcg/actuation 1 - 2 puff inhalation Q4H PRN PRN 08/23/22 Unknown Rx aerosol inhaler (Ventolin HFA) Wheezing #8.5 grams prednisone 50 mg tablet 50 mg PO DAILY 5 days #5 tabs 08/23/22 Unknown Rx albuterol sulfate 90 mcg/actuation 1 - 2 puff inhalation Q4H PRN PRN 09/29/22 Unknown Rx aerosol inhaler (Ventolin HFA) wheezing #1 device prednisone 20 mg tablet 40 mg (2 x 20 mg) PO DAILY 7 days 09/29/22 Unknown Rx #14 tabs cephalexin 500 mg capsule 500 mg PO Q6 #28 CAPSULES 09/28/23 Unknown Rx ondansetron 4 mg disintegrating 4 mg PO Q6H PRN PRN Nausea #15 tabs 03/10/24 Unknown Rx tablet Allergy/AdvReac Type Severity Reaction Status Date / Time Fish Containing Products Allergy Itching Verified 03/10/24 07:45 peanut Allergy Anaphylaxis Verified 03/10/24 07:45 Social History Smoking Status: Never smoker alcohol intake: never substance use type: marijuana ROS ROS ED Constitutional Constitutional ED: Denies chills, fever(s) or weight loss Eyes Eyes: Denies change in vision or diplopia ENT ENT ED: Reports other Details: Dry mouth ; Denies ear pain, rhinorrhea or sore throat Cardiovascular Cardiovascular: Denies chest pain, orthopnea, palpitations or racing heartbeat Respiratory/Chest Respiratory/Chest: Denies cough, dyspnea or orthopnea Gastrointestinal Gastrointestinal: Reports diarrhea, nausea, vomiting and other Details: Abdominal cramping ; Denies abdominal pain Genitourinary Genitourinary ED: Denies dysuria, hematuria or urinary frequency Musculoskeletal Musculoskeletal: Reports other Details: Extremity cramps ; Denies arthralgias or myalgias Integumentary Denies abscess or rash Neurologic Neurologic: Denies headache(s) or weakness Psychiatric Psychiatric: Denies anxiety, depression, suicidal ideation or suicidal thoughts Endocrine Endocrinology: Denies polydipsia, polyphagia or polyuria Allergic/Immunologic Allergic/Immunologic ED: Denies mouth swelling, tongue swelling or urticaria EXAM Physical Exam Const Vital Signs: 03/10/24 07:45 03/10/24 09:27 Temperature 96.7 F L 96.7 F L Temperature Source Temporal Pulse Rate 67 67 Respiratory Rate 18 18 Blood Pressure 122/70 H 122/70 H Blood Pressure Mean 87 87 Pulse Ox 98 98 Oxygen Delivery Method Room Air Positive well nourished and well developed General Appearance ED: well developed and NAD HEENT Reports normocephalic, head/scalp atraumatic and moist mucous membranes Eyes PERRL and EOMs intact bilaterally Neck no lymphadenopathy, supple and no JVD Resp normal respiratory effort and clear to auscultation bilaterally Cardio regular rate, regular rhythm and no murmurs Cardio Narrative: Normal capillary refill of fingers GI normal to inspection, nondistended, normoactive bowel sounds and non-tender Palpation: soft Back/Spine no CVA tenderness and normal ROM Extremity normal to inspection Extremity Narrative: Patient walks down the hallway bent over stating that his muscles are in spasm. Able to change into his own gown sitting comfortably on the bed. General Extremety ED: Negative for edema General Extremity: Negative for edema Neuro oriented x3 and CN's II-XII intact bilaterally Sensorium / Orientation: alert Motor Exam: strength 5/5 throughout Psych mental status grossly normal Mood & Affect: Negative for depressed or tearful Skin no rashes or lesions noted and no wounds MDM MDM MDM Narrative Medical decision making narrative: Differential diagnosis includes but not limited to small bowel obstruction gastroenteritis dehydration electrolyte abnormalities renal dysfunction pancreatitis biliary colic Patient's blood work is rather unremarkable normal electrolytes no significant elevation of BUN/creatinine normal lipase normal LFTs. His total bilirubin is noted to be 1.3 and direct bilirubin 0.28. Patient received a liter of IV fluids as well as Bentyl and Zofran. He is walking more comfortably in feels more comfortable. To be discharged home with a prescription for Zofran instructions for hydration and to eat proper meals. History & Record Review Discussion w/independent historian: Patient Lab Data Attestation: I reviewed the patient's lab results. Labs: Laboratory Results - last 24 hr 03/10/24 08:10 WBC 4.4 RBC 4.79 Hgb 13.5 Hct 41.5 MCV 86.6 MCH 28.2 MCHC 32.5 RDW Std Deviation 39.0 RDW Coeff of Roni 12.2 Plt Count 177 MPV 10.3 Immature Gran % (Auto) 0.200 Neut % (Auto) 41.9 L Lymph % (Auto) 41.1 H [place] % (Auto) 9.2 Eos % (Auto) 6.9 H Baso % (Auto) 0.7 Absolute Neuts (auto) 1.8 L Absolute Lymphs (auto) 1.79 Nucleated RBC % 0 Sodium 140 Potassium 3.7 Chloride 108 H Carbon Dioxide 29.0 Anion Gap 3 L BUN 19 H Creatinine 1.09 Estim Creat Clear Calc 102.61 Est GFR (MDRD) Af Amer 98 Est GFR (MDRD) Non-Af 81 BUN/Creatinine Ratio 17.4 Glucose 108 H Calcium 8.9 Total Bilirubin 1.30 H Direct Bilirubin 0.28 AST 27 ALT 31 Alkaline Phosphatase 44 L Total Protein 7.2 Albumin 3.9 Globulin 3.3 Lipase 47 Discharge Plan Triage Chief Complaint: Nausea/Vomiting/Diarrhea ED Provider: Mat Aguila Dx/Rx/DC Orders Clinical Impression: Abdominal cramping, Vomiting Instructions: ED Vomiting (Adult) Prescriptions: New ondansetron 4 mg tablet,disintegrating 4 mg PO Q6H PRN PRN (Reason: Nausea) Qty: 15 0RF No Action hydrocodone-acetaminophen [hydrocodone-acetaminophen] 1 TABLET tablet 1 tab PO Q4H PRN PRN (Reason: Pain) 2 Days Qty: 10 0RF cyclobenzaprine [cyclobenzaprine] 10 MG tablet 10 mg PO TID PRN (Reason: Muscle Spasm) Qty: 20 0RF clindamycin HCl [Cleocin HCl] 300 mg capsule 300 mg PO Q6H Qty: 40 0RF prednisone 20 mg tablet 20 mg PO BID Qty: 10 0RF prednisone 50 mg tablet 50 mg PO DAILY 5 Days Qty: 5 0RF albuterol sulfate [Ventolin HFA] 90 mcg/actuation HFA aerosol inhaler 1 - 2 puff inhalation Q4H PRN PRN (Reason: Wheezing) Qty: 8.5 0RF prednisone 20 mg tablet 40 mg PO DAILY 7 Days Qty: 14 0RF albuterol sulfate [Ventolin HFA] 90 mcg/actuation HFA aerosol inhaler 1 - 2 puff inhalation Q4H PRN PRN (Reason: wheezing) Qty: 1 2RF cephalexin [cephalexin] 500 mg capsule 500 mg PO Q6 Qty: 28 0RF Primary Care Provider: Care Physician,No Primary Referrals: Bautista Parr MD [Med Staff - Active Staff] - As Needed (for primary care follow up if needed) Care Physician,No Primary [Primary Care Provider] - Print Language: Citizen [place] Disposition Disposition: Home, Self Care Discharge Date/Time: 03/10/24 09:28
[2024-03-10] MEDS: Ondansetron 4 MG/2 ML Vial IV (08:07)
[2024-03-10] MEDS: Dicyclomine 20 MG/2 ML Vial IM (08:07)
[2024-03-10] MEDS: 0.9% Normal Saline (1000mL) 1,000 ML 999 ML IV (08:07)
[2024-03-10 08:21] LABS: Absolute Lymphocyte Count 1.79 X10^3/uL (0.83-4.51); Absolute Neutrophil Count 1.8 X10^3/uL (2.0-7.7); Basophil# 0.03 X10^3/uL; Basophil% 0.7 % (0-1); Eosinophils% 6.9 % (0-5); Hematocrit 41.5 % (40-54); Hemoglobin 13.5 g/dL (13.0-16.5); Lymphocyte # 1.79 X10^3/ul (0.83-4.51); Lymphocyte % 41.1 % (19-41); Mean Corp Hgb Conc 32.5 g/dL (32-36); Mean Corpuscular Hgb 28.2 pg (27.0-32.0); Mean Corpuscular Volume 86.6 fL (80-94); Mean Platelet Vol. 10.3 fl (6.2-12.0); Monocyte% 9.2 % (0-10); NRBC Flagged by Analyzer 0 % (0-5); Neutrophil # 1.83 X10^3/uL (2.7-7.7); Neutrophil % 41.9 % (47-70); Platelet Count 177 K/mm3 (150-450); RBC Distribution Width CV 12.2 % (11.6-14.6); Red Blood Count 4.79 M/mm3 (4.6-6.2); White Blood Count 4.4 K/mm3 (4.4-11.0)
[2024-03-10 08:33] LABS: AST(SGOT) 27 U/L (15-37); Alanine Aminotransfer ALT/SGPT 31 U/L (16-61); Albumin, Serum 3.9 g/dL (3.2-5.0); Alkaline Phosphatase 44 U/L (45-117); Anion Gap 3 (5-15); BUN 19 mg/dL (7-18); BUN/Creat Ratio 17.4 RATIO (10-20); Bilirubin, Direct 0.28 mg/dL (0.00-0.30); Calcium,Total 8.9 mg/dL (8.5-10.1); Chloride 108 mmol/L (98-107); Creatinine, Serum 1.09 mg/dL (0.70-1.30); EST Glomerular Filtration Rate 81 mL/min (>60); Est Glom Filt Rate - Afr Amer 98 mL/min (>60); Estimated Creatinine Clearance 102.61 ml/min; Globulin 3.3 g/dL (2.2-4.2); Glucose 108 mg/dL (74-106); Lipase 47 U/L (13-75); Potassium 3.7 mmol/L (3.5-5.1); Protein, Total 7.2 g/dL (6.4-8.2); Sodium Level 140 mmol/L (136-145)
[2024-03-10 09:27] VITALS: BP 122/70; PULSE 67; RESP 18; TEMP 35.9; O2SAT 98
== END 2024-03-10 09:28 | disposition home or self-care (01) ==
PROVIDERS: Emergency Provider Emergency Medicine; Visit Provider Emergency Medicine
DX: R10.9 Unspecified abdominal pain (principal); R11.2 Nausea with vomiting, unspecified; R19.7 Diarrhea, unspecified; E86.0 Dehydration; J45.909 Unspecified asthma, uncomplicated
CPT/HCPCS: 80048; 80076; 83690; 85025; 96361; 96372; 96374; 99283; J7030; J2405

== ENCOUNTER 2024-03-24 17:51 | Emergency (ER) | payer MEDICAID, SELFPAY ==
[2024-03-24 17:51] VITALS: BP 127/76; PULSE 69; RESP 16; TEMP 36.6; O2SAT 98; BMI 20.7
--- NOTE | 2024-03-24 19:32 | RAD_ITS ---
EXAM: XR BILATERAL ANKLES COMPLETE, 3 OR MORE VIEWS CLINICAL INDICATION: swelling TECHNIQUE: Frontal, lateral and oblique views of the bilateral ankles. COMPARISON: No relevant prior studies available. FINDINGS: BONES/JOINTS: Small chronic-appearing ossific density adjacent to the tip of the left lateral malleolus. No acute fracture. No subluxation. Normal alignment. Preservation of the joint space. SOFT TISSUES: Mild medial and lateral left soft tissue swelling at the bilateral ankles. No radiopaque foreign body. RAD/Ankle min 3 Views IMPRESSION: Bilateral soft tissue swelling. No visible joint effusion or bone destructive changes. No soft tissue gas. Electronically Signed: Marysol Solis MD at 20:32 EDT ,
--- NOTE | 2024-03-24 20:22 | EX.ED.DYSGE1 ---
HPI History of Present Illness Chief Complaint: Edema Narrative Narrative: Patient is a 34-year-old male with no known significant past medical history who presented to the emergency department with a chief complaint of bilateral lower extremity swelling. Patient states that he recently returned from [place] and noted that when he took his shoes off his ankles and both feet were swollen more than normal. He states that nothing like this is ever happened before prompted him to come here for the valuation management. He states that his legs themselves are normal for him just his ankles and feet are more swollen than normal. He states that he went down to [place] was working down there and moving furniture. [facility] Medical History Asthma Home Medications ?Medication ?Instructions ?Recorded ?Last Taken ?Type cyclobenzaprine 10 mg tablet 10 mg PO TID PRN Muscle Spasm #20 04/03/21 Unknown Rx TABLETS hydrocodone-acetaminophen 5-325mg 1 tab PO Q4H PRN PRN Pain 2 days 04/03/21 Unknown Rx 5mg-325mg #10 TABLETS clindamycin HCl 300 mg capsule 300 mg PO Q6H #40 caps 12/06/21 Unknown Rx (Cleocin HCl) prednisone 20 mg tablet 20 mg PO BID #10 tabs 08/02/22 Unknown Rx albuterol sulfate 90 mcg/actuation 1 - 2 puff inhalation Q4H PRN PRN 08/23/22 Unknown Rx aerosol inhaler (Ventolin HFA) Wheezing #8.5 grams prednisone 50 mg tablet 50 mg PO DAILY 5 days #5 tabs 08/23/22 Unknown Rx albuterol sulfate 90 mcg/actuation 1 - 2 puff inhalation Q4H PRN PRN 09/29/22 Unknown Rx aerosol inhaler (Ventolin HFA) wheezing #1 device prednisone 20 mg tablet 40 mg (2 x 20 mg) PO DAILY 7 days 09/29/22 Unknown Rx #14 tabs cephalexin 500 mg capsule 500 mg PO Q6 #28 CAPSULES 09/28/23 Unknown Rx ondansetron 4 mg disintegrating 4 mg PO Q6H PRN PRN Nausea #15 tabs 03/10/24 Unknown Rx tablet Allergy/AdvReac Type Severity Reaction Status Date / Time Fish Containing Products Allergy Itching Verified 03/24/24 17:51 peanut Allergy Anaphylaxis Verified 03/24/24 17:51 Social History Smoking Status: Never smoker alcohol intake: never substance use type: marijuana ROS ROS ED ROS Narrative Constitutional: Denies fevers, chills, headaches, lightness, dizziness Eyes: Denies change in vision double vision blurry vision Cardiovascular: Denies chest pain Respiratory: Denies coughing wheezing shortness of breath Abdomen: Denies abdominal pain nausea vomit diarrhea : Denies any painful urination, hematuria, polyuria Neurological: Denies numbness, weakness, tingling Musculoskeletal: Denies back pain Skin: Denies rashes or lesions EXAM Physical Exam Narrative Exam Narrative: General: Patient lying in bed rest comfortably did not appear to be in acute distress Head: Atraumatic, normocephalic Eyes: PERRL bilateral, EOMI bilateral, no conjunctival injection noted Neck: Soft, supple, trach midline Cardiovascular: Regular in rhythm no murmurs gallops rubs noted Respiratory: Clear to auscultation bilaterally Extremities: DP pulses +2/4 in the bilateral lower extremities, +5/5 strength noted in bilateral upper and lower extremities, patient does have swelling to the feet bilaterally. This edema goes to his ankles and into his toes nothing higher Neurological: Patient following commands knew that he was at [facility] years 2023 Skin: Warm, dry, intact Const Vital Signs: 03/24/24 17:51 Temperature 98 F Temperature Source Oral Pulse Rate 69 Respiratory Rate 16 Blood Pressure 127/76 H Blood Pressure Mean 93 Pulse Ox 98 Oxygen Delivery Method Room Air MDM MDM MDM Narrative Medical decision making narrative: Patient is a 34-year-old male who presented to the emergency department the chief complaint of bilateral feet swelling. Patient with x-rays performed here on the differential diagnose includes but limited to dependent edema from being on his feet for extended period of time, and musculoskeletal strain, injuries even though he declines this. Once workup is obtained reviewed he will be reevaluated. Patient's x-ray of his bilateral ankles showed soft tissue swelling no visible joint effusion or bone structural lesions no soft tissue gas noted. Patient's urinalysis was reviewed as well which showed no evidence of infection and 15 protein. On reevaluation the patient and the patient would like to go home at this point in time. He is advised to elevate his feet above the level of his heart. He was advised to return with worsening symptoms or other concerns. He was referred to a primary care physician. All question concerns answered bedside Lab Data Labs: Laboratory Results - last 24 hr 03/24/24 20:48 Urine Color Yellow Urine Clarity Sl. Cloudy Urine pH 7.0 Ur Specific [place] 1.010 Urine Protein 15 H Urine Glucose (UA) Normal Urine Ketones Negative Urine Occult Blood Negative Urine Nitrite Negative Urine Bilirubin Negative Urine Urobilinogen Normal Ur Leukocyte Esterase Negative Urine RBC 0 SEEN Urine WBC 0-5 SEEN Ur Squamous Epith Cells 0 SEEN Urine Bacteria 0 SEEN Urine Mucus 0 SEEN Radiography Diagnostic Testing: Clinical Impression(s) from Imaging Studies Ankle X-Ray 03/24/24 19:32 IMPRESSION: Bilateral soft tissue swelling. No visible joint effusion or bone destructive changes. No soft tissue gas. Electronically Signed: Marysol Solis MD at 20:32 EDT Reading Location ID and State: [facility] / [place] Tel , Service support , Discharge Plan Triage Chief Complaint: Edema ED Provider: Mike Russ Dx/Rx/DC Orders Clinical Impression: Bilateral swelling of feet Prescriptions: No Action hydrocodone-acetaminophen [hydrocodone-acetaminophen] 1 TABLET tablet 1 tab PO Q4H PRN PRN (Reason: Pain) 2 Days Qty: 10 0RF cyclobenzaprine [cyclobenzaprine] 10 MG tablet 10 mg PO TID PRN (Reason: Muscle Spasm) Qty: 20 0RF clindamycin HCl [Cleocin HCl] 300 mg capsule 300 mg PO Q6H Qty: 40 0RF prednisone 20 mg tablet 20 mg PO BID Qty: 10 0RF prednisone 50 mg tablet 50 mg PO DAILY 5 Days Qty: 5 0RF albuterol sulfate [Ventolin HFA] 90 mcg/actuation HFA aerosol inhaler 1 - 2 puff inhalation Q4H PRN PRN (Reason: Wheezing) Qty: 8.5 0RF prednisone 20 mg tablet 40 mg PO DAILY 7 Days Qty: 14 0RF albuterol sulfate [Ventolin HFA] 90 mcg/actuation HFA aerosol inhaler 1 - 2 puff inhalation Q4H PRN PRN (Reason: wheezing) Qty: 1 2RF cephalexin [cephalexin] 500 mg capsule 500 mg PO Q6 Qty: 28 0RF ondansetron 4 mg tablet,disintegrating 4 mg PO Q6H PRN PRN (Reason: Nausea) Qty: 15 0RF Primary Care Provider: Care Physician,No Primary Referrals: Care Physician,No Primary [Primary Care Provider] - Castro Peterson MD [Non-Staff] - Activity Restrictions/Additional Instructions: Follow-up with a primary care physician that you were referred to. Return with worsening symptoms or other concerns. Keep your feet elevated above the level of your heart to help reduce the swelling Print Language: Guamanian Disposition Disposition: Home, Self Care
[2024-03-24 20:53] LABS: Bacteria 0 SEEN /hpf (None Seen); Mucous, Urine 0 SEEN /hpf (<or=2+); Red Blood Cells-Urine 0 SEEN /hpf (0-5); Squamous Epithelial Cells - UA 0 SEEN /hpf (0-5)
[2024-03-24 20:54] LABS: Color, Urine Yellow (Yellow); Glucose, Dipstick Normal (Normal); Ketone-Dipstick Negative (Negative); Leukocyte Esterase-Dipstick Negative /ul (Negative); Nitrite-Dipstick Negative (Negative); Occult Blood-Urine Negative /ul (Negative); Protein-Dipstick 15 mg/dl (Negative); Urine Bilirubin Dipstick Negative (Negative); Urine Clarity Sl. Cloudy (Clear); Urine Urobilinogen Normal (Normal)
[2024-03-24 21:02] LABS: White Blood Cells 0-5 SEEN /hpf (0-5)
[2024-03-24 21:51] VITALS: BP 124/78; PULSE 84; RESP 16; TEMP 36.6; O2SAT 99
== END 2024-03-24 21:53 | disposition home or self-care (01) ==
PROVIDERS: Emergency Provider Emergency Medicine; Visit Provider Emergency Medicine
DX: R60.0 Localized edema (principal); J45.909 Unspecified asthma, uncomplicated; Z79.52 Long term (current) use of systemic steroids; Z79.899 Other long term (current) drug therapy
CPT/HCPCS: 73610; 81001; 99282

== ENCOUNTER 2024-03-29 12:23 | Emergency (ER) | payer MEDICAID, SELFPAY ==
[2024-03-29 12:24] VITALS: BP 125/78; PULSE 64; RESP 16; TEMP 36.8; O2SAT 98
--- NOTE | 2024-03-29 13:41 | RAD_ITS ---
HISTORY: Injury/Pain. TECHNIQUE: XR Spine Lumbar 2 or 3 Views. COMPARISON: 04/03/2021. FINDINGS: VERTEBRAE: Vertebral body heights preserved. Posterior elements appear intact. ALIGNMENT: No significant anterior or posterior subluxation. Chronic straightening of the lumbar lordosis. INTERVERTEBRAL DISCS: Disc spaces maintained. RAD/Lumbar Spine 2 or 3 Views IMPRESSION: No acute fracture or dislocation identified in the lumbar spine. Electronically Signed: María Macdonald MD at 15:00 EDT ,
[2024-03-29] MEDS: Ketorolac 60 MG/2 ML Vial IM (13:57)
--- NOTE | 2024-03-29 15:19 | ED.VIS.BACK ---
HPI History of Present Illness Chief Complaint: Back Informant: patient Onset/Context/Timing Onset: Yesterday Context: Sudden Onset Injury: lifting Timing: Continuous Quality: Sharp and Aching Location: Lumbar Worsened by: improves with Movement Relieved by: Nothing Associated Symptoms Associated Symptoms: Radiation to Right Leg and Radiation to Left Leg; Negative for Numbness, Tingling, Fever, Abdominal Pain, Dysuria, Unable to Ambulate, Unable to Transfer, Urinary Retention, Urinary Incontinence, Constipation or Fecal Incontinence Narrative Narrative: Patient presents with low back pain that began yesterday. Patient states he was lifting at work when he felt a pop. Patient states the pain is mainly over the lumbar area. Patient states his pain radiates down both legs. Patient denies any bowel or bladder changes. Patient denies any saddle anesthesia. Patient states his pain is worse with certain movements. Patient states nothing seems to help with the pain. Patient describes the pain as stabbing and sharp. [facility] Medical History Asthma Home Medications ?Medication ?Instructions ?Recorded ?Last Taken ?Type clindamycin HCl 300 mg capsule 300 mg PO Q6H #40 caps 12/06/21 Unknown Rx (Cleocin HCl) prednisone 20 mg tablet 20 mg PO BID #10 tabs 08/02/22 Unknown Rx albuterol sulfate 90 mcg/actuation 1 - 2 puff inhalation Q4H PRN PRN 08/23/22 Unknown Rx aerosol inhaler (Ventolin HFA) Wheezing #8.5 grams prednisone 50 mg tablet 50 mg PO DAILY 5 days #5 tabs 08/23/22 Unknown Rx albuterol sulfate 90 mcg/actuation 1 - 2 puff inhalation Q4H PRN PRN 09/29/22 Unknown Rx aerosol inhaler (Ventolin HFA) wheezing #1 device prednisone 20 mg tablet 40 mg (2 x 20 mg) PO DAILY 7 days 09/29/22 Unknown Rx #14 tabs cephalexin 500 mg capsule 500 mg PO Q6 #28 CAPSULES 09/28/23 Unknown Rx ondansetron 4 mg disintegrating 4 mg PO Q6H PRN PRN Nausea #15 tabs 03/10/24 Unknown Rx tablet cyclobenzaprine 10 mg tablet 10 mg PO QHS PRN PRN Muscle Spasm 03/29/24 Unknown Rx #10 TABLETS hydrocodone-acetaminophen 5-325mg 1 tab PO Q6H PRN PRN Pain 3 days 03/29/24 Unknown Rx 5mg-325mg #10 TABLETS Allergy/AdvReac Type Severity Reaction Status Date / Time Fish Containing Products Allergy Itching Verified 03/29/24 12:26 peanut Allergy Anaphylaxis Verified 03/29/24 12:26 Surgical History no surgical history no surgical history Social History Smoking Status: Never smoker alcohol intake: never substance use type: marijuana ROS ROS ED Constitutional Constitutional ED: Denies chills or fever(s) Eyes Eyes: Denies blurry vision or change in vision ENT ENT ED: Denies rhinorrhea or sore throat Cardiovascular Cardiovascular: Denies chest pain or palpitations Respiratory/Chest Respiratory/Chest: Denies cough or dyspnea Gastrointestinal Gastrointestinal: Denies nausea or vomiting Genitourinary Genitourinary ED: Denies dysuria or hematuria Musculoskeletal Musculoskeletal: Reports back pain; Denies neck pain Integumentary Denies abscess or rash Neurologic Neurologic: Denies headache(s) or weakness Allergic/Immunologic Allergic/Immunologic ED: Denies mouth swelling or urticaria EXAM Physical Exam Const Vital Signs: 03/29/24 12:24 Temperature 98.2 F Temperature Source Oral Pulse Rate 64 Respiratory Rate 16 Blood Pressure 125/78 H Blood Pressure Mean 93 Pulse Ox 98 Oxygen Delivery Method Room Air Positive well nourished and well developed General Appearance ED: well developed and NAD HEENT Reports moist mucous membranes Neck supple and no JVD Back/Spine Back/Spine Narrative: There is tenderness over the left lumbar paraspinal muscles. There is mild midline tenderness. There is no bony crepitance or step-off. Range of motion was limited in all motions of the lumbar spine secondary to pain. Strength is 5/5 bilaterally in the lower extremities. Straight leg raises were negative bilaterally. Sensation was intact to light touch bilaterally in the lower extremities. Deep tendon reflexes were 2/4 bilaterally in the lower extremities. Lumbar Spine / Lower Back: ROM limited and straight leg raise negative bilaterally Neuro oriented x3 and no sensory deficits noted Sensorium / Orientation: alert Motor Exam: strength 5/5 throughout Deep Tendon Reflexes: Rt Patellar (L4): 2+, Lt Patellar (L4): 2+, Rt Ankle (S1): 2+ and Lt Ankle (S1): 2+ Deep Tendon Reflexes Back: Rt Patellar (L4): 2+, Lt Patellar (L4): 2+, Rt Ankle (S1): 2+ and Lt Ankle (S1): 2+ MDM MDM MDM Narrative Medical decision making narrative: Differential diagnosis includes lumbosacral strain, spondylolisthesis, and lumbar compression fracture. X-rays of the lumbar spine will be obtained to assess for compression fracture and spondylolisthesis. Radiography Diagnostic Testing: Clinical Impression(s) from Imaging Studies Lumbar Spine X-Ray 03/29/24 13:41 IMPRESSION: No acute fracture or dislocation identified in the lumbar spine. Electronically Signed: María Macdonald MD at 15:00 EDT Reading Location ID and State: [facility] / [place] Tel , Service support , X-rays of the lumbar spine were obtained. There are 3 views. On my independent interpretation, there is no acute fracture or spondylolisthesis noted. Radiologist also interpreted the x-rays and agrees. Treatment and Re-Evaluation Narrative: Patient was given injection of Toradol here. Patient was advised of his findings. Patient was advised that this is most likely muscular strain. Patient was instructed to use ice to the area. Patient was given prescription for a short course of [place] and Flexeril. Patient was instructed to follow-up with his primary care physician in 5 to 7 days. Patient understood and was agreeable with the plan. All questions were answered. Discharge Plan Triage Chief Complaint: Back ED Provider: Federico Ding Dx/Rx/DC Orders Clinical Impression: Acute lumbosacral myofascial strain, Back pain Instructions: ED Back Sprain/Strain Prescriptions: Changed cyclobenzaprine 10 MG tablet 10 mg PO QHS PRN PRN (Reason: Muscle Spasm) Qty: 10 0RF hydrocodone-acetaminophen 1 TABLET tablet 1 tab PO Q6H PRN PRN (Reason: Pain) 3 Days Qty: 10 0RF No Action clindamycin HCl [Cleocin HCl] 300 mg capsule 300 mg PO Q6H Qty: 40 0RF prednisone 20 mg tablet 20 mg PO BID Qty: 10 0RF prednisone 50 mg tablet 50 mg PO DAILY 5 Days Qty: 5 0RF albuterol sulfate [Ventolin HFA] 90 mcg/actuation HFA aerosol inhaler 1 - 2 puff inhalation Q4H PRN PRN (Reason: Wheezing) Qty: 8.5 0RF prednisone 20 mg tablet 40 mg PO DAILY 7 Days Qty: 14 0RF albuterol sulfate [Ventolin HFA] 90 mcg/actuation HFA aerosol inhaler 1 - 2 puff inhalation Q4H PRN PRN (Reason: wheezing) Qty: 1 2RF cephalexin [cephalexin] 500 mg capsule 500 mg PO Q6 Qty: 28 0RF ondansetron 4 mg tablet,disintegrating 4 mg PO Q6H PRN PRN (Reason: Nausea) Qty: 15 0RF Primary Care Provider: Care Physician,No Primary Referrals: Care Physician,No Primary [Primary Care Provider] - Print Language: Divehi Disposition Disposition: Home, Self Care
[2024-03-29 15:44] VITALS: BP 128/60; PULSE 49; RESP 14; TEMP 36.6; O2SAT 99
--- NOTE | 2024-03-29 16:00 | CM.ED ---
Social Work Reason for Referral: No PCP Referral Source: [place]A anderson Met with patient in room, along with ABRAM Kahn. Introduced to self, role, and reason for visit. Patient confirms he does not have a PCP. Accepted list of area providers, as well as educated to [facility]. Patient agreed to look into. Encouraged patient to establish with primary care for ongoing health needs. Patient denies any other needs or concerns with home going. Patient smiling and pleasant during conversation. Of note, patient has been to the ED this year: 4.17, 9.28, 10.12. and 10.17. Plan: Return home, with PCP resources provided. -VIKKI Benton
== END 2024-03-29 15:47 | disposition home or self-care (01) ==
PROVIDERS: Emergency Provider Emergency Medicine; Referring Provider Emergency Medicine; Visit Provider Emergency Medicine
DX: S39.012A Strain of muscle, fascia and tendon of lower back, initial encounter (principal); X50.0XXA Overexertion from strenuous movement or load, initial encounter; Y99.0 Civilian activity done for income or pay; J45.909 Unspecified asthma, uncomplicated; Z79.52 Long term (current) use of systemic steroids
CPT/HCPCS: 72100; 96372; 99282

== ENCOUNTER 2024-08-22 10:14 | Emergency (ER) | payer MEDICAID, SELFPAY ==
[2024-08-22 10:15] VITALS: BP 129/64; PULSE 55; RESP 16; TEMP 36.3; O2SAT 99; BMI 20.3
--- NOTE | 2024-08-22 10:43 | EX.ED.GENINJ ---
HPI History of Present Illness Chief Complaint: Laceration Informant: patient Narrative Narrative: 34-year-old male presenting to the emergency room with right thumb laceration. Patient sustained a left thumb laceration while breaking down boxes using a utility knife. Unsure of last tetanus. He is right-handed. Tetanus Immunization: Unknown [facility] Medical History Asthma Home Medications ?Medication ?Instructions ?Recorded ?Last Taken ?Type clindamycin HCl 300 mg capsule 300 mg PO Q6H #40 caps 12/06/21 Unknown Rx (Cleocin HCl) prednisone 20 mg tablet 20 mg PO BID #10 tabs 08/02/22 Unknown Rx albuterol sulfate 90 mcg/actuation 1 - 2 puff inhalation Q4H PRN PRN 08/23/22 Unknown Rx aerosol inhaler (Ventolin HFA) Wheezing #8.5 grams prednisone 50 mg tablet 50 mg PO DAILY 5 days #5 tabs 08/23/22 Unknown Rx albuterol sulfate 90 mcg/actuation 1 - 2 puff inhalation Q4H PRN PRN 09/29/22 Unknown Rx aerosol inhaler (Ventolin HFA) wheezing #1 device prednisone 20 mg tablet 40 mg (2 x 20 mg) PO DAILY 7 days 09/29/22 Unknown Rx #14 tabs cephalexin 500 mg capsule 500 mg PO Q6 #28 CAPSULES 09/28/23 Unknown Rx ondansetron 4 mg disintegrating 4 mg PO Q6H PRN PRN Nausea #15 tabs 03/10/24 Unknown Rx tablet cyclobenzaprine 10 mg tablet 10 mg PO QHS PRN PRN Muscle Spasm 03/29/24 Unknown Rx #10 TABLETS hydrocodone-acetaminophen 5-325mg 1 tab PO Q6H PRN PRN Pain 3 days 03/29/24 Unknown Rx 5mg-325mg #10 TABLETS Allergy/AdvReac Type Severity Reaction Status Date / Time Fish Containing Products Allergy Itching Verified 08/22/24 10:17 peanut Allergy Anaphylaxis Verified 08/22/24 10:17 Social History Smoking Status: Never smoker alcohol intake: never substance use type: marijuana ROS ROS ED Constitutional Constitutional ED: Denies chills or weight loss Eyes Eyes: Denies change in vision or diplopia ENT ENT ED: Denies ear pain, rhinorrhea or sore throat Cardiovascular Cardiovascular: Denies chest pain, orthopnea, palpitations or racing heartbeat Respiratory/Chest Respiratory/Chest: Denies cough, dyspnea or orthopnea Gastrointestinal Gastrointestinal: Denies abdominal pain, diarrhea, nausea or vomiting Genitourinary Genitourinary ED: Denies dysuria, hematuria or urinary frequency Musculoskeletal Musculoskeletal: Denies arthralgias or myalgias Integumentary Reports other Details: See history of present illness ; Denies abscess or rash Neurologic Neurologic: Denies headache(s) or weakness Psychiatric Psychiatric: Denies anxiety, depression, suicidal ideation or suicidal thoughts Endocrine Endocrinology: Denies polydipsia, polyphagia or polyuria Allergic/Immunologic Allergic/Immunologic ED: Denies mouth swelling, tongue swelling or urticaria EXAM Physical Exam Const Vital Signs: 08/22/24 10:15 Temperature 97.4 F L Temperature Source Temporal Pulse Rate 55 L Respiratory Rate 16 Blood Pressure 129/64 H Blood Pressure Mean 85 Pulse Ox 99 Oxygen Delivery Method Room Air Positive well nourished and well developed General Appearance ED: well developed HEENT Reports normocephalic, head/scalp atraumatic and moist mucous membranes Eyes PERRL and EOMs intact bilaterally Neck no lymphadenopathy, supple and no JVD Resp normal respiratory effort and clear to auscultation bilaterally Cardio regular rate, regular rhythm and no murmurs GI normal to inspection, nondistended, normoactive bowel sounds and non-tender Palpation: soft Back/Spine no CVA tenderness and normal ROM Extremity Extremity Narrative: There is a 1.5 cm linear laceration over the dorsal interphalangeal joint of the right thumb. Wound edges are approximated. It does gape with bending. Normal tendon function. Neurovascular intact distal. No nail involvement. General Extremety ED: Negative for edema General Extremity: Negative for edema Neuro oriented x3 and CN's II-XII intact bilaterally Sensorium / Orientation: alert Motor Exam: strength 5/5 throughout Psych mental status grossly normal Mood & Affect: Negative for depressed or tearful Skin no rashes or lesions noted and no wounds MDM MDM MDM Narrative Medical decision making narrative: Differential diagnosis includes cutaneous laceration tendon laceration neurovascular injury bony injury joint injury Patient appears neurovascularly intact with normal tendon function. Wound was locally anesthetized using 1% lidocaine washed with Shur-Clens and explored. No foreign bodies were noted. No visualization of the tendon or the joint is seen on exploration. Wound was closed using a total of 3 simple interrupted 4-0 Ethilon sutures. Good homeostasis achieved. Wound to be dressed by nursing. Tetanus will be updated with Adacel. Would recommend stitches removed in 10 days. Local wound care discussed. Return if worsening or concerns History & Record Review Discussion w/independent historian: Patient Discharge Plan Triage Chief Complaint: Laceration ED Provider: Mat Aguila Dx/Rx/DC Orders Clinical Impression: Laceration of thumb Instructions: ED Laceration, Hand: All Closures Prescriptions: No Action clindamycin HCl [Cleocin HCl] 300 mg capsule 300 mg PO Q6H Qty: 40 0RF prednisone 20 mg tablet 20 mg PO BID Qty: 10 0RF prednisone 50 mg tablet 50 mg PO DAILY 5 Days Qty: 5 0RF albuterol sulfate [Ventolin HFA] 90 mcg/actuation HFA aerosol inhaler 1 - 2 puff inhalation Q4H PRN PRN (Reason: Wheezing) Qty: 8.5 0RF prednisone 20 mg tablet 40 mg PO DAILY 7 Days Qty: 14 0RF albuterol sulfate [Ventolin HFA] 90 mcg/actuation HFA aerosol inhaler 1 - 2 puff inhalation Q4H PRN PRN (Reason: wheezing) Qty: 1 2RF cephalexin [cephalexin] 500 mg capsule 500 mg PO Q6 Qty: 28 0RF ondansetron 4 mg tablet,disintegrating 4 mg PO Q6H PRN PRN (Reason: Nausea) Qty: 15 0RF cyclobenzaprine 10 MG tablet 10 mg PO QHS PRN PRN (Reason: Muscle Spasm) Qty: 10 0RF hydrocodone-acetaminophen 1 TABLET tablet 1 tab PO Q6H PRN PRN (Reason: Pain) 3 Days Qty: 10 0RF Primary Care Provider: Care Physician,No Primary Referrals: [facility] [Provider Group] - 10 Day for suture removal Care Physician,No Primary [Primary Care Provider] - Print Language: Swiss Disposition Disposition: Home, Self Care
[2024-08-22] MEDS: Lidocaine 1% (20 ml mdv) 20 ML Vial INFILT (11:19)
[2024-08-22] MEDS: Diphth,Pertuss(Acell),Tet Vac 0.5 ML Vial IM (11:19)
== END 2024-08-22 11:28 | disposition home or self-care (01) ==
LOC: ED 11:22
PROVIDERS: Emergency Provider Emergency Medicine; Visit Provider Emergency Medicine
DX: S61.011A Laceration without foreign body of right thumb without damage to nail, initial encounter (principal); J45.909 Unspecified asthma, uncomplicated; W26.0XXA Contact with knife, initial encounter; Z23 Encounter for immunization
CPT/HCPCS: 12001; 90471; 90715; 99283

== ENCOUNTER 2024-09-22 19:52 | Emergency (ER) | payer MEDICAID, SELFPAY ==
[2024-09-22 19:53] VITALS: BP 117/65; PULSE 75; RESP 15; TEMP 36.2; O2SAT 98
--- NOTE | 2024-09-22 20:10 | RAD_ITS ---
PROCEDURE: ANKLE MIN 3 VIEWS 09/22/2024 REASON FOR EXAM: PAIN TECHNIQUE: 3 views of the left ankle COMPARISON: None FINDINGS: See impression RAD/Ankle min 3 Views IMPRESSION: Negative for acute fracture or malalignment. Lateral soft tissue swelling. Reading Location: [id number]
--- NOTE | 2024-09-22 20:23 | EX.ED.DYSGE1 ---
HPI History of Present Illness Chief Complaint: Lower Extremity Injury Narrative Narrative: Chief complaint and HPI: Left ankle pain and swelling. 34-year-old male with no significant past medical history presents for evaluation of left ankle pain and swelling. Patient states that he was outside when he accidentally stepped on unlevel ground. He inverted his left ankle in which he then developed pain and swelling. He states for a few seconds he had some numbness but this has since resolved. He denies any pain in the foot, toes, calf. Review of systems: See HPI Medications: As listed on the chart Allergies: As listed on the chart PFSH: Per chart Vital signs: As listed on the chart. Reviewed. Physical exam: Gen: A&O x3, NAD Head: Normocephalic, atraumatic Eyes: No sclera icterus, conjunctiva clear ENT: Moist mucous membranes CV: Regular rate Resp: Nonlabored respiration Musc: Full range of motion of all the extremities except for the left ankle secondary to pain and swelling, patient has swelling to the lateral malleoli with some mild ecchymosis -tender to palpation, the rest of the ankle is nontender and unremarkable, foot/toes/heel/calf nontender to palpation with full range of motion, compartments soft, good capillary refill, DP/PT pulse +2, Achilles tendon intact Skin: Warm, dry Neuro: Alert, oriented, grossly intact, sensation intact Psych: Cooperative, appropriate mood and affect [facility] Medical History Asthma Home Medications ?Medication ?Instructions ?Recorded ?Last Taken ?Type clindamycin HCl 300 mg capsule 300 mg PO Q6H #40 caps 12/06/21 Unknown Rx (Cleocin HCl) prednisone 20 mg tablet 20 mg PO BID #10 tabs 08/02/22 Unknown Rx albuterol sulfate 90 mcg/actuation 1 - 2 puff inhalation Q4H PRN PRN 08/23/22 Unknown Rx aerosol inhaler (Ventolin HFA) Wheezing #8.5 grams prednisone 50 mg tablet 50 mg PO DAILY 5 days #5 tabs 08/23/22 Unknown Rx albuterol sulfate 90 mcg/actuation 1 - 2 puff inhalation Q4H PRN PRN 09/29/22 Unknown Rx aerosol inhaler (Ventolin HFA) wheezing #1 device prednisone 20 mg tablet 40 mg (2 x 20 mg) PO DAILY 7 days 09/29/22 Unknown Rx #14 tabs cephalexin 500 mg capsule 500 mg PO Q6 #28 CAPSULES 09/28/23 Unknown Rx ondansetron 4 mg disintegrating 4 mg PO Q6H PRN PRN Nausea #15 tabs 03/10/24 Unknown Rx tablet cyclobenzaprine 10 mg tablet 10 mg PO QHS PRN PRN Muscle Spasm 03/29/24 Unknown Rx #10 TABLETS hydrocodone-acetaminophen 5-325mg 1 tab PO Q6H PRN PRN Pain 3 days 03/29/24 Unknown Rx 5mg-325mg #10 TABLETS Allergy/AdvReac Type Severity Reaction Status Date / Time Fish Containing Products Allergy Itching Verified 09/22/24 19:52 peanut Allergy Anaphylaxis Verified 09/22/24 19:52 Social History Smoking Status: Never smoker alcohol intake: never substance use type: marijuana EXAM Physical Exam Const Vital Signs: 09/22/24 19:53 Temperature 97.2 F L Temperature Source Temporal Pulse Rate 75 Respiratory Rate 15 Blood Pressure 117/65 Blood Pressure Mean 82 Pulse Ox 98 Oxygen Delivery Method Room Air MDM MDM MDM Narrative Medical decision making narrative: 34-year-old male with no significant past medical history presents for evaluation of left ankle pain and swelling. Differential diagnosis includes but is not limited to fracture, sprain. Does not appear dislocated. Patient offered pain medicine but declined. X-ray of the ankle obtained. X-ray of the left ankle without fracture or dislocation. Patient symptoms are likely secondary to a left ankle sprain. Will place him in a Aircast for comfort. Follow-up with orthopedics. Tylenol and ibuprofen as needed for pain. He was given education on RICE therapy. Return precautions explained. Impression: 1. Left ankle sprain 2. Inversion injury of the ankle Radiography Diagnostic Testing: Clinical Impression(s) from Imaging Studies Ankle X-Ray 09/22/24 20:10 IMPRESSION: Negative for acute fracture or malalignment. Lateral soft tissue swelling. [facility] Chief Complaint: Lower Extremity Injury ED Provider: Jaime Garcia Dx/Rx/DC Orders Clinical Impression: Left ankle sprain Instructions: ED Ankle Sprain (Adult), ED RICE Prescriptions: No Action clindamycin HCl [Cleocin HCl] 300 mg capsule 300 mg PO Q6H Qty: 40 0RF prednisone 20 mg tablet 20 mg PO BID Qty: 10 0RF prednisone 50 mg tablet 50 mg PO DAILY 5 Days Qty: 5 0RF albuterol sulfate [Ventolin HFA] 90 mcg/actuation HFA aerosol inhaler 1 - 2 puff inhalation Q4H PRN PRN (Reason: Wheezing) Qty: 8.5 0RF prednisone 20 mg tablet 40 mg PO DAILY 7 Days Qty: 14 0RF albuterol sulfate [Ventolin HFA] 90 mcg/actuation HFA aerosol inhaler 1 - 2 puff inhalation Q4H PRN PRN (Reason: wheezing) Qty: 1 2RF cephalexin [cephalexin] 500 mg capsule 500 mg PO Q6 Qty: 28 0RF ondansetron 4 mg tablet,disintegrating 4 mg PO Q6H PRN PRN (Reason: Nausea) Qty: 15 0RF cyclobenzaprine 10 MG tablet 10 mg PO QHS PRN PRN (Reason: Muscle Spasm) Qty: 10 0RF hydrocodone-acetaminophen 1 TABLET tablet 1 tab PO Q6H PRN PRN (Reason: Pain) 3 Days Qty: 10 0RF Primary Care Provider: Care Physician,No Primary Referrals: Marcellus Diop DO [Med Staff - Active Staff] - 3-5 Days Bautista Parr MD [Med Staff - Active Staff] - 3-5 Days Care Physician,No Primary [Primary Care Provider] - Activity Restrictions/Additional Instructions: Aircast as needed for comfort. Follow-up with orthopedics. Tylenol and ibuprofen as needed for pain. Return back to the ED if symptoms change or worsen. Print Language: [place] Disposition Disposition: Home, Self Care
[2024-09-22 20:55] VITALS: BP 115/72; PULSE 70; RESP 16; TEMP 36.7; O2SAT 99
== END 2024-09-22 21:07 | disposition home or self-care (01) ==
PROVIDERS: Emergency Provider Surgery; Visit Provider Surgery
DX: S93.402A Sprain of unspecified ligament of left ankle, initial encounter (principal); J45.909 Unspecified asthma, uncomplicated; W22.8XXA Striking against or struck by other objects, initial encounter
CPT/HCPCS: 73610; 99283